=== PATIENT | female | born 1940 | race Caucasian/White ===

== ENCOUNTER 2018-01-14 08:01 | Day surgery (SDC) | payer OTHER ==
[~2018-01-14] VITALS: Ht 172.7 cm; Wt 75.6 kg
[2018-01-14] MEDS ORDERED: IOHEXOL 350 MG/ML 50 ML BTL (for Cath Lab) OTHER ONE (08:02)
[2018-01-14 09:14] VITALS: BP 122/83; PULSE 95; RESP 18; TEMP 97.8; O2SAT 96
[2018-01-14] MEDS ORDERED: METF500T4 PO ×2 (09:33→11:03)
[2018-01-14] MEDS ORDERED: MONT10TA4 PO (09:33)
[2018-01-14] MEDS ORDERED: PRAV20TA2 PO (09:33)
[2018-01-14] MEDS ORDERED: FLUT1SPR5 EACH NARE (09:33)
[2018-01-14] MEDS ORDERED: FURO1TAB62 PO (09:33)
[2018-01-14] MEDS ORDERED: FLUT1INH INH (09:33)
[2018-01-14 09:43] LABS: AUTOMATED NEUTROPHIL # 3.2 TH/MM3 (1.8-7.7); BASOPHIL # 0.1 TH/MM3 (0-0.2); BASOPHIL % 0.9 % (0.0-2.0); EOSINOPHIL # 0.6 TH/MM3 (0-0.4); HEMATOCRIT 40.5 % (35.0-46.0); HEMOGLOBIN 13.8 GM/DL (11.6-15.3); LYMPH % 36.6 % (9.0-44.0); LYMPHOCYTE # 2.5 TH/MM3 (1.0-4.8); MEAN CELL VOLUME 84.9 FL (80.0-100.0); MEAN CORPUSCULAR HEMOGLOBIN 28.9 PG (27.0-34.0); MEAN PLATELET VOLUME 8.6 FL (7.0-11.0); MONO % 7.4 % (0.0-8.0); MONOCYTE # 0.5 TH/MM3 (0-0.9); NEUT % 46.1 % (16.0-70.0); PLATELET COUNT 253 TH/MM3 (150-450); RED BLOOD COUNT 4.77 MIL/MM3 (4.00-5.30); WHITE BLOOD COUNT 6.9 TH/MM3 (4.0-11.0)
[2018-01-14] MEDS ORDERED: HEPARIN-NS/PF FLUSH BAG 2,000 ML IV FLUSH ONE (09:46)
[2018-01-14] MEDS ORDERED: HEPARIN SODIUM - IV 10,000 UNITS/10 ML VIAL ONE (09:46)
[2018-01-14] MEDS ORDERED: NITROGLYCERIN INJ 5 ML ONE (09:46)
[2018-01-14] MEDS ORDERED: MIDAZOLAM HCL 2 MG/2 ML VIAL ONE (09:46)
[2018-01-14] MEDS ORDERED: VERAPAMIL HCL 5 MG/2 ML VIAL ONE (09:47)
[2018-01-14 09:49] LABS: PROTHROMBIN TIME - PATIENT 10.5 SEC (9.8-11.6)
[2018-01-14 09:59] LABS: BICARBONATE 24.8 MEQ/L (21.0-32.0); CALCIUM 8.9 MG/DL (8.5-10.1); CREATININE 0.78 MG/DL (0.50-1.00)
--- NOTE | 2018-01-14 11:07 | CATHPROC ---
Aditive HIS Report Study Information Study Number Admission Scheduled Start Study Start [id number] Jan 14 2018 8:01AM 01/14/2018 Jan 14 2018 9:29AM [place] [facility] Cardiac Catheterization Admit Source Facility Department Other [facility] Physician and Clinical Staff Initial King Arzola Reference Library Assistant Thomas RN, Sha Recorder Elle Mac ,RT(R) Scrub Jake Abernathy,RT(R) Procedures Performed Procedure Location (Site) Vessel Name Coronary Angiograms LCA Left Coronary Coronary Angiograms RCA Right Coronary L Heart Cath Wire insertion Radial (right) Radial Art. Equipment Time Life Enrichment Specialist Description Size Mfg Part Number Used/Scraped [id number] 09:37 FARFAN CAMARGO SWAN LEVAR CATHETER FR 7 Used *[id number] TRANSDUCER, TRUWAVE [id number] 09:37 FARFAN CAMARGO * Used W/STOCKCOCK *[id number] [id number] *[id number] [id number] *[id number] 09:37 UYA100 PACK, CCL CUSTOM * Used *[id number] 09:37 UYA100 SUPPORT, ARTERIAL ADULT 10331 *[id number] Used BAND, RADIAL COMPRESSION TR [id number] 10:56 AOMi [employer]ICAL 24CM Used SHORT 24 *[id number] 09:37 Audaster WIRE, EXCHANGE 260CM 3MMJ 260CM Used *[id number] PROBE COVER, STERILE [id number] 09:37 LRN MEDICAL * Used ULTRASOUND W/ GEL *[id number] 09:37 NAMIC MANIFOLD, 4 PORT * Used *[id number] 09:37 NYCOMED OMNIPAQUE, 350 MG, 150ML 150ML [id number] Used [id number] 09:37 [place] [employer] BL[employer]ET,WARM AIR CCL * Used *[id number] SHEATH, FR6 TRANSRADIAL RM*[id number] 09:37 TERUMO MEDICAL FR 6 Used SLENDER 10CM *[id number] SHEATH, FR6 TRANSRADIAL RM*[id number] 09:37 TERUMO MEDICAL FR 6 Used SLENDER 10CM *[id number] 10:47 [place] PRIME WIRE, VERRATA 185CM 185CM Used *[id number] History: Current Medications Medication Dosage/Unit Route Frequency Last Date/Time Taken LASIX Glucophage Statins (any) History: Risk Factors Family History of Hypertension Dyslipidemia Previous [place] Previous Heart Failure Premature CAD Yes Yes No No No Prior Valve Prior PCI Prior CABG Surgery No No No Cerebrovascular Peripheral Artery Chronic Lung On Dialysis Diabetes Diabetes Therapy Disease Disease Disease No No No Yes Yes Oral History: Symptoms/Diagnosis Selection Items SOB History: Other Disease Selection Items HTN History: Other Current Smoker Quit No 50 Years Ago Labs Hgb (g/dl) Hct (%) WBC (l/cumm) Platelets (thousands) 11.60-17.00 35.00-51.00 4.00-11.00 150.00-450.00 13.8 40.5 6.9 253 Glucose (mg/dl) BUN (mg/dl) Creatinine (mg/dl) BUN:Creatinine (1:x) 74.00-106.00 7.00-18.00 0.50-1.30 10.00-20.00 105 15 0.8 18.8 Na (meq/l) K (meq/l) 136.00-145.00 3.50-5.10 142 4.2 INR (PTT:PT) 0.90-1.10 1 CPK-MB (ng/ML) 0.50-3.60 Not Drawn Medication Medication Total Dose (Bolus/Oral) Medication Total Dosage/Unit 1% XYLOCAINE 10 mL FENTANYL 50 mcg HEPARIN 4500 units RADIAL COCKTAIL 5 mL (Bolus) Medications (Bolus/Oral) Medication Time Given Dosage/Unit Administered By Reason 1% XYLOCAINE 01/14/2018 10:12:09 AM 10 mL King Wright 10 mL 1% XYLOCAINE given in lab by King Wright in Left Wrist via Subcutaneous. Ordered by King Hu FENTANYL 01/14/2018 10:12:25 AM 50 mcg Sha Guzman RN 50 mcg FENTANYL given in lab by Sha Guzman RN in Left Wrist via Peripheral IV. Ordered by King Wright Ntg 200mcg Verapamil 2.5mg Heparin RADIAL COCKTAIL 01/14/2018 10:14:05 AM 5 mL (Bolus) King Wright 3000U 5 mL (Bolus) RADIAL COCKTAIL given in lab by King Wright in Right Radial via Radial. Using [S olution Name]. Ordered by King Wright Reason: Ntg 200mcg Verapamil 2.5mg Heparin 3000U. HEPARIN 01/14/2018 10:38:26 AM 4500 units Sha Guzman RN 4500 units HEPARIN given in lab by Sha Guzman RN in Left Wrist via Peripheral IV. Ordered by King Goldman Medication (Drip) Medication Time Given Dosage/Unit Concentration/Unit Diluent (ml) Solution IV Solutions 01/14/2018 9:50:51 AM 50 mL (IV) NaCl .9 Patient arrived on IV Solutions in Left Wrist via Peripheral IV. Pump/Drip Flow using NaCl .9. Initial Case Assessment Cardiovascular HR Rhythm NIBP Chest Pain 82 sr 111/76 0 Edema Present Skin color Skin None Normal Warm Dry Circulatory - Right Pulses Dorsalis Pedis Femoral Radial 2 2 2 Scale (0,1,2,3,4,d) Circulatory - Left Pulses Dorsalis Pedis Femoral Radial 2 2 Scale (0,1,2,3,4,d) Circulatory - Lower Extremities Color Lower Right Color Lower Left Normal Normal Neurological State Oriented to time-place- Alert Moves all extremities person Respiration - General Respiration Rate SpO2 (%) (B/min) 19 94 Final Case Assessment Cardiovascular HR Rhythm NIBP Chest Pain 71 sr 93/61 0 Edema Present Skin color Skin None Normal Warm Dry Circulatory - Right Pulses Dorsalis Pedis Femoral Radial 2 2 2 Scale (0,1,2,3,4,d) Circulatory - Left Pulses Dorsalis Pedis Femoral Radial 2 2 Scale (0,1,2,3,4,d) Circulatory - Lower Extremities Color Lower Right Color Lower Left Normal Normal Neurological State Oriented to time-place- Alert Moves all extremities person Respiration - General Respiration Rate SpO2 (%) (B/min) 16 93 Chronological Log Time Study Chronological Log 9:38:00 Patient arrived via Bed. 9:38:02 Patient Name, D.O.B, / Armband Verified By R.N. Vitals capture started with the following parameters, Patient=Adult, Interval=5 min, Initial Pr wrtpld=564 mmHg, 9:44:53 Deflation Rate=5 mmHg, Cuff placed on Unknown 9:45:28 QZ=364 bpm, BBCU=067/84 mmhg, SpO2=96.0 %, Resp=12 B/min, Pain=0, Fausto=10, Feldman=2 9:50:27 HR=92 bpm, JSVE=779/76 mmhg, SpO2=96.0 %, Resp=18 B/min 9:50:31 Consent signed by the physician and the patient and verified by the [facility] staff. 9:50:37 Pre-op and post- op instructions given; patient acknowledges understanding of instructions. 9:50:38 Verbal Stimulation=2 Physical Stimulation=2 Airway=2 Respiration=2 TOTAL=8. (0=absent, 1=li mited, 2=present) 9:50:41 Patient has been NPO for More than 6Hrs. 9:50:42 Skin Breakdown- none per patient 9:50:48 Patient Warmer Placed on the Table. 9:50:49 [place] Prominences Protected 9:50:50 A # 20 IV was noted in the Wrist (left). Grade = 0 9:50:51 Patient arrived on IV Solutions in Left Wrist via Peripheral IV. Pump/Drip Flow using NaCl . 9. 9:50:52 History and physical on the chart or being dictated. Assessment: Initial Case, HR=82 BPM, Rhythm=sr, BNII=872/76 mmhg, Chest Pain=0, Edema=None, Col or=Normal, Skin = Warm, Dry Right Pulses: Alexei Ped=2, Femoral=2, Radial=2 Left Pulses: Alexei Ped=2, Femoral=2 9:50:53 Lower Right Extremities: Color=Normal Lower Left Extremities: Color=Normal Neurological: State=Alert, Ox3, ACEVES Respiration: Resp=19 B/min, SpO2=94 % 9:50:56 Reference ECG taken 9:55:13 Right radial, right brachial, and right groin prepped with 2% chlorhexidine, and draped afte r a 3 min. waiting time. 9:55:24 HR=87 bpm, VEBK=158/81 mmhg, SpO2=96.0 %, Resp=11 B/min, Pain=0, Fausto=10, Feldman=2 10:00:00 MD paged 10:00:25 HR=84 bpm, HUDN=205/78 mmhg, SpO2=93.0 %, Resp=28 B/min, Pain=0, Fausto=10, Feldman=2 10:01:00 MD responded 10:03:59 MD arrived. 10:05:26 HR=81 bpm, UELC=706/76 mmhg, Resp=15 B/min, Pain=0, Fausto=10, Feldman=2 10:07:26 Pressure channel 2 zeroed. 10:10:25 HR=93 bpm, VLXU=348/78 mmhg, SpO2=93.0 %, Resp=13 B/min, Pain=0, Fausto=10, Feldman=2 Time Out. Correct patient, correct procedure, correct physician, power injector not loaded with contrast with surgical 10:10:47 team present. Time Out Concurred by MD and individual staff in procedure. 10:11:08 Case Start 10 mL 1% XYLOCAINE given in lab by King Wright in Left Wrist via Subcutaneous. Ordered by King Wright 10:12:09 G. 10:12:25 50 mcg FENTANYL given in lab by Sha Guzman RN in Left Wrist via Peripheral IV. Ordered by King Wright. 10:13:03 Access site was Right Radial Artery. A SHEATH, FR6 TRANSRADIAL SLENDER 10CM FR 6 was advanced into the Radial (right) using the Perc utaneous 10:13:40 technique. 5 mL (Bolus) RADIAL COCKTAIL given in lab by King Wright in Right Radial via Radial. Us ing [Solution Name]. 10:14:05 Ordered by King Wright. Reason: Ntg 200mcg Verapamil 2.5mg Heparin 3000U. 10:15:27 HR=92 bpm, ZFPX=511/71 mmhg, SpO2=90.0 %, Resp=13 B/min, Pain=0, Fausto=10, Feldman=2 10:18:26 Access site was right Brachial Artery. A SHEATH, FR6 TRANSRADIAL SLENDER 10CM FR 6 was advanced into the Brach. Vein (right) using the Percutaneous :18:41 technique. 10:20:27 HR=76 bpm, WJII=084/67 mmhg, SpO2=89.0 %, Resp=14 B/min, Pain=0, Fausto=10, Feldman=2 10:20:53 A SWAN LEVAR CATHETER FR 7 was inserted via Brach. Vein (right) 10:23:09 Saturation: Site=Ao (Aorta) , O2=98.1 %, Hgb=13.8 gm/dl, Condition=Condition 1. Used in [facility]. Recorded Pressure: PCW, HR=81, Condition=Condition 1 10:23:30 (Pulmonary Capillary Wedge) PCW 10:24:37 Saturation: Site=PA (Pulmonary Artery) , O2=74.7 %, Hgb=13.8 gm/dl, Condition=Condition 1. Used in calculation. 10:25:24 HR=77 bpm, NIBP=97/68 mmhg, SpO2=89.0 %, Resp=12 B/min, Pain=0, Fausto=10, Feldman=2 Recorded Pressure: MPA, HR=78, Condition=Condition 1 10:25:37 (Main Pulmonary Artery) MPA 45//35 Recorded Pressure: RV, HR=78, Condition=Condition 1 10:26:11 (Right Ventricle) RV 43/7/11 Recorded Pressure: RA, HR=70, Condition=Condition 1 10:26:58 (Right Atrium) RA 10:27:26 [place] Levar Catheter Removed A JR 4.0 INFINITI CATHETER FR 5 was advanced over a wire. OMNIPAQUE, 350 MG, 150ML 150ML was us ed for 10:28:22 injections. Recorded Pressure: LV, HR=81, Condition=Condition 1 10:29:26 (Left Ventricle) LV 103/8/19 Recorded Pressure: LV, Ao, HR=81, Condition=Condition 1 10:29:39 (Left Ventricle) LV 107/9/16, (Aorta) Ao 102/63/80 10:30:24 The RCA was injected and visualized at various angles. OMNIPAQUE, 350 MG, 150ML 150ML used . 10:30:28 HR=80 bpm, WKRA=972/60 mmhg, SpO2=90.0 %, Resp=12 B/min, Pain=0, Fausto=10, Feldman=2 10:30:56 Catheter was removed A JL 3.5 INFINITI CATHETER FR 5 was advanced over a wire. OMNIPAQUE, 350 MG, 150ML 150ML was us ed for 10:31:49 injections. 10:33:16 The LCA was injected and visualized at various angles. OMNIPAQUE, 350 MG, 150ML 150ML used . 10:35:29 HR=75 bpm, EZPO=636/62 mmhg, SpO2=89.0 %, Resp=13 B/min, Pain=0, Fausto=10, Feldman=2 10:38:26 4500 units HEPARIN given in lab by Sha Guzman RN in Left Wrist via Peripheral IV. Ordered by King Wright 10:40:30 HR=76 bpm, NIBP=95/64 mmhg, UlX7=598 %, Resp=18 B/min, Pain=0, Fausto=10, Feldman=2 10:43:11 Pressure channel 1 zeroed. 10:45:29 HR=81 bpm, NIBP=93/64 mmhg, SpO2=91 %, Resp=18 B/min, Pain=0, Fausto=10, Feldman=2 10:46:54 Flow Wire was was placed in the LAD Prox. The FFR measures ~FFR~ percent. The IFR measures 0.95 Percent. 10:49:55 The PRIME WIRE, VERRATA 185CM 185CM was removed. 10:50:11 A WIRE, EXCHANGE 260CM 3MMJ 260CM was inserted via Radial (right). 10:50:27 Catheter was removed 10:50:32 HR=73 bpm, NIBP=90/53 mmhg, SpO2=92 %, Resp=13 B/min, Pain=0, Fausto=10, Feldman=2 10:51:18 Case End 10:52:55 Activated Clotting Time Drawn 10:55:31 HR=71 bpm, NIBP=93/61 mmhg, SpO2=93 %, Resp=18 B/min, Pain=0, Fausto=10, Feldman=2 10:56:49 Catheter(s) removed without difficulty Radial Compression Device Used. 13 mLs of air placed in BAND, RADIAL COMPRESSION TR SHORT 24 24 CM. Affected 10:56:54 hand 93 % O2 saturation. 10:58:42 ACT (Normal Range 90-180) = 319 10:59:09 VEENOUS Sheath left in place, RIGHT BRACIAL, will be removed in Holding Area 11:00:32 HR=71 bpm, NIBP=93/61 mmhg, SpO2=93 %, Resp=16 B/min, Pain=0, Fausto=10, Feldman=2 11:01:23 Vitals capture stopped. 11:01:29 Sterile dressing applied to site 11:01:30 No case complications noted. 11:01:31 Cine recording checked. 11:01:35 Bedside Report will be given. Assessment: Final Case, HR=71 BPM, Rhythm=sr, NIBP=93/61 mmhg, Chest Pain=0, Edema=None, Color= Normal, Skin = Warm, Dry Right Pulses: Alexei Ped=2, Femoral=2, Radial=2 Left Pulses: Alexei Ped=2, Femoral=2 11:01:44 Lower Right Extremities: Color=Normal Lower Left Extremities: Color=Normal Neurological: State=Alert, Ox3, ACEVES Respiration: Resp=16 B/min, SpO2=93 % 11:05:40 A Left Heart Cath was performed. 11:05:46 Patient moved to stretcher 11:07:15 Clinical correlaton risk stratification. End Study - Contrast Media Used In Study Contrast Total Opened (mL) Total Used (mL) Total Wasted (mL) Omnipaque 40 40 0 End Study - Maximum Contrast Load Max Contrast Load (mL) 472.4 End Study - Radiation Exposure Fluoro Time (minutes) 3.9 End Study - Patient Disposition Complications Transferred To No Telemetry Bed
[2018-01-14] MEDS ORDERED: ONDANSETRON HCL 4 MG/2 ML VIAL ONE (11:12)
--- NOTE | 2018-01-14 13:24 | MA ---
cc: King Wright DO DATE: 01/14/2018 DATE OF PROCEDURE: 01/14/2018. PROCEDURE: Left heart catheterization, right heart catheterization, coronary angiogram, IFR of LAD, ultrasound-guided access. PREPROCEDURE DIAGNOSES: Severe mitral regurgitation/tricuspid regurgitation, for possible surgery, shortness of breath. POSTPROCEDURE DIAGNOSES: Severe mitral regurgitation/tricuspid regurgitation, moderate coronary artery disease, mild pulmonary hypertension. MEDICATIONS: 1. Fentanyl 50 mcg. 2. Nitro 200 mcg. 3. Verapamil 2.5 mg. 4. Heparin 7500 units. CONTRAST USED: 40 mL. FLUOROSCOPY: 3.9 minutes. MODERATE SEDATION: 0 minutes. FRAILTY SCORE: 3. ESTIMATED BLOOD LOSS: 10 mL. PROCEDURAL SUMMARY: Juana Alberto is a pleasant 77-year-old female who sees my partner, Dr. Saldana, in the office and underwent an echocardiogram and was found to have severe mitral and tricuspid regurgitation. She was recommended cardiac catheterization in anticipation of possible surgery. Risks, benefits and alternatives were explained to her and she consented as such. She was brought to the lab and prepped in the usual sterile fashion. The right radial artery was accessed using a modified Seldinger technique and placement of a 5/6 [place] slender sheath. Right brachial vein was accessed using a modified Seldinger technique and ultrasound guidance with placement of a 5/6 [place] Slender sheath. Both were easily aspirated and flushed. A Reading was advanced through the brachial sheath to a wedge position. Oxygen saturations as well as pressures were recorded in a standard pullback fashion throughout the heart. Reading-Caprice catheter was removed. A JR4 was advanced over a J-wire to the ascending aorta and across the aortic valve for measurement of left ventricular pressure. This was pulled back across the aortic valve showing no significant gradient of aortic stenosis. JR4 was used for selective angiography of the right coronary artery system. This is exchanged out for a JL3.5, which was used for selective angiography of the left coronary artery system. JL3.5 was removed over a J-wire. As there was concern for mid-LAD disease and this would change her overall surgery, I felt this needed to be further investigated. As there was no plan to fix this as it would need to fix during surgery, I decided to do IFR through my 5-Guatemalan sheath. The patient was given additional heparin as an anticoagulant. A Verrata wire was taken into the distal LAD. IFR was measured at 0.95 showing nonsignificant stenosis. The wire was removed. Catheter was removed. A radial band was placed over the arteriotomy site for hemostasis. FINDINGS: LEFT MAIN: Normal-sized vessel with no disease. It bifurcates into an LAD and circumflex. LAD: Mild luminal irregularities throughout the proximal portion. Mid-portion after the first diagonal has a focal 50% to 60% lesion (iFR 0.95 showing nonsignificant stenosis). The distal LAD has no significant disease. It gives off 1 major diagonal with mild luminal irregularities. LEFT CIRCUMFLEX: Normal-sized vessel with 30% lesion in the proximal to mid-portion. It gives off 1 major obtuse marginal with no significant disease. RCA: Mild luminal irregularities throughout the proximal and mid-portion. Distally, it supplies the PDA as well as 2 small PLVs. HEMODYNAMICS: RA: 8. RV: 43/7. RVEDP: 11. PA: 45/25. Mean PA: 35. Wedge: 13. Cardiac output: 5.4. Cardiac index: 2.8. LVEDP: 16. IMPRESSIONS: 1. Severe mitral and tricuspid regurgitation. 2. Moderate coronary artery disease. 3. Mild pulmonary hypertension. 4. Shortness of breath. RECOMMENDATIONS: 1. Ms. Alberto appears to have no significant coronary artery disease that would need to be bypassed if she did have open heart surgery. 2. We will plan on doing a JACLYN on Wednesday to evaluate her valves in anticipation of possible open heart surgery. 3. She will be discharged home today. Thank you for allowing me to see Juana Alberto. If there are any questions, please do not hesitate to call. DO ROLA Doyle/ADITHYA , 12:55 PM , 01:24 PM
--- NOTE | 2018-01-14 16:38 | EKG ---
Date Performed: 01/14/2018 Time Performed: 09:19:12 PTAGE: 77 years EKG: Sinus rhythm . Left bundle branch block Abnormal ECG NO PREVIOUS TRACING DOCTOR: Clifford Vela Interpretating Date/Time 01/14/2018 16:21:48
== END 2018-01-14 16:50 | disposition home or self-care (01) ==
LOC: HDIC 08:01 → HDOC 08:01
PROVIDERS: ATTEND Nuclear Medicine Nuclear Cardiology
DX: I34.0 Nonrheumatic mitral (valve) insufficiency (principal); I07.1 Rheumatic tricuspid insufficiency; I25.10 Atherosclerotic heart disease of native coronary artery without angina pectoris; I27.20 Pulmonary hypertension, unspecified; R06.02 Shortness of breath
CPT/HCPCS: 80048; 82810; 85002; 85025; 85610; 85730; 93005; 93460; 93571; C1769; C1893; J1644; J2250; J2405; J3010; Q9967

== ENCOUNTER 2018-01-17 09:14 | Day surgery (SDC) | payer OTHER ==
[~2018-01-17 09:14] MED LIST: FLUT1INH INH; FLUT1SPR5 EACH NARE; FURO1TAB62 PO; METF500T4 PO; MONT10TA4 PO; PRAV20TA2 PO
[2018-01-17] MEDS ORDERED: METOPROLOL TARTRATE 25 MG TAB PO PRN (10:00)
[2018-01-17] MEDS ORDERED: CHLORHEXIDINE GLUCONATE 2 % 1 PACK (2 CLOTHS) TOPICAL PRN (10:00)
[2018-01-17] MEDS ORDERED: POVIDONE IODINE 5% (ANTISEPSIS KIT) 4 APPLICATIONS EACH NARE PRN (10:00)
[2018-01-17] MEDS ORDERED: SODIUM CHLORID 0.9% 500 ML IV PRN (10:00)
[2018-01-17] MEDS ORDERED: INSULIN HUMAN REGULAR 1,000 UNITS/10 ML VIAL SQ PRN (10:00)
[2018-01-17] MEDS ORDERED: LACTATED RINGER'S 1000 ML IV PRN (10:00)
[2018-01-17] MEDS ORDERED: NURSING INFORMATION XX PRN (11:30)
[2018-01-17] MEDS ORDERED: LIDOCAINE HCL 1% PF 5 ML SYRINGE OTHER ONE (12:00)
[2018-01-17] MEDS ORDERED: PROPOFOL 200 MG/20 ML AMP IV ONE (12:00)
--- NOTE | 2018-01-17 12:03 | ECHRPT ---
Indication: CONCLUSIONS Mildly dilated left ventricle. The left ventricular systolic function is severely reduced with an estimated ejection fraction in th e range of 25-30%. There is global left ventricular dysfunction. No atrial level shunt is demonstrated by color flow Doppler or agitated saline imaging. Severe mitral valve regurgitation. The mitral valve regurgitation jet is directed centrally due to poor leaflet coaptation, as well as the posterior leaflet appears somewhat tethered. There is severe tricuspid regurgitation. BP: / HR: Rhythm: Sinus Technical Quality:Good Medications Complications Proc. Components Anesthesia at bedside for moderate sedation. FINDINGS LEFT VENTRICLE Mildly dilated left ventricle. The left ventricular systolic function is severely reduced with an estimated ejection fraction in th e range of 25-30%. There is global left ventricular dysfunction. RIGHT VENTRICLE Grossly normal LEFT ATRIUM The left atrial size is moderately dilated. RIGHT ATRIUM The right atrial size is moderately dilated. ATRIAL APPENDAGES Normal left atrial appendage size with no evidence of thrombus formation. ATRIAL SEPTUM Normal atrial septal thickness. No atrial level shunt is demonstrated by color flow Doppler or agitated saline imaging. AORTA Descending aorta with no significant disease or dissection noted MITRAL VALVE Structurally normal mitral valve. Severe mitral valve regurgitation. The mitral valve regurgitation jet is directed centrally due to poor leaflet coaptation, as well as the posterior leaflet appears somewhat tethered. AORTIC VALVE Trileaflet aortic valve. No aortic valve stenosis or regurgitation. TRICUSPID VALVE Structurally normal tricuspid valve. There is severe tricuspid regurgitation. VESSELS Grossly normal Trivial pulmonary valve regurgitation. King Wright DO (Electronically Signed) Final Date:17 Jan 2018 12:02
[2018-01-17] MEDS ORDERED: RESP: ALBUTEROL 2.5 MG/IPRATROPIUM 0.5 MG NEB (SCH) NEB ONE (13:30)
--- NOTE | 2018-01-17 14:42 | RADRPT ---
EXAM DATE/TIME: 01/17/2018 13:45 [place] COMPARISON: No previous studies available for comparison. INDICATIONS : Preop cardiac surgery. MEDICAL HISTORY : Chronic obstructive pulmonary disease. Diabetic. SURGICAL HISTORY : None. ENCOUNTER: Initial ACUITY: 1 day PAIN SCORE: 0/10 LOCATION: Bilateral neck PEAK SYSTOLIC VELOCITIES (cm/sec): ICA/CCA RATIO: Right: 1.0 Left: 1.1 ICA: Right: 69.1 Left: 77.4 CCA: Right: 67.2 Left: 72.3 ECA: Right: 31.3 Left: 32.2 VERTEBRAL: Right: 44.9 antegrade Left: 44.4 antegrade Elevated flow velocities and ICA/CCA ratios have been found to correlate with increased degrees of vessel stenosis, calculated as percentage of diameter relative to a normal segment of distal ICA/CCA FINDINGS: RIGHT CAROTID: No significant stenosis is visualized. The waveforms are within normal limits. LEFT CAROTID: No significant stenosis is visualized. The waveforms are within normal limits. VERTEBRAL ARTERIES: Antegrade flow is seen in both vertebral arteries. MISCELLANEOUS: None. CONCLUSION: Negative carotid ultrasound examination. Jayesh Antonio MD on January 17, 2018 at 14:39 Board Certified Radiologist. This report was verified electronically.
[2018-01-17] MEDS ORDERED: IOHEXOL 350 MG/ML 10 ML VIAL (for RAD DIAG) IVCONTRAST ONE (15:00)
--- NOTE | 2018-01-17 16:21 | MB ---
cc: Milla Cline DATE: 01/17/2018 HISTORY OF PRESENT ILLNESS: A 77-year-old female patient of Dr. Narda Torres and Dr. Saldana who has had symptoms of shortness of breath and some lower extremity edema for the past month, easily fatigued, history of mitral regurgitation and tricuspid regurgitation, recently underwent a cardiology followup, which showed ejection fraction of 40%; however on catheterization the EF was more like 30%. The echo showed some global hypokinesis. The right ventricle was moderately dilated, left atrium moderately dilated. The aortic valve had a valve area of 2.7. The mitral valve was severe regurgitation with an eccentric jet. The tricuspid valve had severe regurgitation with RV pressure of 71 mmHg consistent with moderate pulmonary hypertension. She underwent cardiac catheterization on the 4th, right and left heart catheterization, which showed some approximately 50% stenosis in the mid portion of the LAD. The circuit had some mild disease of 30%. RA pressures were 8, RV pressures 43/7, PA pressures are 45/25, a wedge pressure of 13, cardiac output of 5.4. She underwent transesophageal echocardiogram today by Dr. Wright and we were consulted today by Dr. Wright for mitral valve and tricuspid valve repair/replacement. PAST MEDICAL HISTORY: Includes tricuspid regurgitation, pulmonary hypertension and mitral regurgitation. Diabetes mellitus, diet controlled. She has documented metformin, but does not take it. She checks her blood sugars. Hyperlipidemia, hypertension, left bundle branch block, history of PSVT, postural vertigo. PAST SURGICAL HISTORY: No surgical history. ALLERGIES: NO KNOWN ALLERGIES: HOME MEDICATIONS: 1. Flonase. 2. Lasix. 3. Losartan. 4. Pravachol. FAMILY HISTORY: Mother at 72 from diabetes. SOCIAL HISTORY: The patient is with 3 children. Remote history of tobacco in her early 20s. No alcohol. Retired. She does wear reading glasses. REVIEW OF SYSTEMS: CONSTITUTIONAL: No night sweats, fever, heat and cold intolerance. SKIN: No psoriasis, itching or hives. HEENT: No blurred vision or hearing loss. RESPIRATORY: Positive for shortness of breath. No paroxysmal nocturnal dyspnea. CARDIOVASCULAR: As above in the HPI. GASTROINTESTINAL: No diarrhea or vomiting. GENITOURINARY: No burning, frequency or urgency. CENTRAL NERVOUS SYSTEM: History of TIA, CVA or seizure disorder. ENDOCRINOLOGY: Positive for diabetes. PHYSICAL EXAMINATION: VITAL SIGNS: Blood pressure is 120/80, heart rate of 94, temperature T-max 97.8, room air 93%. GENERAL: Awake, alert, in no acute distress. HEENT: Head is normocephalic, atraumatic. Pupils equal and reactive. Oral mucosa pink, moist. NECK: Supple. No JVD. HEART: Heart sounds S1, S2. Regular rate and rhythm. There is a holosystolic mitral regurgitation murmur. LUNGS: Clear to auscultation. No wheezes, rales or rhonchi. ABDOMEN: Soft, nontender, no masses or organomegaly. EXTREMITIES: Reveal trace edema with no cyanosis, no venous insufficiency. LABORATORY DATA: Shows hemoglobin 13, hematocrit of 40, white cell count of 6.9, platelet count of 253. Sodium 142, potassium 4.2, BUN of 18, creatinine 0.78. INR 1.0. IMAGING STUDIES: Carotid ultrasound is unremarkable. TAVR CTA is pending. ASSESSMENT AND PLAN: This is a 77-year-old female with severe mitral and tricuspid regurgitation. The films have been evaluated by Dr. Mahsa Hurley. The plan will be for mitral valve repair/replacement, tricuspid valve repair/replacement on 01/24/2018. The procedures, alternatives and risks have been discussed with the patient. She has elected for a tissue valve. This was also discussed with the . Full workup is still pending including the CTA of the chest. Further planning per Dr. Mahsa Hurley. PRAFUL Alexis MD JRT/MARC , 03:50 PM , 04:20 PM
[2018-01-17 17:37] LABS: BILIRUBIN, URINE NEG (NEG); BLOOD, URINE NEG (NEG); GLUCOSE,URINE NEG (NEG); KETONE, URINE NEG (NEG); NITRITE,URINE NEG (NEG); PH, URINE 5.5 (5.0-8.5); SQUAMOUS EPITHELIAL CELL URINE 1 /hpf (0-5); URINE COLOR LIGHT-YELLOW (YELLW/STRAW); URINE LEUKOCYTE ESTERASE NEG (NEG)
[2018-01-17 17:38] LABS: AUTOMATED NEUTROPHIL # 3.5 TH/MM3 (1.8-7.7); BASOPHIL # 0.1 TH/MM3 (0-0.2); EOSINOPHIL # 0.4 TH/MM3 (0-0.4); EOSINOPHIL % 5.7 % (0.0-4.0); HEMATOCRIT 38.9 % (35.0-46.0); LYMPH % 33.7 % (9.0-44.0); LYMPHOCYTE # 2.2 TH/MM3 (1.0-4.8); MEAN CELL VOLUME 86.2 FL (80.0-100.0); MEAN CORPUSCULAR HEMOGLOBIN 28.9 PG (27.0-34.0); MEAN CORPUSCULAR HGB CONC 33.5 % (32.0-36.0); MEAN PLATELET VOLUME 8.9 FL (7.0-11.0); MONO % 6.6 % (0.0-8.0); MONOCYTE # 0.4 TH/MM3 (0-0.9); PLATELET COUNT 225 TH/MM3 (150-450); RED BLOOD COUNT 4.51 MIL/MM3 (4.00-5.30); RED CELL DISTRIBUTION WIDTH 14.1 % (11.6-17.2); WHITE BLOOD COUNT 6.6 TH/MM3 (4.0-11.0)
[2018-01-17 17:42] LABS: PROTHROMBIN TIME - PATIENT 10.5 SEC (9.8-11.6)
[2018-01-17 17:58] LABS: ALBUMIN 3.6 GM/DL (3.4-5.0); AST (GOT) 24 U/L (15-37); BICARBONATE 24.9 MEQ/L (21.0-32.0); BLOOD UREA NITROGEN 12 MG/DL (7-18); CALCIUM 8.5 MG/DL (8.5-10.1); CHLORIDE 107 MEQ/L (98-107); CREATININE 0.77 MG/DL (0.50-1.00); GLOMERULAR FILTRATION RATE 73 ML/MIN (>89); GLUCOSE,RANDOM 118 MG/DL (74-106); SODIUM (NA) 140 MEQ/L (136-145)
[2018-01-17 17:59] LABS: ALT (GPT) 49 U/L (10-53)
[2018-01-17 18:02] LABS: ALKALINE PHOSPHATASE 78 U/L (45-117); TOTAL BILIRUBIN ADULT 0.7 MG/DL (0.2-1.0); TOTAL PROTEIN 6.5 GM/DL (6.4-8.2)
[2018-01-17 21:34] LABS: HEMOGLOBIN A1C 5.8 % (4.3-6.0)
--- NOTE | 2018-01-18 08:23 | RADRPT ---
EXAM DATE/TIME: 01/17/2018 15:22 [facility] COMPARISON: No previous studies available for comparison. INDICATIONS : Preoperative Trans Aortic Valve Replacement. IV CONTRAST: 100 cc Omnipaque 350 (iohexol) IV RADIATION DOSE: 28.16 CTDIvol (mGy) MEDICAL HISTORY : Chronic obstructive pulmonary disease. SURGICAL HISTORY : None. ENCOUNTER: Initial ACUITY: 1 day PAIN SCALE: 0/10 LOCATION: Bilateral chest TECHNIQUE: Volumetric scanning was performed using a multi-row detector CT scanner. The data was post processed with a variety of visualization algorithms including full volume maximum intensity projection, multi -planar sliding thin slab reformation, curved planar reformation, and surface rendering techniques. Using automated exposure control and adjustment of the mA and/or kV according to patient size, radiat ion dose was kept as low as reasonably achievable to obtain optimal diagnostic quality images. DIC OM format image data is available electronically for review and comparison. FINDINGS: CARDIAC: The coronaries are very difficult to delineate any detail on the current exam probably due to the hea rt rate. There does appear to be some calcification in the mid LAD. I believe the patient is right co ronary dominant. No pericardial effusions AORTIC ROOT/VALVE: 3 cusps are evident with no calcifications. The aortic root measures 3.8. Mid thoracic aorta measures 3.2 with no calcifications. THORACIC AORTA: Bovine configuration of the aortic arch. Minimal ectasia of the distal arch, just past the left subcl aung suggesting a mild coarctation. No significant stenosis, however. There is some calcification in the distal arch and origin of the left subclavian with no stenosis. ABDOMINAL AORTA: No evidence of aneurysm, mural thrombus, dissection, mural calcification, or stenosis. CELIAC ARTERY: Celiac artery is widely patent. SMA: Superior mesenteric artery is widely patent. RIGHT RENAL ARTERY: Right renal artery is widely patent. LEFT RENAL ARTERY: Left renal artery is widely patent. Small accessory left renal artery is also patent. RIGHT COMMON ILIAC: No evidence of aneurysm, mural thrombus, dissection, mural calcification, or stenosis. The common fe moral measures 7.1 mm. LEFT COMMON ILIAC: No evidence of aneurysm, mural thrombus, dissection, mural calcification, or stenosis. The common fe moral measures 7.4 mm. THORAX: There are bilateral pleural effusions, right greater than left. Reactive type lymph nodes are seen in the pretracheal distribution. There also is suggestion of bihilar adenopathy with chronic interstiti al changes in the bases and some regional bronchiectasis or characteristic of a chronic inflammatory process. ABDOMEN: Cholelithiasis with small stones in the dependent portion of the gallbladder lumen. Diverticular dise ase through out the colon without diverticulitis. The appendix is identified and is radiographically normal. Large amount of stool in the rectal vault. Small hiatal hernia PELVIS: Pelvic viscera is intact. Again, large amount of stool in the rectal wall CONCLUSION: 1. Bovine configuration of the arch. Aortic root is normal in caliber with no significant calcificat ion of the aortic valve. 2. Mild ectasia of the distal arch with suggestion of a mild coarctation. No significant stenosis, ho wever. 3. Abdominal and pelvic vasculature is normal in caliber throughout with the common femorals both jay sure proximally 7-7.5 mm in diameter. 4. Single right with a main and accessory left renal artery. 5. Small moderate bilateral pleural effusions, right greater than left with probable chronic inflamma tory changes in both lung bases as evident by regional bronchiectasis, bihilar and pretracheal adenop athy. 6. Cholelithiasis. 7. Diverticular disease throughout the colon without diverticulitis. 8. Small hiatal hernia. Waqas Berman MD on January 18, 2018 at 8:05 Board Certified Radiologist. This report was verified electronically.
--- NOTE | 2018-01-18 09:25 | RSPPFT ---
DATE OF PROCEDURE: 01/17/18 COMMENTS: Spirometry with FVC of 1.8 predicted 3.0, FEV1 of 0.9 predicted 2.1, FEV1/FVC ratio at 53% predicted 80%. Post-bronchodilator values have not been measured. Lung volumes have not been measured. IMPRESSION: On the basis of the above, patient has an obstructive lung defect.
== END 2018-01-17 17:15 | disposition home or self-care (01) ==
LOC: HSDC 09:14 → HDIC 09:15 → HSDC 17:15
PROVIDERS: ATTEND Nuclear Medicine Nuclear Cardiology
DX: I34.0 Nonrheumatic mitral (valve) insufficiency (principal); I07.1 Rheumatic tricuspid insufficiency; J90 Pleural effusion, not elsewhere classified; J44.9 Chronic obstructive pulmonary disease, unspecified; E78.5 Hyperlipidemia, unspecified; K44.9 Diaphragmatic hernia without obstruction or gangrene; K80.20 Calculus of gallbladder without cholecystitis without obstruction; E11.9 Type 2 diabetes mellitus without complications; Z79.84 Long term (current) use of oral hypoglycemic drugs; Z01.818 Encounter for other preprocedural examination
CPT/HCPCS: 01922; 74174; 80053; 81001; 83036; 85025; 85610; 86850; 86900; 86901; 87641; 93312; 93320; 93325; 93880; 94010; 94664; Q9967

== ENCOUNTER 2018-01-24 05:28 | Inpatient (IN) | payer OTHER, MEDICARE ==
[~2018-01-24] VITALS: Ht 172.7 cm; Wt 78.9 kg
[2018-01-24] VITALS (12 sets, daily range): BP systolic 108–122; BP diastolic 59–68; PULSE 98–108; RESP 14–18; TEMP 97.6–97.8; O2SAT 92–99
[2018-01-24] MEDS ORDERED: METOPROLOL TARTRATE 25 MG TAB PO PRN (05:45)
[2018-01-24] MEDS ORDERED: POVIDONE IODINE 5% (ANTISEPSIS KIT) 4 APPLICATIONS EACH NARE PRN (05:45)
[2018-01-24] MEDS ORDERED: SODIUM CHLORID 0.9% 500 ML IV PRN (05:45)
[2018-01-24] MEDS ORDERED: CHLORHEXIDINE GLUCONATE 2 % 1 PACK (2 CLOTHS) TOPICAL PRN (05:45)
[2018-01-24] MEDS ORDERED: ceFAZolin 2 GM PREMIX 50 ML IV SCH ×2 (06:00→13:30)
[2018-01-24] MEDS ORDERED: DEXTROSE 50% IN WATER 50 ML VIAL(D50) IV PUSH PRN ×2 (06:00→13:30)
[2018-01-24] MEDS ORDERED: METOPROLOL TARTRATE 25 MG TAB PO SCH (06:00)
[2018-01-24] MEDS ORDERED: INSULIN REGULAR 100 UNITS in NS 100 ML IV PRN (06:00)
[2018-01-24] MEDS: CHLORHEXIDINE GLUCONATE 4% SOLN 120 ML BTL TOPICAL SCH ×2 (06:00→07:30)
[2018-01-24] MEDS ORDERED: SODIUM CHLORIDE 0.9% FLUSH 10 ML FLUSH IV FLUSH PRN ×3 (06:00→13:30)
--- NOTE | 2018-01-24 06:12 | RADRPT ---
EXAM DATE/TIME: 01/24/2018 06:53 [facility] COMPARISON: No previous studies available for comparison. INDICATIONS : Evaluate for pneumonia, pneumothorax, and/or communicable disease. MEDICAL HISTORY : None. SURGICAL HISTORY : None. ENCOUNTER: Initial ACUITY: 1 day PAIN SCORE: 0/10 LOCATION: Bilateral chest FINDINGS: Small bilateral pleural effusions present. Minimal basilar atelectasis. Mild cardiomegaly. Mildly tor tuous aorta. No pneumothorax. CONCLUSION: 1. Small bilateral pleural effusions with basilar atelectasis. Cardiomegaly. Ishan Miller MD on January 24, 2018 at 6:10 Board Certified Radiologist. This report was verified electronically.
[2018-01-24] MEDS: LACTATED RINGER'S 1000 ML IV PRN ×2 (06:15→14:35)
[2018-01-24] MEDS ORDERED: ASPI81CH5 CHEW (06:15)
[2018-01-24] MEDS ORDERED: HEPARIN SODIUM - SQ 10,000 UNITS/ML VIAL ONE (06:18)
[2018-01-24] MEDS ORDERED: VANCOMYCIN HCL 1000 MG VIAL ONE (06:19)
[2018-01-24] MEDS ORDERED: ceFAZolin 2 GM PREMIX 50 ML ONE (06:19)
[2018-01-24] MEDS ORDERED: ceFAZolin INJ 1,000 MG VIAL ONE (06:19)
[2018-01-24] MEDS: HEPARIN SODIUM - SQ 10,000 UNITS/ML VIAL ONE (06:19)
[2018-01-24] MEDS ORDERED: MIDAZOLAM HCL 5 MG/ML VIAL (1 ML) ONE (07:02)
[2018-01-24] MEDS ORDERED: fentaNYL CITRATE 250 MCG/5 ML AMP ONE ×2 (07:02)
[2018-01-24] MEDS ORDERED: CUSTODIOL HTK IRR SOLN 2,000 ML ONE (07:25)
[2018-01-24] MEDS: POTASSIUM CHLOR 20 MEQ ONE ×2 (07:26→14:30)
[2018-01-24] MEDS ORDERED: POTASSIUM CHLOR 20 MEQ PREMIX 100 ML ONE (07:28)
[2018-01-24] MEDS ORDERED: MANNITOL INJ 100 ML ONE (07:28)
[2018-01-24] MEDS ORDERED: ALBUMIN 25% INJ 100 ML IV ONE (07:29)
[2018-01-24] MEDS: HEPARIN SODIUM - IV 10,000 UNITS/10 ML VIAL ONE (07:29)
--- NOTE | 2018-01-24 09:35 | PD.CAR.PN ---
CVT Progress Note Subjective/Hospital Course: A 77-year-old female patient of Dr. Narda oTrres and Dr. Saldana , initially seen 01/17/18, who has had symptoms of shortness of breath and some lower extremity edema for the past month, easily fatigued, history of mitral regurgitation and tricuspid regurgitation, recently underwent a cardiology followup, which showed ejection fraction of 40%; however on catheterization the EF was more like 30%. The echo showed some global hypokinesis. The right ventricle was moderately dilated, left atrium moderately dilated. The aortic valve had a valve area of 2.7. The mitral valve was severe regurgitation with an eccentric jet. The tricuspid valve had severe regurgitation with RV pressure of 71 mmHg consistent with moderate pulmonary hypertension. She underwent cardiac catheterization on the , right and left heart catheterization, which showed some approximately 50% stenosis in the mid portion of the LAD. The circuit had some mild disease of 30%. RA pressures were 8, RV pressures 43/7, PA pressures are 45/25, a wedge pressure of 13, cardiac output of 5.4. We were consulted on 01/17 after JACLYN completed by Dr Wright for mitral valve and tricuspid valve repair/replacement. PAST MEDICAL HISTORY: Includes tricuspid regurgitation, pulmonary hypertension and mitral regurgitation. Diabetes mellitus, diet controlled. She has documented metformin, but does not take it. She checks her blood sugars. Hyperlipidemia, hypertension, left bundle branch block, history of PSVT , postural vertigo. 01/24 Pt electively admitted for surgery today Objective: Vital Signs Date Time Temp Pulse Resp B/P (MAP) Pulse Ox O2 Delivery O2 Flow Rate FiO2 01/24/18 06:00 97.6 83 20 110/71 (84) 93 (1) Diabetes mellitus (2) Tricuspid regurgitation (3) Mitral regurgitation Milla Cline January 24, 2018 09:35
[2018-01-24] MEDS: CEFAZOLIN 500 MG in NS IRR BTL 500 ML IRRIGATION SCH ×2 (10:14→13:38)
[2018-01-24] MEDS ORDERED: ePHEDrine/NS 25 MG/5 ML SYRINGE IV ONE (12:00)
[2018-01-24] MEDS ORDERED: SODIUM BICARBONATE 8.4% INJ 50 MEQ/50 ML SYR IV ONE (12:00)
[2018-01-24] MEDS ORDERED: CALCIUM CHLORIDE 10% SOLN 1 GRAM/10 ML SYR IV ONE (12:00)
[2018-01-24] MEDS ORDERED: DOPamine 800 MG/500 ML INJ 500 ML IV ONE (12:00)
[2018-01-24] MEDS ORDERED: PHENYLEPH/NS 1000 MCG/10 ML SYR IV ONE (12:00)
[2018-01-24] MEDS ORDERED: PROPOFOL 500 MG/50 ML BTL IV ONE (12:00)
[2018-01-24] MEDS ORDERED: PHENYLEPHRINE HCL 10 MG/ML VIAL IV ONE (12:00)
[2018-01-24] MEDS ORDERED: EPINEPHrine HCL (1:1000) 1 MG/ML VIAL IV ONE (12:00)
[2018-01-24] MEDS ORDERED: MAGNESIUM SULFATE 1 GM/2 ML VIAL IV ONE (12:00)
[2018-01-24] MEDS ORDERED: AMINOCAPROIC ACID INJ 250 MG/ML 20 ML VIAL IV ONE (12:00)
[2018-01-24] MEDS ORDERED: HEPARIN SODIUM - SQ 10,000 UNITS/ML VIAL OTHER ONE (12:00)
[2018-01-24] MEDS ORDERED: VECURONIUM BROMIDE 10 MG VIAL IV ONE (12:00)
[2018-01-24] MEDS ORDERED: PROTAMINE SULFATE 250 MG/25 ML VIAL IV ONE (12:00)
[2018-01-24] MEDS ORDERED: SUCCINYLCHOLINE CHLORIDE 100 MG/5 ML SYRINGE IV PUSH ONE (12:00)
[2018-01-24] MEDS: BUPIVACAINE LIPOSO PF 1.3% INJ 20 ML, DEXAMETHASONE INJ 4 MG, MORPHINE INJ 8 MG in SODI... IRRIGATION SCH ×3 (13:04→13:38)
[2018-01-24] MEDS ORDERED: LACTATED RINGER'S 1000 ML INJ 500 ML IV PRN (13:24)
[2018-01-24] MEDS ORDERED: DOBUTamine PREMIX DRIP 250 ML IV PRN (13:24)
[2018-01-24] MEDS ORDERED: METOPROLOL TARTRATE 5 MG/5 ML VIAL IV PUSH PRN (13:30)
[2018-01-24] MEDS ORDERED: DEXMEDETOMIDINE INJ 200 MCG in SODIUM CHLORIDE 0.9% INJ 50 ML IV PRN (13:30)
[2018-01-24] MEDS ORDERED: DOPamine 800 MG/500 ML INJ 500 ML IV PRN (13:30)
[2018-01-24] MEDS ORDERED: NITROGLYCERIN-D5W 50 MG/250 ML 250 ML IV PRN (13:30)
[2018-01-24] MEDS ORDERED: SODIUM BICARBONATE 8.4% SOLN 50 MEQ/50 ML VIAL IV PUSH PRN ×2 (13:30)
[2018-01-24] MEDS ORDERED: CALCIUM CHLORIDE 10% 1 GRAM/10 ML VIAL IV PUSH PRN (13:30)
[2018-01-24] MEDS ORDERED: INSULIN REGULAR (IV INFUSION) 100 UNITS in SODIUM CHLORIDE 0.9% INJ 99 ML IV PRN (13:30)
[2018-01-24] MEDS ORDERED: RESP: RACEPINEPHRINE 2.25% 0.5 ML NEB NEB PRN (13:30)
[2018-01-24] MEDS ORDERED: MAGNESIUM SULFATE INJ 2 GM in SODIUM CHLORIDE 0.9% INJ 100 ML IV PRN ×4 (13:30)
[2018-01-24] MEDS ORDERED: MORPHINE SULFATE 4 MG/ML INJ IV PUSH PRN (13:30)
[2018-01-24] MEDS ORDERED: POTASSIUM CHLOR 20 MEQ PREMIX 100 ML IV PRN ×2 (13:30)
[2018-01-24] MEDS ORDERED: ACETAMINOPHEN 650 MG SUPP RECTAL PRN (13:30)
[2018-01-24] MEDS ORDERED: hydrALAZINE HCL 20 MG/ML VIAL IV PUSH PRN (13:30)
[2018-01-24] MEDS ORDERED: CLEVIDIPINE INJ 50 ML IV PRN (13:30)
[2018-01-24] MEDS ORDERED: POTASSIUM CHLORIDE 20 MEQ CONTROLLED RELEASE TAB PO PRN ×2 (13:30)
[2018-01-24] MEDS ORDERED: Post-op Orders (for Pharmacy) OTHER ONE (13:30)
[2018-01-24] MEDS ORDERED: PHENYLEPHRINE INJ 40 MG in DEXTROSE 5% IN WATE 500 ML INJ 496 ML IV PRN ×2 (13:30)
[2018-01-24] MEDS ORDERED: MEPERIDINE HCL 25 MG/ML VIAL IV PUSH PRN (13:30)
[2018-01-24] MEDS ORDERED: RESP: ALBUTEROL 2.5 MG/IPRATROPIUM 0.5 MG NEB (PRN) NEB (13:30)
[2018-01-24] MEDS ORDERED: TERBUTALINE INJ 1 MG/ML AMP SQ PRN (14:15)
[2018-01-24] MEDS ORDERED: DOPamine 400 MG/250 ML PREMIX IV PRN (14:15)
--- NOTE | 2018-01-24 14:22 | RADRPT ---
EXAM DATE/TIME: 01/24/2018 14:06 [place] Corrected on: January 26, 2018; Corrected Report date [facility] COMPARISON: CHEST SINGLE AP, January 24, 2018, 6:53. INDICATIONS : Post CABG MEDICAL HISTORY : Cardiovascular disease. SURGICAL HISTORY : CABG. ENCOUNTER: Subsequent ACUITY: 1 day PAIN SCORE: Non-responsive. LOCATION: Bilateral chest FINDINGS: Interval median sternotomy and CABG/cardiac valve replacement. ETT at the level the clavicles. Right IJ introducer in the proximal SVC. Mediastinal drains in place. No significant pneumothorax. Mild air space disease at the left lung base. Cardiomediastinal contours are stable. Remainder of exam is unch anged. CONCLUSION: 1. Expected postoperative features of recent CABG with tubes and lines as above. 2. No pneumothorax. 3. Mild airspace disease in the left lung base, likely atelectasis. Ty Daniels MD on January 24, 2018 at 14:18 Board Certified Radiologist. This report was verified electronically.
[2018-01-24] MEDS: EPINEPHrine 2 MG/D5W 250 ML IV PRN ×2 (15:27)
[2018-01-24] MEDS: KETOROLAC TROMETHAMINE 30 MG/ML (IVP) VIAL IV PUSH PRN (15:53)
[2018-01-24] MEDS: ACETAMINOPHEN 1000 MG/100 ML 100 ML IV SCH ×2 (15:53→22:00)
--- NOTE | 2018-01-24 15:54 | MB ---
cc: Julisa Martinez MD DATE: 01/24/2018 DATE OF : 1940 HISTORY OF PRESENT ILLNESS: The patient is a 77-year-old female with a past medical history of hypertension, hyperlipidemia, vertigo, who underwent a cardiac catheterization by Dr. Wright on 01/14/2018 which showed severe mitral valve regurgitation, severe tricuspid regurgitation, moderate coronary artery disease and mild pulmonary hypertension. She underwent a transesophageal echocardiogram on 01/17/2018 which showed cardiomyopathy with ejection fraction of 25-30%, severe mitral and, tricuspid valve regurgitation. The patient was electively admitted earlier today and she underwent mitral and tricuspid valve repair by Dr. Hurley. She remained on mechanical ventilation postop. The patient received 2 liters of crystalloids in the OR and 850 mL of Cell Saver. Her urine output was 700 mL. When seen, the patient is on low-dose Diprivan infusion along with epinephrine, 3 mcg per minute, and insulin drip at 6 units an hour. A chest x-ray postop showed no evidence of any pneumothorax, mild airspace disease in the left lung base likely related to atelectasis. Critical Care Medicine was consulted for critical care management. Her current blood pressure is 118/62 on the arterial line with a pulse of 107, and saturation of 95%. PAST MEDICAL HISTORY: Significant for diabetes mellitus, diet controlled, hyperlipidemia, hypertension, vertigo, mild pulmonary hypertension, severe mitral and tricuspid valve regurgitation. PAST SURGICAL HISTORY: Status post mitral and tricuspid valve repair today. ALLERGIES: NO KNOWN DRUG ALLERGIES. REPORTED MEDICATIONS: 1. Flonase. 2. Lasix. 3. Losartan. 4. Pravachol. FAMILY HISTORY: Diabetes mellitus runs in the family. SOCIAL HISTORY: with 3 children. Remote history of tobacco use. No evidence of any alcohol use. The patient is retired. REVIEW OF SYSTEMS: As per HPI. Rest of review of systems unobtainable as the patient is intubated. PHYSICAL EXAMINATION: GENERAL: A 77-year-old male remains on mechanical ventilation postop. VITAL SIGNS: Temperature 97.6, pulse of 107, blood pressure 118/62 on the arterial line, saturation 95%. HEENT: Atraumatic, normocephalic. Pupils equal, round, reactive to light and accommodation. Extraocular muscles intact. Conjunctivae pink. Nonicteric sclerae. Oral mucosa within normal limits. NECK: Supple. No JVD, adenopathy or thyromegaly. Trachea in the midline. HEART: Regular rate and rhythm. Normal S1, S2. Systolic murmur noted. LUNGS: Bilateral equal air entry. No rales or wheezing. ABDOMEN: Soft, nontender, nondistended, positive bowel sounds. EXTREMITIES: No cyanosis, clubbing, edema. NEUROLOGIC: Intubated and sedated. LABORATORY DATA: From 01/17/2018, sodium 140, potassium 4, chloride 107, CO2 24, BUN 12, creatinine 0.77, glucose 118. WBC 6.6, hemoglobin 13, hematocrit 38, platelet count 225. RADIOGRAPHIC STUDIES: Chest x-ray postop showed postop changes, no evidence of pneumothorax. Mild airspace disease in left lung base, likely representing atelectasis. IMPRESSION: 1. Status post mitral and tricuspid valve repair. 2. Mechanical ventilation, dependent postoperatively. 3. Cardiomyopathy with ejection fraction of 25-30%. 4. Status post a cardiac catheterization on 01/14/2018, which showed moderate coronary artery disease with severe mitral regurgitation and tricuspid regurgitation. 5. Atelectasis. 6. History of hypertension. 7. Hyperlipidemia. 8. Diet-controlled diabetes mellitus. RECOMMENDATIONS: 1. The patient is on a low-dose Diprivan infusion for sedation. Daily sedation vacation. Monitor neuro status closely. 2. Continue with vent support and maintain sats above 92%. 3. Bronchodilators in the form of DuoNeb q. 6 hours and ICU vent bundle. 4. Spontaneous breathing trials and extubation as tolerated per protocol. 5. Wean off epinephrine drip. She is currently on 3 mcg per minute. Monitor heart rate and blood pressure closely and maintain MAP greater than 65 mmHg. Transesophageal echocardiogram showed an EF of 25-30%. 6. Monitor chest tube drainage. Chest tube management per CT Surgery. 7. The patient was placed on aspirin 81 mg, Plavix 75 mg, amiodarone 200 mg q.12h to start on 01/25/2018. 8. Monitor renal function, I's and O's and electrolyte replacement per protocol. 9. Keep n.p.o. for now and place on Protonix 40 mg daily for GI prophylaxis. 10. Perioperative antibiotics per CT Surgery. She is currently on cefazolin. Monitor for signs of infection which include fever and WBC. The arriola culture if spikes a fever. 11. Glycemic control. She is currently on insulin drip at 6 units an hour. We will transition to a sliding scale insulin. 12. Monitor CBC. 13. Gastrointestinal prophylaxis with Protonix and DVT prophylaxis with SCDs. Start chemical anticoagulation prophylaxis once cleared by CT surgery. 14. Right IJ and right radial arterial line in place. 15. Will check STAT labs now which include CBC and CMP. 16. Further recommendations will be based on hospital course. MD SYMONE Sage/ADITHYA , 03:21 PM , 03:53 PM
[2018-01-24] MEDS ORDERED: RESP: ALBUTEROL 2.5 MG/IPRATROPIUM 0.5 MG NEB (SCH) NEB (16:00)
[2018-01-24] MEDS: CALCIUM CHLORIDE INJ 1 GM in SODIUM CHLORIDE 0.9% INJ 100 ML IV PRN ×2 (16:05→22:55)
[2018-01-24 16:12] LABS: AUTOMATED NEUTROPHIL # 17.1 TH/MM3 (1.8-7.7); BASOPHIL % 0.2 % (0.0-2.0); EOSINOPHIL % 0.2 % (0.0-4.0); HEMATOCRIT 38.8 % (35.0-46.0); HEMOGLOBIN 12.8 GM/DL (11.6-15.3); LYMPH % 8.8 % (9.0-44.0); LYMPHOCYTE # 1.8 TH/MM3 (1.0-4.8); MEAN CELL VOLUME 86.9 FL (80.0-100.0); MEAN CORPUSCULAR HEMOGLOBIN 28.6 PG (27.0-34.0); MEAN CORPUSCULAR HGB CONC 32.9 % (32.0-36.0); MEAN PLATELET VOLUME 8.5 FL (7.0-11.0); MONOCYTE # 1.4 TH/MM3 (0-0.9); NEUT % 83.8 % (16.0-70.0); PLATELET COUNT 168 TH/MM3 (150-450); RED BLOOD COUNT 4.47 MIL/MM3 (4.00-5.30); RED CELL DISTRIBUTION WIDTH 14.3 % (11.6-17.2); WHITE BLOOD COUNT 20.4 TH/MM3 (4.0-11.0)
[2018-01-24] MEDS: RESP: ALBUTEROL 2.5 MG/IPRATROPIUM 0.5 MG NEB (SCH) NEB ×2 (16:27→20:25)
--- NOTE | 2018-01-24 16:33 | PD.OP ---
cc: Mahsa Hurley MD; King Wright DO Operative Report Date of Surgery: January 24, 2018 Preoperative Diagnosis: Postoperative Diagnosis: Procedure: 1. Median Sternotomy 2. Mitral Valve Repair 3. Tricuspid Valve Repair 4. Right Femoral Artery and Vein Cannulation for Cardiopulmonary bypass Surgeon: Mahsa Hurley Property Caretaker(s): Breanne Parr Operation and Findings: PREOPERATIVE DIAGNOSES 1. Severe Mitral Insufficiency 2. Severe Tricuspid Insufficiency 3. Severe Left Ventricular Dysfunction (EF 25-30%) 4. Severe COPD 5. Pulmonary Hypertension POSTOPERATIVE DIAGNOSES Same SURGICAL PROCEDURE 1. Median Sternotomy 2. Mitral Valve Repair 3. Tricuspid Valve Repair 4. Right Femoral Artery and Vein Cannulation for Cardiopulmonary bypass COMPUTER SYSTEMS SUPPORT SPECIALIST MYLES Delacruz ANESTHESIA General endotracheal. BUSINESS PROCESS SPECIALIST Avelino Lopez CRNA, Cristian Schumacher MD PREPARATION ChloraPrep. NEEDLE, SPONGE AND INSTRUMENT COUNT Correct. DRAINS Two 32-Bengali mediastinal tubes. COMPLICATIONS None. INDICATIONS The patient is an 77 -year-old with severe mitral regurgitation, tricuspid regurgitation and cardiomyopathy, presenting for surgical correction of the above pathology. DESCRIPTION OF PROCEDURE The patient was brought to the operating room and placed supine on the OR table. Following the induction of adequate general endotracheal anesthesia and placement of appropriate monitoring devices, the patient was then prepped and draped in the standard sterile fashion. Initial plans to proceed with a minimally invasive approach was abandoned due to the patient's severe COPD and inability to tolerate single lung ventilation. An incision was made over the right femoral vessels and the Common Femoral artery and vein dissected free. The patient was systemically heparinized and anticoagulation monitored by serial ACT measurements. A pursestring sutures of 5-0 Prolene was placed on the femoral artery and another one on the femoral vein. At this point, arterial and venous cannulae were introduced using the Seldinger technique with JACLYN guidance with confirmation of the venous cannula in the SVC, and attached to the arterial and venous components of the bypass circuit respectively. Median sternotomy was performed and the pericardium divided. The heart was exposed. Antegrade cardioplegia cannula was placed. The patient was placed on cardiopulmonary bypass and core cooling initiated to a temperature of 34 degrees centigrade. The crossclamp was applied and 1.6 L of antegrade cardioplegia solution ( Intermediate HTK) was given in addition to topical cooling with slushed saline. Upon achieving adequate diastolic arrest of the heart a right atriotomy was performed. Transeptal approach to the mitral valve was taken. The mitral valve was inspected and appeared to have a tethered posterior leaflet in the P3 segment and a cleft in the anterior leaflet in the A3 segment. Quadrangular resection of the tethered portion was performed and the leaflet reconstructed with interrupted 5-0 Prolene stitches. The anterior cleft was repaired with interrupted sutures of 5-0 Prolene. Horizontal mattress sutures of interrupted 2 -0 Ethibond were placed on the mitral annulus. After adequate sizing, a 28 mm Profile 3D Mitral annuloplasty ring was brought in the surgical field and the sutures passed through the skirt and the ring was situated and anchored with the Cor-Knot device. Analysis of the valve revealed a competent valve with no regurgitation. The interatrial septum closed closed in 2 layers. This was with 4 -0 Prolene; the 1st layer being horizontal mattress, the 2nd layer being running baseball stitch. The tricuspid valve was analyzed next. Horizontal mattress sutures of interrupted 2-0 Ethibond were placed on the tricuspid annulus care being taken to avoid placing sutures in the area of conduction on the septal leaflet annulus. After adequate sizing, a 28 mm Contour 3D Tricuspid annuloplasty ring was brought in the surgical field and the sutures passed through the skirt and the ring was situated and anchored with the Cor-Knot device. Analysis of the valve revealed a competent valve with no regurgitation. Gradual rewarming was initiated. The right atrium was similarly closed in two layers of 4-0 Prolene. The cross clamp was removed and upon achieving normothermic cardiac activity, patient was weaned from CPB with some difficulty using Epinephrine support. Transesophageal echocardiography revealed a trace to mild mitral regurgitation and a competent tricuspid valve with no evidence of mitral stenosis. Given her poorly functioning and dilated left ventricle, it was decided to leave the trace to mild MR alone. Protamine was given. Decannulation was performed and all sites were inspected for hemostasis. At this point the closure was undertaken. The pericardium was reapproximated in the midline. Two 32-Fr chest tubes were placed, and the sternum was reapproximated using stainless steel sternal wires. The musculo-fascial layer was then closed in 3 layers. The patient tolerated the procedure well and was transferred to open heart recovery in stable condition. Mahsa Hurley MD January 24, 2018 16:33
[2018-01-24 16:44] LABS: CREATININE 0.8 MG/DL (0.50-1.00)
[2018-01-24 16:45] LABS: TOTAL PROTEIN 5.2 GM/DL (6.4-8.2)
[2018-01-24 16:46] LABS: ALBUMIN 2.8 GM/DL (3.4-5.0); CALCIUM 7.4 MG/DL (8.5-10.1); CALCIUM-PROTEIN CORRECTED 8.5 MG/DL (8.5-10.1); MAGNESIUM 2.9 MG/DL (1.5-2.5)
[2018-01-24 16:47] LABS: BICARBONATE 24.8 MEQ/L (21.0-32.0); TOTAL BILIRUBIN ADULT 0.8 MG/DL (0.2-1.0)
[2018-01-24] MEDS: POTASSIUM CHLOR 20 MEQ PREMIX 100 ML IV PRN ×2 (17:52→20:01)
[2018-01-24 18:54] LABS: BILIRUBIN, URINE NEG (NEG); BLOOD, URINE MOD (NEG); GLUCOSE,URINE NEG (NEG); KETONE, URINE TRACE mg/dL (NEG); NITRITE,URINE NEG (NEG); PH, URINE 5.5 (5.0-8.5); SQUAMOUS EPITHELIAL CELL URINE <1 /hpf (0-5); URINE COLOR YELLOW (YELLW/STRAW); URINE LEUKOCYTE ESTERASE NEG (NEG)
[2018-01-24] MEDS: AMIODARONE 200 MG TAB PO SCH (22:00)
[2018-01-24] MEDS: SODIUM CHLORIDE 0.9% FLUSH 10 ML FLUSH IV FLUSH SCH (22:01)
[2018-01-24] MEDS: ALBUMIN 5% INJ 250 ML IV PRN (22:08)
[2018-01-24] MEDS: ceFAZolin 2 GM in NS 100 ML IV SCH (22:08)
[2018-01-25] VITALS (11 sets, daily range): BP systolic 92–110; BP diastolic 42–75; PULSE 86–118; RESP 18–22; TEMP 97.4–98.8; O2SAT 92–98
[2018-01-25] MEDS: KETOROLAC TROMETHAMINE 30 MG/ML (IVP) VIAL IV PUSH PRN ×2 (00:12→10:37)
[2018-01-25] MEDS: RESP: ALBUTEROL 2.5 MG/IPRATROPIUM 0.5 MG NEB (SCH) NEB ×4 (02:48→20:49)
[2018-01-25] MEDS: ALBUMIN 5% INJ 250 ML IV PRN (02:50)
[2018-01-25] MEDS: ACETAMINOPHEN 1000 MG/100 ML 100 ML IV SCH ×2 (04:13→10:10)
[2018-01-25] MEDS: ceFAZolin 2 GM in NS 100 ML IV SCH ×3 (04:13→20:55)
--- NOTE | 2018-01-25 04:29 | RADRPT ---
EXAM DATE/TIME: 01/25/2018 03:50 [facility] COMPARISON: CHEST SINGLE AP, January 24, 2018, 14:06. INDICATIONS : Post CABG, short of breath. MEDICAL HISTORY : Cardiovascular disease. SURGICAL HISTORY : CABG. ENCOUNTER: Subsequent ACUITY: 2 days PAIN SCORE: 0/10 LOCATION: Bilateral chest FINDINGS: Postoperative CABG. 2 central anterior chest tubes are present. Also previous mitral valve surgery. R ight central line in superior vena cava. Slight increase in basilar airspace disease and effusions si nce January 25 exam from earlier today. Endotracheal tube and nasogastric tube have been removed. CONCLUSION: 1. Removal of previous endotracheal tube and nasogastric tube. 2. Basilar airspace disease and effusions have increased slightly since earlier exam. Ishan Miller MD on January 25, 2018 at 4:24 Board Certified Radiologist. This report was verified electronically.
[2018-01-25] MEDS: EPINEPHrine 2 MG/D5W 250 ML IV PRN ×2 (04:40)
[2018-01-25 04:57] LABS: HEMATOCRIT 34.6 % (35.0-46.0); HEMOGLOBIN 11.4 GM/DL (11.6-15.3); LYMPH % 7.8 % (9.0-44.0); LYMPHOCYTE # 1.4 TH/MM3 (1.0-4.8); MEAN CELL VOLUME 85.7 FL (80.0-100.0); MEAN CORPUSCULAR HEMOGLOBIN 28.4 PG (27.0-34.0); MEAN CORPUSCULAR HGB CONC 33.1 % (32.0-36.0); MEAN PLATELET VOLUME 8.7 FL (7.0-11.0); MONO % 9.1 % (0.0-8.0); MONOCYTE # 1.6 TH/MM3 (0-0.9); NEUT % 83.1 % (16.0-70.0); PLATELET COUNT 159 TH/MM3 (150-450); RED BLOOD COUNT 4.03 MIL/MM3 (4.00-5.30); RED CELL DISTRIBUTION WIDTH 14.1 % (11.6-17.2); WHITE BLOOD COUNT 18.1 TH/MM3 (4.0-11.0)
[2018-01-25 05:25] LABS: ALBUMIN 3.3 GM/DL (3.4-5.0); ALT (GPT) 19 U/L (10-53); AST (GOT) 49 U/L (15-37); BICARBONATE 21.3 MEQ/L (21.0-32.0); BLOOD UREA NITROGEN 16 MG/DL (7-18); CALCIUM 8.3 MG/DL (8.5-10.1); CHLORIDE 110 MEQ/L (98-107); CREATININE 0.85 MG/DL (0.50-1.00); GLOMERULAR FILTRATION RATE 65 ML/MIN (>89); GLUCOSE,RANDOM 117 MG/DL (74-106); SODIUM (NA) 142 MEQ/L (136-145)
[2018-01-25 05:27] LABS: ALKALINE PHOSPHATASE 41 U/L (45-117); TOTAL PROTEIN 5.4 GM/DL (6.4-8.2)
[2018-01-25 05:37] LABS: TOTAL BILIRUBIN ADULT 0.7 MG/DL (0.2-1.0)
[2018-01-25] MEDS: PANTOPRAZOLE SOD 40 MG DELAYED RELEASE TAB PO SCH (06:00)
[2018-01-25] MEDS: ASPIRIN 81 MG CHEW TAB PO SCH (08:51)
[2018-01-25] MEDS: AMIODARONE 200 MG TAB PO SCH ×2 (08:51→20:55)
[2018-01-25] MEDS: SODIUM CHLORIDE 0.9% FLUSH 10 ML FLUSH IV FLUSH SCH ×2 (08:52→20:55)
[2018-01-25] MEDS: FLUTICASONE 100 MCG/VILANTEROL 25 MCG INHALER INH SCH (08:52)
[2018-01-25] MEDS: CLOPIDOGREL 75 MG TAB PO SCH (08:52)
[2018-01-25] MEDS ORDERED: BISACODYL 10 MG SUPP RECTAL PRN (09:00)
[2018-01-25] MEDS ORDERED: GLUCAGON 1 MG/ML VIAL OTHER PRN (09:00)
[2018-01-25] MEDS ORDERED: SOD PHOSPHATE/SOD BIPHOSPHATE (ADULT) ENEMA 133ML RECTAL PRN (09:00)
[2018-01-25] MEDS ORDERED: DEXTROSE 50% IN WATER 50 ML VIAL(D50) IV PUSH PRN (09:00)
--- NOTE | 2018-01-25 09:21 | PD.CAR.PN ---
CVT Progress Note Subjective/Hospital Course: A 77-year-old female patient of Dr. Narda Torres and Dr. Saldana , initially seen 01/17/18, who has had symptoms of shortness of breath and some lower extremity edema for the past month, easily fatigued, history of mitral regurgitation and tricuspid regurgitation, recently underwent a cardiology followup, which showed ejection fraction of 40%; however on catheterization the EF was more like 30%. The echo showed some global hypokinesis. The right ventricle was moderately dilated, left atrium moderately dilated. The aortic valve had a valve area of 2.7. The mitral valve was severe regurgitation with an eccentric jet. The tricuspid valve had severe regurgitation with RV pressure of 71 mmHg consistent with moderate pulmonary hypertension. She underwent cardiac catheterization on the , right and left heart catheterization, which showed some approximately 50% stenosis in the mid portion of the LAD. The circuit had some mild disease of 30%. RA pressures were 8, RV pressures 43/7, PA pressures are 45/25, a wedge pressure of 13, cardiac output of 5.4. We were consulted on 01/17 after JACLYN completed by Dr Wright for mitral valve and tricuspid valve repair/replacement. PAST MEDICAL HISTORY: Includes tricuspid regurgitation, pulmonary hypertension and mitral regurgitation. Diabetes mellitus, diet controlled. She has documented metformin, but does not take it. She checks her blood sugars. Hyperlipidemia, hypertension, left bundle branch block, history of PSVT , postural vertigo. 01/24 Pt electively admitted for surgery today surgery: 1. Median Sternotomy 2. Mitral Valve Repair 3. Tricuspid Valve Repair 4. Right Femoral Artery and Vein Cannulation for Cardiopulmonary bypass extubated after surgery crystalloid 2000cc, 850cc cell saver , 1700cc EBL 01/25 weaned off pressors, slightly tachycardic BP labile, will keep in CVICU today wean 02 as tolerated start coumadin when chest tubes out, goal 2-2.5 x 6 weeks pulm toileting Objective: GENERAL: A&O x 3 SKIN: Warm and dry. prevena dressing to chest HEAD: Normocephalic. EYES: No scleral icterus. No injection or drainage. NECK: Supple, trachea midline. No JVD or lymphadenopathy. CARDIOVASCULAR: Regular rate and rhythm without murmurs, gallops, or rubs. RESPIRATORY: Breath sounds equal bilaterally. No accessory muscle use. diminished in bases GASTROINTESTINAL: Abdomen soft, non-tender, nondistended. MUSCULOSKELETAL: No cyanosis, or edema. BACK: Nontender without obvious deformity. No CVA tenderness. Vital Signs Date Time Temp Pulse Resp B/P (MAP) Pulse Ox O2 Delivery O2 Flow Rate FiO2 01/25/18 08:46 96 Nasal Cannula 5.00 01/25/18 08:06 116 01/25/18 08:06 99 Nasal Cannula 5.00 01/25/18 07:33 97.8 118 22 93/75 (81) 98 108/75 (86) 01/25/18 07:29 118 108/75 01/25/18 07:28 22 01/25/18 04:40 106 98/44 01/25/18 04:00 95 Simple Mask 8.00 01/25/18 04:00 97.4 102 18 105/55 (72) 95 94/42 (59) 01/25/18 04:00 102 01/25/18 01:30 94 Simple Mask 10.00 01/25/18 00:00 86 01/25/18 00:00 98.8 86 18 110/62 (78) 92 110/43 (65) 01/25/18 00:00 92 Nasal Cannula 6.00 01/24/18 20:28 92 Nasal Cannula 6.00 01/24/18 20:00 94 Nasal Cannula 6.00 01/24/18 20:00 98 01/24/18 20:00 97.8 98 18 108/68 (81) 94 122/67 (85) 01/24/18 18:11 93 Nasal Cannula 6.00 01/24/18 18:05 92 Nasal Cannula 6 01/24/18 17:59 97.6 01/24/18 17:58 40 01/24/18 16:40 92 Mechanical Ventilator 60 01/24/18 16:39 60 01/24/18 16:38 101 01/24/18 16:37 14 01/24/18 16:27 94 60 01/24/18 16:15 14 01/24/18 15:08 97.6 108 14 108/59 (75) 92 01/24/18 14:51 97.6 01/24/18 14:48 97.6 105 14 113/61 (78) 92 01/24/18 14:26 90 01/24/18 14:23 100 01/24/18 14:22 95 Mechanical Ventilator 100 01/24/18 14:12 105 01/24/18 13:54 99 100 Labs: Laboratory Tests Test 01/25/18 04:15 White Blood Count 18.1 TH/MM3 (4.0-11.0) Red Blood Count 4.03 MIL/MM3 (4.00-5.30) Hemoglobin 11.4 GM/DL (11.6-15.3) Hematocrit 34.6 % (35.0-46.0) Mean Corpuscular Volume 85.7 FL (80.0-100.0) Mean Corpuscular Hemoglobin 28.4 PG (27.0-34.0) Mean Corpuscular Hemoglobin Concent 33.1 % (32.0-36.0) Red Cell Distribution Width 14.1 % (11.6-17.2) Platelet Count 159 TH/MM3 (150-450) Mean Platelet Volume 8.7 FL (7.0-11.0) Neutrophils (%) (Auto) 83.1 % (16.0-70.0) Lymphocytes (%) (Auto) 7.8 % (9.0-44.0) Monocytes (%) (Auto) 9.1 % (0.0-8.0) Eosinophils (%) (Auto) 0.0 % (0.0-4.0) Basophils (%) (Auto) 0.0 % (0.0-2.0) Neutrophils # (Auto) 15.0 TH/MM3 (1.8-7.7) Lymphocytes # (Auto) 1.4 TH/MM3 (1.0-4.8) Monocytes # (Auto) 1.6 TH/MM3 (0-0.9) Eosinophils # (Auto) 0.0 TH/MM3 (0-0.4) Basophils # (Auto) 0.0 TH/MM3 (0-0.2) CBC Comment DIFF FINAL Differential Comment Blood Urea Nitrogen 16 MG/DL (7-18) Creatinine 0.85 MG/DL (0.50-1.00) Random Glucose 117 MG/DL (74-106) Total Protein 5.4 GM/DL (6.4-8.2) Albumin 3.3 GM/DL (3.4-5.0) Calcium Level 8.3 MG/DL (8.5-10.1) Magnesium Level 2.0 MG/DL (1.5-2.5) Alkaline Phosphatase 41 U/L (45-117) Aspartate Amino Transf (AST/SGOT) 49 U/L (15-37) Alanine Aminotransferase (ALT/SGPT) 19 U/L (10-53) Total Bilirubin 0.7 MG/DL (0.2-1.0) Sodium Level 142 MEQ/L (136-145) Potassium Level 3.8 MEQ/L (3.5-5.1) Chloride Level 110 MEQ/L (98-107) Carbon Dioxide Level 21.3 MEQ/L (21.0-32.0) Anion Gap 11 MEQ/L (5-15) Estimat Glomerular Filtration Rate 65 ML/MIN (>89) Result Diagram: 01/25/1841401/25/18414 EKG: NSR LBBB unchanged (1) Diabetes mellitus Plan: weaned off insulin gtt restart metformin in am (2) Tricuspid regurgitation Plan: s/p repair medtronic ring (3) Mitral regurgitation Plan: s/p repair medtronic ring start coumadin when chest tubes out goal 2-2.5 x 6 weeks OOB ambulate leave in CVICU (4) COPD (chronic obstructive pulmonary disease) Plan: resume home inhalers pulm toileting Milla Cline January 25, 2018 09:21
[2018-01-25] MEDS: MAGNESIUM HYDROXIDE SUSP 30 ML CUP PO SCH (09:22)
[2018-01-25] MEDS: MULTIVITAMINS/MINERALS THERAPEUTIC TAB PO SCH (09:22)
[2018-01-25] MEDS: DOCUSATE SODIUM 100 MG CAP PO SCH ×2 (09:22→20:55)
[2018-01-25] MEDS: INSULIN ASPART SUPPLEMENTAL SCALE SQ SCH ×4 (10:00→22:00)
[2018-01-25] MEDS ORDERED: ONDANSETRON HCL 4 MG/2 ML VIAL ONE (10:07)
--- NOTE | 2018-01-25 10:32 | HHI.CCPN ---
Subjective Remarks/Hospital Course Patient is a 77-year-old female with a past medical history of hypertension, hyperlipidemia, vertigo, who underwent a cardiac catheterization by Dr. Wright on 01/14/2018 which showed severe mitral valve regurgitation, severe tricuspid regurgitation, moderate coronary artery disease and mild pulmonary hypertension. She underwent a transesophageal echocardiogram on 01/17/2018 which showed cardiomyopathy with ejection fraction of 25-30%, severe mitral and , tricuspid valve regurgitation. The patient was electively admitted earlier today and she underwent mitral and tricuspid valve repair by Dr. Hurley. She remained on mechanical ventilation postop. The patient received 2 liters of crystalloids in the OR and 850 mL of Cell Saver. Her urine output was 700 mL. When seen, the patient is on low-dose Diprivan infusion along with epinephrine , 3 mcg per minute, and insulin drip at 6 units an hour. A chest x-ray postop showed no evidence of any pneumothorax, mild airspace disease in the left lung base likely related to atelectasis. Critical Care Medicine was consulted for critical care management. Her current blood pressure is 118/62 on the arterial line with a pulse of 107, and saturation of 95%. 01/25 Patient s/p extubation last night on 5L oxygen. Afebrile. Objective Vital Signs Date Time Temp Pulse Resp B/P (MAP) Pulse Ox O2 Delivery O2 Flow Rate FiO2 01/25/18 08:46 96 Nasal Cannula 5.00 01/25/18 08:06 116 01/25/18 07:33 97.8 22 93/75 (81) 108/75 (86) 01/24/18 17:58 40 Intake and Output 01/25/18 01/25/18 01/26/18 08:00 16:00 00:00 Intake Total 1874 ml 104 ml Output Total 1040 ml Balance 834 ml 104 ml Result Diagram: 01/25/18 0415 01/25/18 0415 Other Results Laboratory Tests Test 01/24/18 15:32 01/24/18 18:06 01/25/18 04:15 White Blood Count 20.4 TH/MM3 18.1 TH/MM3 Red Blood Count 4.47 MIL/MM3 4.03 MIL/MM3 Hemoglobin 12.8 GM/DL 11.4 GM/DL Hematocrit 38.8 % 34.6 % Mean Corpuscular Volume 86.9 FL 85.7 FL Mean Corpuscular Hemoglobin 28.6 PG 28.4 PG Mean Corpuscular Hemoglobin Concent 32.9 % 33.1 % Red Cell Distribution Width 14.3 % 14.1 % Platelet Count 168 TH/MM3 159 TH/MM3 Mean Platelet Volume 8.5 FL 8.7 FL Neutrophils (%) (Auto) 83.8 % 83.1 % Lymphocytes (%) (Auto) 8.8 % 7.8 % Monocytes (%) (Auto) 7.0 % 9.1 % Eosinophils (%) (Auto) 0.2 % 0.0 % Basophils (%) (Auto) 0.2 % 0.0 % Neutrophils # (Auto) 17.1 TH/MM3 15.0 TH/MM3 Lymphocytes # (Auto) 1.8 TH/MM3 1.4 TH/MM3 Monocytes # (Auto) 1.4 TH/MM3 1.6 TH/MM3 Eosinophils # (Auto) 0.0 TH/MM3 0.0 TH/MM3 Basophils # (Auto) 0.0 TH/MM3 0.0 TH/MM3 CBC Comment DIFF FINAL DIFF FINAL Differential Comment Blood Urea Nitrogen 14 MG/DL 16 MG/DL Creatinine 0.80 MG/DL 0.85 MG/DL Random Glucose 120 MG/DL 117 MG/DL Total Protein 5.2 GM/DL 5.4 GM/DL Albumin 2.8 GM/DL 3.3 GM/DL Calcium Level 7.4 MG/DL 8.3 MG/DL Phosphorus Level 2.0 MG/DL Magnesium Level 2.9 MG/DL 2.0 MG/DL Alkaline Phosphatase 53 U/L 41 U/L Aspartate Amino Transf (AST/SGOT) 39 U/L 49 U/L Alanine Aminotransferase (ALT/SGPT) 22 U/L 19 U/L Total Bilirubin 0.8 MG/DL 0.7 MG/DL Sodium Level 144 MEQ/L 142 MEQ/L Potassium Level 4.0 MEQ/L 3.8 MEQ/L Chloride Level 111 MEQ/L 110 MEQ/L Carbon Dioxide Level 24.8 MEQ/L 21.3 MEQ/L Anion Gap 8 MEQ/L 11 MEQ/L Estimat Glomerular Filtration Rate 70 ML/MIN 65 ML/MIN Protein Corrected Calcium 8.5 MG/DL Urine Color YELLOW Urine Turbidity CLEAR Urine pH 5.5 Urine Specific [place] 1.034 Urine Protein NEG mg/dL Urine Glucose (UA) NEG mg/dL Urine Ketones TRACE mg/dL Urine Occult Blood MOD Urine Nitrite NEG Urine Bilirubin NEG Urine Urobilinogen LESS THAN 2.0 MG/DL Urine Leukocyte Esterase NEG Urine RBC 21 /hpf Urine WBC 1 /hpf Urine Squamous Epithelial Cells <1 /hpf Microscopic Urinalysis Comment CATH-CULT NOT IND Imaging Last Impressions Chest X-Ray 01/25/18 0500 Signed Impressions: Service Date/Time: Thursday, January 25, 2018 03:50 - CONCLUSION: 1. Removal of previous endotracheal tube and nasogastric tube. 2. Basilar airspace disease and effusions have increased slightly since earlier exam. Ishan Miller MD Objective Remarks GENERAL: Patient is 77 yo sitting up in chair in NAD SKIN: Warm and dry. HEAD: Normocephalic. EYES: No scleral icterus. No injection or drainage. NECK: Supple, trachea midline. No JVD or lymphadenopathy. CARDIOVASCULAR: Regular rate and rhythm without murmurs, gallops, or rubs. RESPIRATORY: Breath sounds equal bilaterally. No accessory muscle use. GASTROINTESTINAL: Abdomen soft, non-tender, nondistended. MUSCULOSKELETAL: No cyanosis, or edema. Neuro: Awake and alert. A/P Assessment and Plan 1. Status post mitral and tricuspid valve repair. 2. Resp Insuff- Extubated 01/24 3. Cardiomyopathy with EF 25-30%. 4. Status post a cardiac catheterization on 01/14/2018 showed moderate coronary artery disease with severe mitral regurgitation and tricuspid regurgitation. 5. Atelectasis. 6. History of hypertension. 7. Hyperlipidemia. 8. Diet-controlled diabetes mellitus. Plan Neuro: Awake and alert. Monitor neuro status Pulm: Continue with oxygen and maintain sats > 92%. Bronchodilators, incentive spirometry CV: Monitor HR and BP and maintain MAP> 65 mmHg. JACLYN showed an EF of 25-30%. Monitor chest tube drainage. Chest tube management per CTS On Aspirin 81 mg, Plavix 75 mg, Amiodarone 200 mg q.12h : Monitor renal function, I's and O's and electrolyte replacement per protocol. Diurese with Lasix 40mg x1 GI: on Protonix 40 mg daily for GI prophylaxis. On PO diet ID: Perioperative antibiotics per CT Surgery. On cefazolin. Monitor for signs of infections( fever and WBC) Check sputum cx Endo: SSI for glycemic control Heme: Monitor CBC. GI prophylaxis with Protonix and DVT prophylaxis with SCDs. Lines Right IJ CVP Will sign off Level 2 Julisa Martinez MD January 25, 2018 10:32
[2018-01-25] MEDS: ACETAMINOPHEN/HYDROcodone 325 MG/5 MG TAB PO PRN ×3 (10:42→20:56)
[2018-01-25] MEDS ORDERED: FUROSEMIDE 40 MG/4 ML VIAL IV PUSH ONE (11:00)
--- NOTE | 2018-01-25 15:17 | HHI.FF ---
Face to Face Verification Diagnosis: (1) Diabetes mellitus (2) Mitral regurgitation (3) Tricuspid regurgitation (4) COPD (chronic obstructive pulmonary disease) (5) S/P tricuspid valve repair (6) S/P mitral valve repair Home Health Nursing Order: Signs/symptoms of disease process Medication education-adverse effect Wound care and dressing changes Nursing assessment with vital signs Instructions: PREVENA Single Use Negative Wound Therapy System Caregiver Instruction Sheet 1. A Prevena dressing system was applied to the chest incision during surgery , to promote wound healing. It works via a suction device (negative pressure wound therapy) to remove low to moderate levels of exudate (drainage) and infectious materials. We recommend that the device stay in place for up to seven days, from day of surgery. 2. Day of Surgery___// Day of Removal ____/ 3. The dressing should only be removed by a health wound care coordinator. Please arrange removal of device to coincide with Home Health visit and or with Nursing staff at Rehab 4. If skin reddening or irritation of skin occurs, or excessive drainage, please notify the Cardiovascular Surgeons office at [phone]. 5. Light showering is permissible; however the pump should be disconnected and placed in safe location, where it will not get wet. The dressing should not be exposed to direct spray or submerged in water. No bath tub / shower only. Ensure the end of the tubing attached to the dressing is facing down so that water does not enter the top of the tube. 6. To remove Prevena dressing: press purple button to turn off device / remove the suction. Then disconnect the tubing from the pump. The fixation strips should be stretched away from the skin and the dressing lifted at one corner and peeled back until it has been fully removed. 7. After removal, it is ok to shower daily using liquid dial soap and clean wash cloth, rinse and pat dry, and leave incision open to air dry. For any concerns regarding Prevena dressing, and or wounds, please contact Stephanie Yen, patient navigator at [phone] or notify the Cardiovascular Surgeons office at [phone]. Heart and Vascular Surgery patients *Special attention to sternal dressing Mandatory frequency Assess and evaluation, 4 days in a row The next week 3X week 2 times a week for 4 weeks 1 time a week for 5 weeks Schedule Heart and Vascular patients for full 60 day certification period Initial visit Review Open Heart Surgery Discharge Instructions (Sternal precautions, Activity, Elastic hose, Incision care, Driving, Incentive spirometry, Smoking, Madeline, Work and other) Need Betadine to paint incision Medication reconciliation Importance of follow up care/ check on appointments Make calendar record temperature daily When to call [facility] at Home nurse, review instructions, phone list Incentive Spirometry, demonstration Visit 1- Begin discharge instruction for patient family and/ or caregiver using teach back method- Signs and symptoms of infection Disease characteristics Medicines and side effects Foods and nutrition/ appetite Infection control/ hand washing/ hygiene Visit 2- Continue teaching Discharge instructions- include additional information on smoking cessation , sternal dressing (sternal vac) Visit 3- Continue teaching- Cough and deep breathing, incision monitoring. Choose my plate Visit 4- Continue teaching- Discuss limitations Discuss how they are feeling Discuss progress toward goals Remaining visits- continue teaching and monitoring For any questions please call : Wednesday 8am-5pm Heart & Vascular Surgery Office ( Dr. Hurley & Dr. Downing), After Hours / Nights (5pm -8am) Weekends and Holidays Please call [facility] ([facility]) Charge Nurse Incentive spirometry Q1 hr x 10, while awake, also use acapella device hourly whole awake Sternal Breast Bone Precautions: NO pushing or pulling, ( pt must use sternal pillow to support chest with all activities and with coughing ( takes up to 3 months breast bone to heal ) All females to wear sternal bra , launder as needed Daily incision care: ok to shower daily, no tub bath. Wash all incisions with liquid dial soap, clean wash cloth to each site, rinse and pat dry. Observe for any signs of infection, such as drainage which is dark yellow, collazo, green or foul smelling. Immediately report to the surgeon any drainage from the chest incision, or legs, and for any abnormal drainage from the chest tube sites. Notify surgeon if any temp >101.5 degrees F. When specialty dressing removed/ or if you do not have one, continue to shower daily as above, then rinse and pat incision dry and paint with betadine daily x 5 days. Allow steri strips to fall off if you have any. Avoid lotions, creams, salves, oils, etc. for the first month Please see attached forms for additional instructions regarding post Open Heart specialty wound vacuum dressings. DON or Prevena , Dressing to be removed by Nursing staff on _01/31/18 please obtain PT/INR 2-3 days , results to Dr Hurley / Goal for Coumadin 2- 2.5 x 6 weeks , then Aspirin only ( prescription will be given) (Fax: ) (Tele: [phone]) , F/U appointment: as per DC instructions: PCP in 2 weeks, CV surgeon 2 weeks, Body Stylist 3-4 weeks For any questions regarding incisions/ dressing / meds / post op care or above Symptoms, Wednesday 8am-5pm Heart & Vascular Surgery Office ( Dr. Hurley & Dr. Downing), After Hours / Nights (5pm -8am) Weekends and Holidays Please call [facility] ([facility]) Charge Nurse I have seen patient Juana Alberto on 01/25/18. My clinical findings support the need for the requested home health care services because: Deconditioned w/ increased weakness I certify that my clinical findings support that this patient is homebound because: Post-op weakness Milla Cline January 25, 2018 15:17
--- NOTE | 2018-01-25 19:31 | EKG ---
Date Performed: 01/25/2018 Time Performed: 06:09:52 PTAGE: 77 years EKG: irregular superventricular tachycardia , most concistent with sinus tachycardia and PAC's p eriod Incomplete LBBB Cannot rule out septal infarct - age undetermined Possible left ventricular hyp ertrophy Inferior/lateral ST-T changes may be due to hypertrophy and/or ischemia Low QRS voltages in limb leads when compared to prior tracing, patient is now tachycardic .Clinical correlation requested in consideration for a repeat ekg as atrial fibrillation cannot be completely excluded. Abnormal ECG NO PREVIOUS TRACING DOCTOR: Caren Du Interpretating Date/Time 01/25/2018 19:29:41
[2018-01-25] MEDS: SENNOSIDES 8.6 MG TAB PO SCH (20:55)
[2018-01-26] VITALS (21 sets, daily range): BP systolic 100–123; BP diastolic 55–73; PULSE 67–117; RESP 16–20; TEMP 97.2–99.1; O2SAT 95–99
[2018-01-26] MEDS: KETOROLAC TROMETHAMINE 30 MG/ML (IVP) VIAL IV PUSH PRN ×2 (00:45→12:06)
[2018-01-26] MEDS: INSULIN ASPART SUPPLEMENTAL SCALE SQ SCH ×5 (02:00→20:54)
[2018-01-26] MEDS: ceFAZolin 2 GM in NS 100 ML IV SCH (04:00)
[2018-01-26 05:17] LABS: AUTOMATED NEUTROPHIL # 14.7 TH/MM3 (1.8-7.7); BASOPHIL % 0.2 % (0.0-2.0); EOSINOPHIL # 0.1 TH/MM3 (0-0.4); EOSINOPHIL % 0.5 % (0.0-4.0); HEMATOCRIT 33.6 % (35.0-46.0); HEMOGLOBIN 11.3 GM/DL (11.6-15.3); LYMPH % 12.4 % (9.0-44.0); LYMPHOCYTE # 2.3 TH/MM3 (1.0-4.8); MEAN CELL VOLUME 86.1 FL (80.0-100.0); MEAN CORPUSCULAR HEMOGLOBIN 28.9 PG (27.0-34.0); MEAN CORPUSCULAR HGB CONC 33.5 % (32.0-36.0); MEAN PLATELET VOLUME 8.6 FL (7.0-11.0); MONO % 5.9 % (0.0-8.0); MONOCYTE # 1.1 TH/MM3 (0-0.9); PLATELET COUNT 143 TH/MM3 (150-450); RED BLOOD COUNT 3.91 MIL/MM3 (4.00-5.30); RED CELL DISTRIBUTION WIDTH 14.7 % (11.6-17.2); WHITE BLOOD COUNT 18.1 TH/MM3 (4.0-11.0)
[2018-01-26 05:25] LABS: INTERNATIONAL NORMALIZED RATIO 1.1 RATIO
[2018-01-26] MEDS: ACETAMINOPHEN/HYDROcodone 325 MG/5 MG TAB PO PRN ×4 (05:29→23:40)
[2018-01-26] MEDS: PANTOPRAZOLE SOD 40 MG DELAYED RELEASE TAB PO SCH (05:30)
[2018-01-26 05:38] LABS: ALBUMIN 3.2 GM/DL (3.4-5.0); ALT (GPT) 18 U/L (10-53); AST (GOT) 44 U/L (15-37); BICARBONATE 26.5 MEQ/L (21.0-32.0); BLOOD UREA NITROGEN 24 MG/DL (7-18); CALCIUM 8.5 MG/DL (8.5-10.1); CHLORIDE 110 MEQ/L (98-107); GLOMERULAR FILTRATION RATE 61 ML/MIN (>89); GLUCOSE,RANDOM 111 MG/DL (74-106); MAGNESIUM 2.6 MG/DL (1.5-2.5); SODIUM (NA) 142 MEQ/L (136-145)
[2018-01-26 05:41] LABS: ALKALINE PHOSPHATASE 39 U/L (45-117); TOTAL BILIRUBIN ADULT 0.8 MG/DL (0.2-1.0); TOTAL PROTEIN 5.5 GM/DL (6.4-8.2)
[2018-01-26] MEDS: RESP: ALBUTEROL 2.5 MG/IPRATROPIUM 0.5 MG NEB (SCH) NEB ×3 (08:18→20:03)
[2018-01-26] MEDS ORDERED: AMIODARONE 200 MG TAB PO ONE (09:00)
[2018-01-26] MEDS ORDERED: METOPROLOL TARTRATE 25 MG TAB PO SCH (09:00)
[2018-01-26] MEDS: MULTIVITAMINS/MINERALS THERAPEUTIC TAB PO SCH (09:10)
[2018-01-26] MEDS: SODIUM CHLORIDE 0.9% FLUSH 10 ML FLUSH IV FLUSH SCH ×2 (09:10→20:48)
[2018-01-26] MEDS: ASPIRIN 81 MG CHEW TAB PO SCH (09:10)
[2018-01-26] MEDS: CLOPIDOGREL 75 MG TAB PO SCH (09:10)
[2018-01-26] MEDS: MAGNESIUM HYDROXIDE SUSP 30 ML CUP PO SCH (09:10)
[2018-01-26] MEDS: FLUTICASONE 100 MCG/VILANTEROL 25 MCG INHALER INH SCH (09:10)
[2018-01-26] MEDS: POLYETHYLENE GLYCOL 17 GM PKG PO SCH (09:10)
[2018-01-26] MEDS: DOCUSATE SODIUM 100 MG CAP PO SCH ×2 (09:10→20:48)
[2018-01-26] MEDS ORDERED: PILL SPLITTER OTHER PRN (09:30)
--- NOTE | 2018-01-26 10:05 | PD.CAR.PN ---
CVT Progress Note Subjective/Hospital Course: A 77-year-old female patient of Dr. Narda Torres and Dr. Saldana , initially seen 01/17/18, who has had symptoms of shortness of breath and some lower extremity edema for the past month, easily fatigued, history of mitral regurgitation and tricuspid regurgitation, recently underwent a cardiology followup, which showed ejection fraction of 40%; however on catheterization the EF was more like 30%. The echo showed some global hypokinesis. The right ventricle was moderately dilated, left atrium moderately dilated. The aortic valve had a valve area of 2.7. The mitral valve was severe regurgitation with an eccentric jet. The tricuspid valve had severe regurgitation with RV pressure of 71 mmHg consistent with moderate pulmonary hypertension. She underwent cardiac catheterization on the , right and left heart catheterization, which showed some approximately 50% stenosis in the mid portion of the LAD. The circuit had some mild disease of 30%. RA pressures were 8, RV pressures 43/7, PA pressures are 45/25, a wedge pressure of 13, cardiac output of 5.4. We were consulted on 01/17 after JACLYN completed by Dr Wright for mitral valve and tricuspid valve repair/replacement. PAST MEDICAL HISTORY: Includes tricuspid regurgitation, pulmonary hypertension and mitral regurgitation. Diabetes mellitus, diet controlled. She has documented metformin, but does not take it. She checks her blood sugars. Hyperlipidemia, hypertension, left bundle branch block, history of PSVT , postural vertigo. 01/24 Pt electively admitted for surgery today surgery: 1. Median Sternotomy 2. Mitral Valve Repair 3. Tricuspid Valve Repair 4. Right Femoral Artery and Vein Cannulation for Cardiopulmonary bypass extubated after surgery crystalloid 2000cc, 850cc cell saver , 1700cc EBL 01/25 weaned off pressors, slightly tachycardic BP labile, will keep in CVICU today wean 02 as tolerated start coumadin when chest tubes out, goal 2-2.5 x 6 weeks pulm toileting 01/26 chest tube drained 160cc/ 12 hrs / will leave in for now sinus tach this am rate 130, BP improved, add BB also increase po amiodarone low grade temp, poor cough effort / needs aggressive pulm toileting transfer to stepdown today Objective: GENERAL: A&O x 3 SKIN: Warm and dry. prevena dressing to chest HEAD: Normocephalic. EYES: No scleral icterus. No injection or drainage. NECK: Supple, trachea midline. No JVD or lymphadenopathy. CARDIOVASCULAR: Regular rate and rhythm, tachycardic without murmurs, gallops, or rubs. RESPIRATORY: Breath sounds equal bilaterally. No accessory muscle use. diminished in bases chest tubes in place, no air leak GASTROINTESTINAL: Abdomen soft, non-tender, nondistended. MUSCULOSKELETAL: No cyanosis, or edema. BACK: Nontender without obvious deformity. No CVA tenderness. Vital Signs Date Time Temp Pulse Resp B/P (MAP) Pulse Ox O2 Delivery O2 Flow Rate FiO2 01/26/18 08:34 97 Nasal Cannula 2.00 01/26/18 08:18 95 Nasal Cannula 3.00 01/26/18 06:29 14 01/26/18 04:00 92 01/26/18 04:00 98 Nasal Cannula 3.00 01/26/18 04:00 99.0 93 16 104/66 (79) 98 01/26/18 00:00 98.4 114 18 109/69 (82) 97 01/26/18 00:00 68 01/26/18 00:00 97 Nasal Cannula 3.00 01/25/18 20:50 97 Nasal Cannula 3.00 01/25/18 20:00 98 01/25/18 20:00 97 Nasal Cannula 3.00 01/25/18 20:00 98.2 99 18 103/67 (79) 97 01/25/18 16:11 96 Nasal Cannula 4.00 01/25/18 16:10 116 01/25/18 15:09 98.4 109 20 92/55 (67) 96 01/25/18 12:09 108 01/25/18 12:08 96 Nasal Cannula 4.00 01/25/18 11:39 20 01/25/18 11:02 98.2 102 20 99/55 (70) 94 Arterial Line 01/25/18 10:33 20 Labs: Laboratory Tests Test 01/26/18 04:45 White Blood Count 18.1 TH/MM3 (4.0-11.0) Red Blood Count 3.91 MIL/MM3 (4.00-5.30) Hemoglobin 11.3 GM/DL (11.6-15.3) Hematocrit 33.6 % (35.0-46.0) Mean Corpuscular Volume 86.1 FL (80.0-100.0) Mean Corpuscular Hemoglobin 28.9 PG (27.0-34.0) Mean Corpuscular Hemoglobin Concent 33.5 % (32.0-36.0) Red Cell Distribution Width 14.7 % (11.6-17.2) Platelet Count 143 TH/MM3 (150-450) Mean Platelet Volume 8.6 FL (7.0-11.0) Neutrophils (%) (Auto) 81.0 % (16.0-70.0) Lymphocytes (%) (Auto) 12.4 % (9.0-44.0) Monocytes (%) (Auto) 5.9 % (0.0-8.0) Eosinophils (%) (Auto) 0.5 % (0.0-4.0) Basophils (%) (Auto) 0.2 % (0.0-2.0) Neutrophils # (Auto) 14.7 TH/MM3 (1.8-7.7) Lymphocytes # (Auto) 2.3 TH/MM3 (1.0-4.8) Monocytes # (Auto) 1.1 TH/MM3 (0-0.9) Eosinophils # (Auto) 0.1 TH/MM3 (0-0.4) Basophils # (Auto) 0.0 TH/MM3 (0-0.2) CBC Comment DIFF FINAL Differential Comment Prothrombin Time 11.0 SEC (9.8-11.6) Prothromb Time International Ratio 1.1 RATIO Blood Urea Nitrogen 24 MG/DL (7-18) Creatinine 0.90 MG/DL (0.50-1.00) Random Glucose 111 MG/DL (74-106) Total Protein 5.5 GM/DL (6.4-8.2) Albumin 3.2 GM/DL (3.4-5.0) Calcium Level 8.5 MG/DL (8.5-10.1) Magnesium Level 2.6 MG/DL (1.5-2.5) Alkaline Phosphatase 39 U/L (45-117) Aspartate Amino Transf (AST/SGOT) 44 U/L (15-37) Alanine Aminotransferase (ALT/SGPT) 18 U/L (10-53) Total Bilirubin 0.8 MG/DL (0.2-1.0) Sodium Level 142 MEQ/L (136-145) Potassium Level 5.1 MEQ/L (3.5-5.1) Chloride Level 110 MEQ/L (98-107) Carbon Dioxide Level 26.5 MEQ/L (21.0-32.0) Anion Gap 6 MEQ/L (5-15) Estimat Glomerular Filtration Rate 61 ML/MIN (>89) Result Diagram: 01/26/1844401/26/18444 (1) Diabetes mellitus Plan: not eating well on insulin sliding scale restart metformin in am (2) Tricuspid regurgitation Plan: s/p repair medtronic ring (3) Mitral regurgitation Plan: s/p repair medtronic ring start coumadin when chest tubes out goal 2-2.5 x 6 weeks OOB ambulate transfer to stepdown tachycardic, increase amiodarone and add BB (4) COPD (chronic obstructive pulmonary disease) Plan: resume home inhalers pulm toileting Milla Cline January 26, 2018 10:05
[2018-01-26] MEDS ORDERED: AMIODARONE 200 MG TAB PO SCH (14:00)
[2018-01-26] MEDS: SENNOSIDES 8.6 MG TAB PO SCH (20:48)
[2018-01-26] MEDS: AMIODARONE 200 MG TAB PO SCH (20:48)
[2018-01-26] MEDS: METOPROLOL TARTRATE 25 MG TAB PO SCH (23:40)
[2018-01-27] VITALS (26 sets, daily range): BP systolic 91–108; BP diastolic 55–69; PULSE 75–108; RESP 16–18; TEMP 97.4–98.6; O2SAT 92–100
[2018-01-27] MEDS: ACETAMINOPHEN/HYDROcodone 325 MG/5 MG TAB PO PRN ×2 (04:17→20:38)
[2018-01-27 04:31] LABS: INTERNATIONAL NORMALIZED RATIO 1.1 RATIO; PROTHROMBIN TIME - PATIENT 10.8 SEC (9.8-11.6)
[2018-01-27] MEDS: PANTOPRAZOLE SOD 40 MG DELAYED RELEASE TAB PO SCH (05:49)
[2018-01-27] MEDS: RESP: ALBUTEROL 2.5 MG/IPRATROPIUM 0.5 MG NEB (SCH) NEB (07:41)
[2018-01-27] MEDS: INSULIN ASPART SUPPLEMENTAL SCALE SQ SCH ×4 (08:00→20:33)
[2018-01-27] MEDS: MAGNESIUM HYDROXIDE SUSP 30 ML CUP PO SCH (08:36)
[2018-01-27] MEDS: POLYETHYLENE GLYCOL 17 GM PKG PO SCH (08:36)
[2018-01-27] MEDS: DOCUSATE SODIUM 100 MG CAP PO SCH ×2 (08:37→20:37)
[2018-01-27] MEDS: METOPROLOL TARTRATE 25 MG TAB PO SCH ×2 (08:37→20:38)
[2018-01-27] MEDS: AMIODARONE 200 MG TAB PO SCH ×2 (08:37→20:38)
[2018-01-27] MEDS: CLOPIDOGREL 75 MG TAB PO SCH (08:37)
[2018-01-27] MEDS: ASPIRIN 81 MG CHEW TAB PO SCH (08:37)
[2018-01-27] MEDS: MULTIVITAMINS/MINERALS THERAPEUTIC TAB PO SCH (08:37)
[2018-01-27] MEDS: SODIUM CHLORIDE 0.9% FLUSH 10 ML FLUSH IV FLUSH SCH ×2 (08:38→20:41)
[2018-01-27] MEDS: FLUTICASONE 100 MCG/VILANTEROL 25 MCG INHALER INH SCH (08:38)
--- NOTE | 2018-01-27 10:42 | PD.CAR.PN ---
CVT Progress Note Subjective/Hospital Course: A 77-year-old female patient of Dr. Narda Torres and Dr. Saldana , initially seen 01/17/18, who has had symptoms of shortness of breath and some lower extremity edema for the past month, easily fatigued, history of mitral regurgitation and tricuspid regurgitation, recently underwent a cardiology followup, which showed ejection fraction of 40%; however on catheterization the EF was more like 30%. The echo showed some global hypokinesis. The right ventricle was moderately dilated, left atrium moderately dilated. The aortic valve had a valve area of 2.7. The mitral valve was severe regurgitation with an eccentric jet. The tricuspid valve had severe regurgitation with RV pressure of 71 mmHg consistent with moderate pulmonary hypertension. She underwent cardiac catheterization on the , right and left heart catheterization, which showed some approximately 50% stenosis in the mid portion of the LAD. The circuit had some mild disease of 30%. RA pressures were 8, RV pressures 43/7, PA pressures are 45/25, a wedge pressure of 13, cardiac output of 5.4. We were consulted on 01/17 after JACLYN completed by Dr Wright for mitral valve and tricuspid valve repair/replacement. PAST MEDICAL HISTORY: Includes tricuspid regurgitation, pulmonary hypertension and mitral regurgitation. Diabetes mellitus, diet controlled. She has documented metformin, but does not take it. She checks her blood sugars. Hyperlipidemia, hypertension, left bundle branch block, history of PSVT , postural vertigo. 01/24 Pt electively admitted for surgery today surgery: 1. Median Sternotomy 2. Mitral Valve Repair 3. Tricuspid Valve Repair 4. Right Femoral Artery and Vein Cannulation for Cardiopulmonary bypass extubated after surgery crystalloid 2000cc, 850cc cell saver , 1700cc EBL 01/25 weaned off pressors, slightly tachycardic BP labile, will keep in CVICU today wean 02 as tolerated start coumadin when chest tubes out, goal 2-2.5 x 6 weeks pulm toileting 01/26 chest tube drained 160cc/ 12 hrs / will leave in for now sinus tach this am rate 130, BP improved, add BB also increase po amiodarone low grade temp, poor cough effort / needs aggressive pulm toileting transfer to stepdown today 01/27 pt very weak, feels tired + fluid balance gentle diuresis on amiodarone and BB now on room air drained 100cc/ 12 hrs, then additional 250cc serous drainage this am will leave chest tube in for now Objective: Vital Signs Date Time Temp Pulse Resp B/P (MAP) Pulse Ox O2 Delivery O2 Flow Rate FiO2 01/27/18 08:15 97.5 84 18 108/69 (82) 92 01/27/18 08:15 92 Room Air 01/27/18 07:42 95 01/27/18 06:10 96 01/27/18 05:09 98 01/27/18 04:42 98 Room Air 01/27/18 04:41 77 01/27/18 04:40 98.6 77 104/69 (81) 98 01/27/18 03:00 98 01/27/18 02:00 98 01/27/18 01:00 106 01/27/18 00:00 108 01/27/18 00:00 98 Nasal Cannula 1.00 01/26/18 23:00 98.6 86 105/66 (79) 98 01/26/18 23:00 108 01/26/18 22:00 84 01/26/18 21:00 112 01/26/18 20:47 18 01/26/18 20:03 99 Nasal Cannula 2.00 01/26/18 20:00 97 Nasal Cannula 2.00 01/26/18 20:00 104 01/26/18 19:00 112 01/26/18 19:00 98.1 111 100/55 (70) 97 01/26/18 18:00 114 01/26/18 17:00 112 01/26/18 16:00 105 01/26/18 16:00 98 Nasal Cannula 3.00 01/26/18 15:00 98.5 117 19 115/71 (86) 98 01/26/18 15:00 114 01/26/18 14:00 116 01/26/18 13:07 18 01/26/18 13:00 67 01/26/18 12:35 97.7 110 19 114/60 (78) 99 01/26/18 12:35 99 Nasal Cannula 2.00 01/26/18 12:00 95 Nasal Cannula 3.00 01/26/18 12:00 111 01/26/18 11:00 97.2 111 16 123/73 (90) 95 Labs: Laboratory Tests Test 01/27/18 03:50 Prothrombin Time 10.8 SEC (9.8-11.6) Prothromb Time International Ratio 1.1 RATIO Result Diagram: 01/26/1844401/26/18444 Telemetry: NSR LBBB (1) Diabetes mellitus Plan: not eating well on insulin sliding scale restart metformin when sugars stabilized / may need to continue to hold (2) Tricuspid regurgitation Plan: s/p repair medtronic ring (3) Mitral regurgitation Plan: s/p repair medtronic ring start coumadin when chest tubes out goal 2-2.5 x 6 weeks OOB ambulate transfer to stepdown amiodarone and add BB gentle diuresis CM to eval for rehab (4) COPD (chronic obstructive pulmonary disease) Plan: resume home inhalers pulm Milla Pearson January 27, 2018 10:42
[2018-01-27] MEDS ORDERED: FUROSEMIDE 20 MG/2 ML VIAL IV PUSH ONE (10:45)
[2018-01-27] MEDS: SENNOSIDES 8.6 MG TAB PO SCH (20:37)
[2018-01-28] VITALS (22 sets, daily range): BP systolic 93–107; BP diastolic 51–64; PULSE 65–108; RESP 16–18; TEMP 97.5–98.5; O2SAT 93–98
[2018-01-28] MEDS: ONDANSETRON ODT 4 MG TAB PO PRN (00:33)
[2018-01-28] MEDS: ACETAMINOPHEN/HYDROcodone 325 MG/5 MG TAB PO PRN ×4 (05:03→20:23)
[2018-01-28] MEDS: PANTOPRAZOLE SOD 40 MG DELAYED RELEASE TAB PO SCH (05:03)
[2018-01-28 05:22] LABS: INTERNATIONAL NORMALIZED RATIO 1.1 RATIO; PROTHROMBIN TIME - PATIENT 10.7 SEC (9.8-11.6)
[2018-01-28] MEDS: INSULIN ASPART SUPPLEMENTAL SCALE SQ SCH ×4 (08:00→20:36)
[2018-01-28] MEDS: ASPIRIN 81 MG CHEW TAB PO SCH (08:25)
[2018-01-28] MEDS: DOCUSATE SODIUM 100 MG CAP PO SCH ×2 (08:25→20:31)
[2018-01-28] MEDS: MULTIVITAMINS/MINERALS THERAPEUTIC TAB PO SCH (08:25)
[2018-01-28] MEDS: METOPROLOL TARTRATE 25 MG TAB PO SCH ×2 (08:26→20:35)
[2018-01-28] MEDS: MAGNESIUM HYDROXIDE SUSP 30 ML CUP PO SCH (08:26)
[2018-01-28] MEDS: POLYETHYLENE GLYCOL 17 GM PKG PO SCH (08:26)
[2018-01-28] MEDS: CLOPIDOGREL 75 MG TAB PO SCH (08:26)
[2018-01-28] MEDS: FLUTICASONE 100 MCG/VILANTEROL 25 MCG INHALER INH SCH (08:26)
[2018-01-28] MEDS: SODIUM CHLORIDE 0.9% FLUSH 10 ML FLUSH IV FLUSH SCH ×2 (08:26→20:35)
[2018-01-28] MEDS: AMIODARONE 200 MG TAB PO SCH ×2 (08:26→20:31)
[2018-01-28] MEDS ORDERED: FUROSEMIDE 20 MG/2 ML VIAL IV PUSH ONE (09:30)
[2018-01-28] MEDS ORDERED: COUM5TAB PO (14:20)
[2018-01-28] MEDS ORDERED: METO25TA3 PO (14:20)
[2018-01-28] MEDS ORDERED: THERM PO (14:20)
[2018-01-28] MEDS ORDERED: HYDR-3516 PO (14:20)
[2018-01-28] MEDS ORDERED: HYDR12.57 PO (14:20)
[2018-01-28] MEDS ORDERED: AMIO200T PO (14:20)
[2018-01-28] MEDS ORDERED: DOCU1CAP39 PO (14:20)
[2018-01-28] MEDS: WARFARIN SOD 5 MG TAB PO SCH (15:36)
--- NOTE | 2018-01-28 15:43 | PD.CAR.PN ---
CVT Progress Note Subjective/Hospital Course: A 77-year-old female patient of Dr. Narda Torres and Dr. Saldana , initially seen 01/17/18, who has had symptoms of shortness of breath and some lower extremity edema for the past month, easily fatigued, history of mitral regurgitation and tricuspid regurgitation, recently underwent a cardiology followup, which showed ejection fraction of 40%; however on catheterization the EF was more like 30%. The echo showed some global hypokinesis. The right ventricle was moderately dilated, left atrium moderately dilated. The aortic valve had a valve area of 2.7. The mitral valve was severe regurgitation with an eccentric jet. The tricuspid valve had severe regurgitation with RV pressure of 71 mmHg consistent with moderate pulmonary hypertension. She underwent cardiac catheterization on the , right and left heart catheterization, which showed some approximately 50% stenosis in the mid portion of the LAD. The circuit had some mild disease of 30%. RA pressures were 8, RV pressures 43/7, PA pressures are 45/25, a wedge pressure of 13, cardiac output of 5.4. We were consulted on 01/17 after JACLYN completed by Dr Wright for mitral valve and tricuspid valve repair/replacement. PAST MEDICAL HISTORY: Includes tricuspid regurgitation, pulmonary hypertension and mitral regurgitation. Diabetes mellitus, diet controlled. She has documented metformin, but does not take it. She checks her blood sugars. Hyperlipidemia, hypertension, left bundle branch block, history of PSVT , postural vertigo. 01/24 Pt electively admitted for surgery today surgery: 1. Median Sternotomy 2. Mitral Valve Repair 3. Tricuspid Valve Repair 4. Right Femoral Artery and Vein Cannulation for Cardiopulmonary bypass extubated after surgery crystalloid 2000cc, 850cc cell saver , 1700cc EBL 01/25 weaned off pressors, slightly tachycardic BP labile, will keep in CVICU today wean 02 as tolerated start coumadin when chest tubes out, goal 2-2.5 x 6 weeks pulm toileting 01/26 chest tube drained 160cc/ 12 hrs / will leave in for now sinus tach this am rate 130, BP improved, add BB also increase po amiodarone low grade temp, poor cough effort / needs aggressive pulm toileting transfer to stepdown today 01/27 pt very weak, feels tired + fluid balance gentle diuresis on amiodarone and BB now on room air drained 100cc/ 12 hrs, then additional 250cc serous drainage this am will leave chest tube in for now 01/28 chest tube dc without difficultly on room air feels better, poor appetite eval for discharge to rehab tomorrow start low dose HCTZ, BP too labile to start JENNIE/ EF 25% Objective: GENERAL: A&O x 3 SKIN: Warm and dry. prevena dressing to chest HEAD: Normocephalic. EYES: No scleral icterus. No injection or drainage. NECK: Supple, trachea midline. No JVD or lymphadenopathy. CARDIOVASCULAR: Regular rate and rhythm without murmurs, gallops, or rubs. RESPIRATORY: Breath sounds equal bilaterally. No accessory muscle use. diminished in bases GASTROINTESTINAL: Abdomen soft, non-tender, nondistended. MUSCULOSKELETAL: No cyanosis, or edema. BACK: Nontender without obvious deformity. No CVA tenderness. Vital Signs Date Time Temp Pulse Resp B/P (MAP) Pulse Ox O2 Delivery O2 Flow Rate FiO2 01/28/18 15:15 97.5 77 18 98/57 (71) 95 01/28/18 15:15 95 Room Air 01/28/18 14:00 66 01/28/18 13:00 68 01/28/18 12:01 82 01/28/18 11:10 98.5 72 18 99/64 (76) 94 01/28/18 11:10 94 Room Air 01/28/18 11:00 77 01/28/18 10:00 70 01/28/18 09:00 108 01/28/18 08:15 94 Room Air 01/28/18 08:15 98.4 89 18 107/64 (78) 94 01/28/18 08:00 92 01/28/18 07:01 65 01/28/18 03:00 65 01/28/18 03:00 98 Nasal Cannula 2.00 01/28/18 03:00 98.4 93 16 99/62 (74) 98 01/27/18 23:00 98.6 88 16 93/61 (72) 100 01/27/18 23:00 75 01/27/18 23:00 100 Nasal Cannula 2.00 01/27/18 19:00 98.6 77 16 91/57 (68) 98 01/27/18 19:00 98 01/27/18 19:00 98 Nasal Cannula 2.00 01/27/18 18:01 80 01/27/18 17:01 82 01/27/18 16:01 80 Labs: Laboratory Tests Test 01/28/18 04:38 Prothrombin Time 10.7 SEC (9.8-11.6) Prothromb Time International Ratio 1.1 RATIO Result Diagram: 01/26/1844401/26/18444 (1) Diabetes mellitus Plan: not eating well on insulin sliding scale restart metformin when sugars stabilized / may need to continue to hold (2) Tricuspid regurgitation Plan: s/p repair medtronic ring (3) Mitral regurgitation Plan: s/p repair medtronic ring start coumadin when chest tubes out goal 2-2.5 x 6 weeks OOB ambulate transfer to stepdown amiodarone and add BB gentle diuresis CM to eval for rehab (4) COPD (chronic obstructive pulmonary disease) Plan: resume home inhalers pulm toileting (5) Cardiomyopathy Plan: on BB HCTZ, will not tolerate JENNIE at this time Milla Cline January 28, 2018 15:43
--- NOTE | 2018-01-28 15:53 | HHI.DS ---
Discharge Summary Admission Date January 24, 2018 at 05:28 Discharge Date: January 29, 2018 Admitting Diagnosis 1. Severe Mitral Insufficiency 2. Severe Tricuspid Insufficiency 3. Severe Left Ventricular Dysfunction (EF 25-30%) 4. Severe COPD 5. Pulmonary Hypertension (1) Diabetes mellitus Diagnosis: Principal ICD Codes: E11.9 - Type 2 diabetes mellitus without complications (2) Tricuspid regurgitation Diagnosis: Principal ICD Codes: I07.1 - Rheumatic tricuspid insufficiency (3) Mitral regurgitation Diagnosis: Principal ICD Codes: I34.0 - Nonrheumatic mitral (valve) insufficiency (4) COPD (chronic obstructive pulmonary disease) Diagnosis: Principal ICD Codes: J44.9 - Chronic obstructive pulmonary disease, unspecified (5) Cardiomyopathy Diagnosis: Principal ICD Codes: I42.9 - Cardiomyopathy, unspecified (6) S/P mitral valve repair Diagnosis: Secondary ICD Codes: Z98.890 - Other specified postprocedural states (7) S/P tricuspid valve repair Diagnosis: Secondary ICD Codes: Z98.890 - Other specified postprocedural states Procedures 1. Median Sternotomy 01/24 2. Mitral Valve Repair 3. Tricuspid Valve Repair 4. Right Femoral Artery and Vein Cannulation for Cardiopulmonary bypass CBC/BMP: 01/26/18 0445 01/26/18 0445 Significant Findings Laboratory Tests Test 01/26/18 04:45 01/27/18 03:50 01/28/18 04:38 White Blood Count 18.1 TH/MM3 (4.0-11.0) Red Blood Count 3.91 MIL/MM3 (4.00-5.30) Hemoglobin 11.3 GM/DL (11.6-15.3) Hematocrit 33.6 % (35.0-46.0) Platelet Count 143 TH/MM3 (150-450) Neutrophils (%) (Auto) 81.0 % (16.0-70.0) Neutrophils # (Auto) 14.7 TH/MM3 (1.8-7.7) Monocytes # (Auto) 1.1 TH/MM3 (0-0.9) Blood Urea Nitrogen 24 MG/DL (7-18) Random Glucose 111 MG/DL (74-106) Total Protein 5.5 GM/DL (6.4-8.2) Albumin 3.2 GM/DL (3.4-5.0) Magnesium Level 2.6 MG/DL (1.5-2.5) Alkaline Phosphatase 39 U/L (45-117) Aspartate Amino Transf (AST/SGOT) 44 U/L (15-37) Chloride Level 110 MEQ/L (98-107) Estimat Glomerular Filtration Rate 61 ML/MIN (>89) Imaging Last Impressions Chest X-Ray 01/25/18 0500 Signed Impressions: Service Date/Time: Thursday, January 25, 2018 03:50 - CONCLUSION: 1. Removal of previous endotracheal tube and nasogastric tube. 2. Basilar airspace disease and effusions have increased slightly since earlier exam. Ishan Miller MD PE at Discharge GENERAL: A&O x 3 SKIN: Warm and dry. prevena dressing to chest HEAD: Normocephalic. EYES: No scleral icterus. No injection or drainage. NECK: Supple, trachea midline. No JVD or lymphadenopathy. CARDIOVASCULAR: Regular rate and rhythm without murmurs, gallops, or rubs. RESPIRATORY: Breath sounds equal bilaterally. No accessory muscle use. GASTROINTESTINAL: Abdomen soft, non-tender, nondistended. MUSCULOSKELETAL: No cyanosis, or edema. BACK: Nontender without obvious deformity. No CVA tenderness. Hospital Course 01/24 Pt electively admitted for surgery today surgery: 1. Median Sternotomy 2. Mitral Valve Repair 3. Tricuspid Valve Repair 4. Right Femoral Artery and Vein Cannulation for Cardiopulmonary bypass extubated after surgery crystalloid 2000cc, 850cc cell saver , 1700cc EBL 01/25 weaned off pressors, slightly tachycardic BP labile, will keep in CVICU today wean 02 as tolerated start coumadin when chest tubes out, goal 2-2.5 x 6 weeks pulm toileting 01/26 chest tube drained 160cc/ 12 hrs / will leave in for now sinus tach this am rate 130, BP improved, add BB also increase po amiodarone low grade temp, poor cough effort / needs aggressive pulm toileting transfer to stepdown today 01/27 pt very weak, feels tired + fluid balance gentle diuresis on amiodarone and BB now on room air drained 100cc/ 12 hrs, then additional 250cc serous drainage this am will leave chest tube in for now 01/28 started on coumadin, goal 2-2.5 chest tube removed without difficulty on room air unable to start JENNIE at this time,. 2/2 labile BP Pt Condition on Discharge: Good Discharge Disposition: Discharge to SNF Discharge Instructions DIET: Follow Instructions for: Heart Healthy Diet, Coumadin (Warfarin) Diet Activities you can perform: Full Weight Bearing, Shower Only-No Bath Activities to avoid: Weight Bearing, Prolonged Standing, Strenuous Activity, Driving Additional Activity Instructio: no lifting > 8 lbs or gallon of milk Follow up Referrals: Cardiology - 4 Weeks with Troy Saldana MD PCP Follow-up - 2 Weeks [place] Narda [place] [address] Surgical - 2 Weeks with Mahsa Hurley MD New Orders: BASIC METABOLIC PROF - 1 Week PT/INR - 2-3 Days New Medications: Amiodarone (Amiodarone) 200 Mg Tab 200 MG PO Q12HR for heart rhythm, #28 TAB 0 Refills Docusate Sodium (Dok) 100 Mg Cap 100 MG PO BID for Constipation, #60 CAP 0 Refills Hydrochlorothiazide (Hydrochlorothiazide) 12.5 Mg Cap 12.5 MG PO DAILY for CHF, #30 CAP 2 Refills Hydrocodone/Acetaminophen (Hydrocodone-Acetamin 5-325 mg) 5 Mg-325 Mg Tablet 1 TAB PO Q4H PRN for PAIN SCALE 1 TO 5, #30 TAB 0 Refills Metoprolol Tartrate (Metoprolol Tartrate) 25 Mg Tab 25 MG PO Q12HR for Blood Pressure Management, #60 TAB 2 Refills Multiple Vitamins W/ Minerals (Thera M Plus) 1 Tab 1 TAB PO DAILY for multi vitamin, #30 TAB 2 Refills Warfarin (Coumadin) 5 Mg Tab 5 MG PO DAILY@1600 for Blood Clot Prevention, #30 TAB 1 Refill goal INR 2-2.5 x 6 weeks hold INR> 3.0 Continued Medications: Aspirin (Aspirin Childrens) 81 Mg Chew 81 MG CHEW DAILY, TAB Fluticasone Nasal [place] (Flonase Nasal [place]) 50 Mcg/Act [place] 50 MCG EACH NARE BID for Allergies, #1 BOTTLE 0 Refills Fluticasone-Vilanterol Inh (Breo Ellipta Inh) 100-25 Mcg/Act Inh 1 PUFF INH DAILY, #1 INHALER 0 Refills Use daily at the same time. Discontinued Medications: Furosemide (Lasix) 20 Mg Tab 20 MG PO DAILY, #30 TAB 0 Refills Milla Cline [facility] January 28, 2018 15:53
[2018-01-28] MEDS: SENNOSIDES 8.6 MG TAB PO SCH (20:31)
[2018-01-29] VITALS (23 sets, daily range): BP systolic 91–102; BP diastolic 54–69; PULSE 68–89; RESP 16–18; TEMP 97.7–98.5; O2SAT 92–95
[2018-01-29] MEDS: ACETAMINOPHEN/HYDROcodone 325 MG/5 MG TAB PO PRN ×4 (00:38→21:00)
[2018-01-29 04:47] LABS: INTERNATIONAL NORMALIZED RATIO 1.2 RATIO; PROTHROMBIN TIME - PATIENT 12.2 SEC (9.8-11.6)
[2018-01-29 04:51] LABS: BICARBONATE 26.8 MEQ/L (21.0-32.0); CALCIUM 7.9 MG/DL (8.5-10.1); CREATININE 0.66 MG/DL (0.50-1.00); MAGNESIUM 2.3 MG/DL (1.5-2.5)
--- NOTE | 2018-01-29 05:05 | RADRPT ---
EXAM DATE/TIME: 01/29/2018 04:00 [facility] COMPARISON: CHEST SINGLE AP, January 25, 2018, 3:50. INDICATIONS : Shortness of breath, possible pulmonary disease. MEDICAL HISTORY : Cardiovascular disease. SURGICAL HISTORY : CABG. ENCOUNTER: Subsequent ACUITY: 4 - 6 days PAIN SCORE: 0/10 LOCATION: Bilateral chest FINDINGS: A single view of the chest demonstrates the lungs to be symmetrically aerated without evidence of mas s, infiltrate or effusion. The cardiomediastinal contours are unremarkable. Postoperative median rozina rnotomy and mitral valve replacement. Removal of previous chest tubes and right central line. Osseou s structures are intact. CONCLUSION: 1. Cardiomegaly with basilar airspace disease and small effusions similar to January 25. Removal of previ ous central chest tubes and right central line. Ishan Miller MD on January 29, 2018 at 5:03 Board Certified Radiologist. This report was verified electronically.
[2018-01-29] MEDS: PANTOPRAZOLE SOD 40 MG DELAYED RELEASE TAB PO SCH (06:28)
[2018-01-29] MEDS: INSULIN ASPART SUPPLEMENTAL SCALE SQ SCH ×4 (08:00→21:00)
[2018-01-29] MEDS: ONDANSETRON ODT 4 MG TAB PO PRN (08:08)
[2018-01-29] MEDS: SODIUM CHLORIDE 0.9% FLUSH 10 ML FLUSH IV FLUSH SCH ×2 (09:00→21:00)
[2018-01-29] MEDS: POLYETHYLENE GLYCOL 17 GM PKG PO SCH (09:09)
[2018-01-29] MEDS: MULTIVITAMINS/MINERALS THERAPEUTIC TAB PO SCH (09:09)
[2018-01-29] MEDS: HYDROCHLOROTHIAZIDE 12.5 MG CAP PO SCH (09:09)
[2018-01-29] MEDS: MAGNESIUM HYDROXIDE SUSP 30 ML CUP PO SCH (09:09)
[2018-01-29] MEDS: ASPIRIN 81 MG CHEW TAB PO SCH (09:09)
[2018-01-29] MEDS: METOPROLOL TARTRATE 25 MG TAB PO SCH ×2 (09:09→21:00)
[2018-01-29] MEDS: DOCUSATE SODIUM 100 MG CAP PO SCH ×2 (09:09→21:00)
[2018-01-29] MEDS: AMIODARONE 200 MG TAB PO SCH ×2 (09:10→21:00)
[2018-01-29] MEDS: FLUTICASONE 100 MCG/VILANTEROL 25 MCG INHALER INH SCH (09:11)
[2018-01-29] MEDS: WARFARIN SOD 5 MG TAB PO SCH (15:03)
[2018-01-29] MEDS: SENNOSIDES 8.6 MG TAB PO SCH (21:00)
[2018-01-30] VITALS (25 sets, daily range): BP systolic 104–126; BP diastolic 61–73; PULSE 67–95; RESP 18; TEMP 97.7–98.2; O2SAT 92–97
[2018-01-30] MEDS: ACETAMINOPHEN/HYDROcodone 325 MG/5 MG TAB PO PRN ×3 (04:10→20:36)
[2018-01-30] MEDS: PANTOPRAZOLE SOD 40 MG DELAYED RELEASE TAB PO SCH (06:02)
[2018-01-30 06:38] LABS: INTERNATIONAL NORMALIZED RATIO 2.5 RATIO; PROTHROMBIN TIME - PATIENT 25.2 SEC (9.8-11.6)
[2018-01-30] MEDS: INSULIN ASPART SUPPLEMENTAL SCALE SQ SCH ×4 (07:49→20:43)
[2018-01-30] MEDS: MAGNESIUM HYDROXIDE SUSP 30 ML CUP PO SCH (08:34)
[2018-01-30] MEDS: HYDROCHLOROTHIAZIDE 12.5 MG CAP PO SCH (08:35)
[2018-01-30] MEDS: MULTIVITAMINS/MINERALS THERAPEUTIC TAB PO SCH (08:35)
[2018-01-30] MEDS: POLYETHYLENE GLYCOL 17 GM PKG PO SCH (08:35)
[2018-01-30] MEDS: DOCUSATE SODIUM 100 MG CAP PO SCH ×2 (08:35→20:42)
[2018-01-30] MEDS: AMIODARONE 200 MG TAB PO SCH ×2 (08:36→20:35)
[2018-01-30] MEDS: ASPIRIN 81 MG CHEW TAB PO SCH (08:37)
[2018-01-30] MEDS: METOPROLOL TARTRATE 25 MG TAB PO SCH ×2 (08:37→20:36)
[2018-01-30] MEDS: SODIUM CHLORIDE 0.9% FLUSH 10 ML FLUSH IV FLUSH SCH ×2 (09:00→20:36)
[2018-01-30] MEDS: FLUTICASONE 100 MCG/VILANTEROL 25 MCG INHALER INH SCH (09:00)
[2018-01-30] MEDS: WARFARIN SOD 5 MG TAB PO SCH (16:00)
[2018-01-30] MEDS: SENNOSIDES 8.6 MG TAB PO SCH (20:42)
[2018-01-31] VITALS (24 sets, daily range): BP systolic 100–117; BP diastolic 58–65; PULSE 66–99; RESP 17–20; TEMP 97.5–99.1; O2SAT 92–95
[2018-01-31] MEDS: PANTOPRAZOLE SOD 40 MG DELAYED RELEASE TAB PO SCH (06:22)
[2018-01-31] MEDS: INSULIN ASPART SUPPLEMENTAL SCALE SQ SCH ×4 (08:00→20:31)
[2018-01-31] MEDS: MULTIVITAMINS/MINERALS THERAPEUTIC TAB PO SCH (08:55)
[2018-01-31] MEDS: ASPIRIN 81 MG CHEW TAB PO SCH (08:55)
[2018-01-31] MEDS: HYDROCHLOROTHIAZIDE 12.5 MG CAP PO SCH (08:56)
[2018-01-31] MEDS: METOPROLOL TARTRATE 25 MG TAB PO SCH ×2 (08:56→20:26)
[2018-01-31] MEDS: AMIODARONE 200 MG TAB PO SCH ×2 (08:56→20:25)
[2018-01-31] MEDS: POLYETHYLENE GLYCOL 17 GM PKG PO SCH (08:57)
[2018-01-31] MEDS: FLUTICASONE 100 MCG/VILANTEROL 25 MCG INHALER INH SCH (08:57)
[2018-01-31] MEDS: MAGNESIUM HYDROXIDE SUSP 30 ML CUP PO SCH (08:57)
[2018-01-31] MEDS: DOCUSATE SODIUM 100 MG CAP PO SCH ×2 (08:57→20:25)
[2018-01-31] MEDS: SODIUM CHLORIDE 0.9% FLUSH 10 ML FLUSH IV FLUSH SCH ×2 (09:00→20:26)
[2018-01-31] MEDS ORDERED: TRAM50TA PO (09:28)
[2018-01-31 11:18] LABS: HEMATOCRIT 38.7 % (35.0-46.0); HEMOGLOBIN 12.8 GM/DL (11.6-15.3); MEAN CELL VOLUME 86.2 FL (80.0-100.0); MEAN CORPUSCULAR HEMOGLOBIN 28.6 PG (27.0-34.0); MEAN CORPUSCULAR HGB CONC 33.2 % (32.0-36.0); MEAN PLATELET VOLUME 7.9 FL (7.0-11.0); PLATELET COUNT 339 TH/MM3 (150-450); RED BLOOD COUNT 4.49 MIL/MM3 (4.00-5.30); RED CELL DISTRIBUTION WIDTH 14.4 % (11.6-17.2); WHITE BLOOD COUNT 12.1 TH/MM3 (4.0-11.0)
[2018-01-31 11:25] LABS: INTERNATIONAL NORMALIZED RATIO 3.3 RATIO
--- NOTE | 2018-01-31 11:39 | PD.CAR.PN ---
CVT Progress Note CVT: POD #: 7 Subjective/Hospital Course: A 77-year-old female patient of Dr. Narda Torres and Dr. Saldana , initially seen 01/17/18, who has had symptoms of shortness of breath and some lower extremity edema for the past month, easily fatigued, history of mitral regurgitation and tricuspid regurgitation, recently underwent a cardiology followup, which showed ejection fraction of 40%; however on catheterization the EF was more like 30%. The echo showed some global hypokinesis. The right ventricle was moderately dilated, left atrium moderately dilated. The aortic valve had a valve area of 2.7. The mitral valve was severe regurgitation with an eccentric jet. The tricuspid valve had severe regurgitation with RV pressure of 71 mmHg consistent with moderate pulmonary hypertension. She underwent cardiac catheterization on the , right and left heart catheterization, which showed some approximately 50% stenosis in the mid portion of the LAD. The circuit had some mild disease of 30%. RA pressures were 8, RV pressures 43/7, PA pressures are 45/25, a wedge pressure of 13, cardiac output of 5.4. We were consulted on 01/17 after JACLYN completed by Dr Wright for mitral valve and tricuspid valve repair/replacement. PAST MEDICAL HISTORY: Includes tricuspid regurgitation, pulmonary hypertension and mitral regurgitation. Diabetes mellitus, diet controlled. She has documented metformin, but does not take it. She checks her blood sugars. Hyperlipidemia, hypertension, left bundle branch block, history of PSVT , postural vertigo. 01/24 Pt electively admitted for surgery today surgery: 1. Median Sternotomy 2. Mitral Valve Repair 3. Tricuspid Valve Repair 4. Right Femoral Artery and Vein Cannulation for Cardiopulmonary bypass extubated after surgery crystalloid 2000cc, 850cc cell saver , 1700cc EBL 01/25 weaned off pressors, slightly tachycardic BP labile, will keep in CVICU today wean 02 as tolerated start coumadin when chest tubes out, goal 2-2.5 x 6 weeks pulm toileting 01/26 chest tube drained 160cc/ 12 hrs / will leave in for now sinus tach this am rate 130, BP improved, add BB also increase po amiodarone low grade temp, poor cough effort / needs aggressive pulm toileting transfer to stepdown today 01/27 pt very weak, feels tired + fluid balance gentle diuresis on amiodarone and BB now on room air drained 100cc/ 12 hrs, then additional 250cc serous drainage this am will leave chest tube in for now 01/28 chest tube dc without difficultly on room air feels better, poor appetite eval for discharge to rehab tomorrow start low dose HCTZ, BP too labile to start JENNIE/ EF 25% 01/29- Patient was supposed to be discharged to SNF Wednesday but apparently had some delay based on [employer] insurance? I was not notified of this issue and briefly saw her, but did not leave a note yesterday. She is doing well and is ready for D/C. Objective: Vital Signs Date Time Temp Pulse Resp B/P (MAP) Pulse Ox O2 Delivery O2 Flow Rate FiO2 01/31/18 11:00 74 01/31/18 11:00 97.5 77 20 104/65 (78) 95 01/31/18 10:00 75 01/31/18 09:00 78 01/31/18 08:00 72 01/31/18 07:15 97.8 76 19 117/62 (80) 95 01/31/18 07:00 69 01/31/18 06:14 73 01/31/18 05:03 71 01/31/18 04:49 97.6 69 100/61 (74) 92 01/31/18 04:46 66 01/31/18 03:00 69 01/31/18 02:51 67 01/31/18 01:38 80 01/31/18 00:23 98.0 69 100/58 (72) 93 01/31/18 00:20 72 01/30/18 23:00 69 01/30/18 22:04 67 01/30/18 21:47 69 01/30/18 21:43 16 01/30/18 19:00 95 01/30/18 19:00 98.2 95 124/67 (86) 95 01/30/18 18:08 79 01/30/18 17:12 77 01/30/18 16:09 78 01/30/18 15:05 90 01/30/18 15:05 97.8 86 18 126/73 (90) 97 01/30/18 14:22 73 01/30/18 13:13 73 01/30/18 12:04 77 Labs: Laboratory Tests Test 01/31/18 10:50 White Blood Count 12.1 TH/MM3 (4.0-11.0) Red Blood Count 4.49 MIL/MM3 (4.00-5.30) Hemoglobin 12.8 GM/DL (11.6-15.3) Hematocrit 38.7 % (35.0-46.0) Mean Corpuscular Volume 86.2 FL (80.0-100.0) Mean Corpuscular Hemoglobin 28.6 PG (27.0-34.0) Mean Corpuscular Hemoglobin Concent 33.2 % (32.0-36.0) Red Cell Distribution Width 14.4 % (11.6-17.2) Platelet Count 339 TH/MM3 (150-450) Mean Platelet Volume 7.9 FL (7.0-11.0) Prothrombin Time 33.0 SEC (9.8-11.6) Prothromb Time International Ratio 3.3 RATIO Result Diagram: 01/31/18 1050 01/29/18 0401 Imaging: Last Impressions Chest X-Ray 01/29/18 0600 Signed Impressions: Service Date/Time: Monday, January 29, 2018 04:00 - CONCLUSION: 1. Cardiomegaly with basilar airspace disease and small effusions similar to January 25. Removal of previous central chest tubes and right central line. Ishan Miller MD Cardiovascular: RRR Telemetry: NSR Pulmonary: CTA GI/: NABS, NT Incision: dry and intact Plan: Transfer to SNF INR is 3.3 - will decrease Coumadin dose. (1) Diabetes mellitus Plan: not eating well on insulin sliding scale restart metformin when sugars stabilized / may need to continue to hold (2) Tricuspid regurgitation Plan: s/p repair medtronic ring (3) Mitral regurgitation Plan: s/p repair medtronic ring start coumadin when chest tubes out goal 2-2.5 x 6 weeks OOB ambulate transfer to stepdown amiodarone and add BB gentle diuresis CM to eval for rehab (4) COPD (chronic obstructive pulmonary disease) Plan: resume home inhalers pulm toileting (5) Cardiomyopathy Plan: on BB HCTZ, will not tolerate JENNIE at this time China Downing MD January 31, 2018 11:39
[2018-01-31 11:40] LABS: BICARBONATE 29.2 MEQ/L (21.0-32.0); CALCIUM 8.1 MG/DL (8.5-10.1); CREATININE 0.76 MG/DL (0.50-1.00); MAGNESIUM 2.2 MG/DL (1.5-2.5)
[2018-01-31] MEDS ORDERED: COUM5TAB PO (11:48)
[2018-01-31] MEDS ORDERED: WARFARIN SOD 2.5 MG TAB PO SCH (16:00)
[2018-01-31] MEDS: SENNOSIDES 8.6 MG TAB PO SCH (20:26)
[2018-01-31] MEDS: ACETAMINOPHEN 325 MG TAB PO PRN (20:27)
[2018-02-01] VITALS (17 sets, daily range): BP systolic 98–118; BP diastolic 58–74; PULSE 69–92; RESP 18; TEMP 97.4–98.7; O2SAT 92–96
[2018-02-01] MEDS: PANTOPRAZOLE SOD 40 MG DELAYED RELEASE TAB PO SCH (06:07)
[2018-02-01] MEDS: ONDANSETRON ODT 4 MG TAB PO PRN (08:01)
[2018-02-01] MEDS: INSULIN ASPART SUPPLEMENTAL SCALE SQ SCH ×3 (08:26→12:09)
[2018-02-01] MEDS: POLYETHYLENE GLYCOL 17 GM PKG PO SCH (09:07)
[2018-02-01] MEDS: AMIODARONE 200 MG TAB PO SCH (09:08)
[2018-02-01] MEDS: METOPROLOL TARTRATE 25 MG TAB PO SCH (09:08)
[2018-02-01] MEDS: DOCUSATE SODIUM 100 MG CAP PO SCH (09:08)
[2018-02-01] MEDS: MULTIVITAMINS/MINERALS THERAPEUTIC TAB PO SCH (09:08)
[2018-02-01] MEDS: ASPIRIN 81 MG CHEW TAB PO SCH (09:09)
[2018-02-01] MEDS: HYDROCHLOROTHIAZIDE 12.5 MG CAP PO SCH (09:09)
[2018-02-01] MEDS: ACETAMINOPHEN 325 MG TAB PO PRN ×2 (09:09→13:17)
[2018-02-01] MEDS: MAGNESIUM HYDROXIDE SUSP 30 ML CUP PO SCH (09:09)
[2018-02-01] MEDS: FLUTICASONE 100 MCG/VILANTEROL 25 MCG INHALER INH SCH (09:10)
[2018-02-01] MEDS: SODIUM CHLORIDE 0.9% FLUSH 10 ML FLUSH IV FLUSH SCH (09:11)
[2018-02-01 10:21] LABS: PROTHROMBIN TIME - PATIENT 20.2 SEC (9.8-11.6)
[2018-02-01] MEDS ORDERED: FUROSEMIDE 20 MG/2 ML VIAL IV PUSH ONE (11:00)
[2018-02-01] MEDS ORDERED: POTASSIUM CHLORIDE 10 MEQ CONTROLLED RELEASE TAB PO ONE (11:00)
--- NOTE | 2018-02-01 11:02 | PD.CAR.PN ---
CVT Progress Note Subjective/Hospital Course: A 77-year-old female patient of Dr. Narda Torres and Dr. Saldana , initially seen 01/17/18, who has had symptoms of shortness of breath and some lower extremity edema for the past month, easily fatigued, history of mitral regurgitation and tricuspid regurgitation, recently underwent a cardiology followup, which showed ejection fraction of 40%; however on catheterization the EF was more like 30%. The echo showed some global hypokinesis. The right ventricle was moderately dilated, left atrium moderately dilated. The aortic valve had a valve area of 2.7. The mitral valve was severe regurgitation with an eccentric jet. The tricuspid valve had severe regurgitation with RV pressure of 71 mmHg consistent with moderate pulmonary hypertension. She underwent cardiac catheterization on the , right and left heart catheterization, which showed some approximately 50% stenosis in the mid portion of the LAD. The circuit had some mild disease of 30%. RA pressures were 8, RV pressures 43/7, PA pressures are 45/25, a wedge pressure of 13, cardiac output of 5.4. We were consulted on 01/17 after JACLYN completed by Dr Wright for mitral valve and tricuspid valve repair/replacement. PAST MEDICAL HISTORY: Includes tricuspid regurgitation, pulmonary hypertension and mitral regurgitation. Diabetes mellitus, diet controlled. She has documented metformin, but does not take it. She checks her blood sugars. Hyperlipidemia, hypertension, left bundle branch block, history of PSVT , postural vertigo. 01/24 Pt electively admitted for surgery today surgery: 1. Median Sternotomy 2. Mitral Valve Repair 3. Tricuspid Valve Repair 4. Right Femoral Artery and Vein Cannulation for Cardiopulmonary bypass extubated after surgery crystalloid 2000cc, 850cc cell saver , 1700cc EBL 01/25 weaned off pressors, slightly tachycardic BP labile, will keep in CVICU today wean 02 as tolerated start coumadin when chest tubes out, goal 2-2.5 x 6 weeks pulm toileting 01/26 chest tube drained 160cc/ 12 hrs / will leave in for now sinus tach this am rate 130, BP improved, add BB also increase po amiodarone low grade temp, poor cough effort / needs aggressive pulm toileting transfer to stepdown today 01/27 pt very weak, feels tired + fluid balance gentle diuresis on amiodarone and BB now on room air drained 100cc/ 12 hrs, then additional 250cc serous drainage this am will leave chest tube in for now 01/28 chest tube dc without difficultly on room air feels better, poor appetite eval for discharge to rehab tomorrow start low dose HCTZ, BP too labile to start JENNIE/ EF 25% 01/29- Patient was supposed to be discharged to SNF Wednesday but apparently had some delay based on [employer] insurance? I was not notified of this issue and briefly saw her, but did not leave a note yesterday. She is doing well and is ready for D/C. 02/01 waiting on SNF bed will give 2.5mg coumadin today still unable to start JENNIE / 2/2 labile BP Objective: Vital Signs Date Time Temp Pulse Resp B/P (MAP) Pulse Ox O2 Delivery O2 Flow Rate FiO2 02/01/18 10:00 82 02/01/18 09:29 95 21 02/01/18 09:00 82 02/01/18 08:02 97.5 76 18 98/58 (71) 95 02/01/18 08:00 82 02/01/18 07:00 75 02/01/18 06:00 77 02/01/18 05:07 84 02/01/18 04:00 69 02/01/18 04:00 98.4 69 18 101/58 (72) 96 02/01/18 03:00 69 02/01/18 02:00 78 02/01/18 01:00 79 02/01/18 00:00 78 02/01/18 00:00 98.7 78 18 105/62 (76) 96 01/31/18 22:35 93 21 01/31/18 20:00 99.1 99 18 112/62 (79) 95 01/31/18 18:00 90 01/31/18 17:00 90 01/31/18 16:00 82 01/31/18 15:00 97.9 84 17 104/64 (77) 92 01/31/18 15:00 84 01/31/18 14:00 82 01/31/18 13:00 80 01/31/18 12:00 73 01/31/18 11:00 74 01/31/18 11:00 97.5 77 20 104/65 (78) 95 Labs: Laboratory Tests Test 02/01/18 09:29 Prothrombin Time 20.2 SEC (9.8-11.6) Prothromb Time International Ratio 2.0 RATIO Result Diagram: 01/31/18 1050 01/31/18 1050 (1) Diabetes mellitus Plan: appeti on insulin sliding scale tie improving (2) Tricuspid regurgitation Plan: s/p repair medtronic ring (3) Mitral regurgitation Plan: s/p repair medtronic ring start coumadin when chest tubes out goal 2-2.5 x 6 weeks OOB ambulate transfer to stepdown amiodarone and add BB gentle diuresis CM to eval for rehab (4) COPD (chronic obstructive pulmonary disease) Plan: resume home inhalers pulm toileting (5) Cardiomyopathy Plan: on BB HCTZ, will not tolerate JENNIE at this time Milla Cline February 01, 2018 11:02
[2018-02-01] MEDS ORDERED: WARFARIN SOD 2.5 MG TAB PO SCH (16:00)
== END 2018-02-01 14:03 | DRG 219 ==
LOC: HSDI 05:28 → HCVI 14:08 → HCPC 01-26 12:15
PROVIDERS: ADMIT Thoracic Surgery (Cardiothoracic Vascular Surgery); ATTEND Thoracic Surgery (Cardiothoracic Vascular Surgery)
PROC: 02UJ0JZ Supplement Tricuspid Valve with Synthetic Substitute, Open Approach (ICD-10-PCS; 2018-01-24)
PROC: 02BG0ZZ Excision of Mitral Valve, Open Approach (ICD-10-PCS; 2018-01-24)
PROC: B246ZZ4 Ultrasonography of Right and Left Heart, Transesophageal (ICD-10-PCS; 2018-01-24)
PROC: 5A1221Z Performance of Cardiac Output, Continuous (ICD-10-PCS; 2018-01-24)
PROC: 02UG0JZ Supplement Mitral Valve with Synthetic Substitute, Open Approach (ICD-10-PCS; principal; 2018-01-24 07:24)
PROC: 5A1935Z Respiratory Ventilation, Less than 24 Consecutive Hours (ICD-10-PCS; 2018-01-24 07:24)
DX: I08.1 Rheumatic disorders of both mitral and tricuspid valves (principal); I50.21 Acute systolic (congestive) heart failure; J44.9 Chronic obstructive pulmonary disease, unspecified; I42.9 Cardiomyopathy, unspecified; I27.20 Pulmonary hypertension, unspecified; D62 Acute posthemorrhagic anemia; J98.11 Atelectasis; I25.10 Atherosclerotic heart disease of native coronary artery without angina pectoris; E78.5 Hyperlipidemia, unspecified; Z83.3 Family history of diabetes mellitus; Z87.891 Personal history of nicotine dependence; E11.9 Type 2 diabetes mellitus without complications; I44.7 Left bundle-branch block, unspecified; I11.0 Hypertensive heart disease with heart failure
CPT/HCPCS: 71045; 80048; 80053; 81001; 82948; 83735; 84100; 85025; 85027; 85610; 86850; 86900; 86901; 86920; 86921; 86922; 88305; 93005; 93318; 94002; 94150; 94640; 94664; 94667; 94668; C9290; J0131; J0171; J0330; J0690; J1100; J1265; J1644; J1815; J1817; J1885; J1940; J2150; J2250; J2270; J2370; J2405; J2720; J3010; J3370; J3475; J3480; J7060; J7120; P9045; P9047

== ENCOUNTER 2018-04-21 11:46 | Inpatient (IN) ==
--- NOTE | 2018-04-21 13:15 | ED ---
HPI General Chief Complaint: Shortness of Breath/Dyspnea Stated Complaint: Dr shai/cardiac complaint Time Seen by Provider: 04/21/18 12:30 Source: patient Mode of arrival: ambulatory Limitations: no limitations History of Present Illness 77-year-old female that presents to the ED for evaluation of shortness of breath with exertion as well as orthopnea. Per patient she has a history of CHF. Per patient she follows with Dr. Saldana and is currently follow with Dr. Ortega to get a pacemaker placed in the next few weeks. Per patient she had a CABG in the past year. Per patient she takes Lasix 20 mg. Per patient she was told to continue taking this medication by her doctor did not want to increase her Lasix secondary to her low blood pressure. She states that she has noted that since last week she has gained 10 pounds. She states that her legs are getting more swollen. She takes Lasix as prescribed. Per patient she called the radiologist's office and the recommended that she comes here to get evaluated. She denies any chest pain but states having shortness of breath with exertion. No urinary or bowel movement issues. Per patient she does had an echocardiogram yesterday and got the results of it that showed that she had an ejection fracture of 20%. She also states that she has some history of heart valve issues. Related Data Home Medications Medication Instructions Recorded Confirmed fluticasone-vilanterol [Breo 1 inh INHALATION DAILY 04/21/18 04/21/18 Ellipta] furosemide [Lasix] 20 mg PO DAILY 04/21/18 04/21/18 metoprolol tartrate 12.5 mg PO BID 04/21/18 04/21/18 potassium chloride 10 meq PO DAILY 04/21/18 04/21/18 Allergies Allergy/AdvReac Type Severity Reaction Status Date / Time No Known Allergies Allergy Verified 04/21/18 12:51 Review of Systems ROS: all other systems reviewed are negative [facility] Medical History Medical History HBP (high blood pressure) (Acute) Surgical History Surgical History H/O aortic valve replacement (Acute) Hx of heart surgery (Acute) Social History Social History Substance History: No History of Abuse Smoking Status: Never smoker How Often Do You Have a Drink Containing Alcohol: Never Recent Travel in [place] within the Last 8 Weeks: No Recent Out of Country Travel within the Last 8 Weeks: No Immunization History Tetanus Immunization: >5 Years Hx Influenza Vaccine This Season: Yes Exam Narrative Exam Narrative: GENERAL: Well-appearing SKIN: Focused skin assessment warm/dry. HEAD: Atraumatic. Normocephalic. EYES: Pupils equal and round. No scleral icterus. No injection or drainage. ENT: No nasal bleeding or discharge. Mucous membranes pink and moist. Tongue is midline. No uvula deviation. NECK: Trachea midline. No JVD. CARDIOVASCULAR: Regular rate and rhythm. No murmur appreciated. RESPIRATORY: No accessory muscle use. Clear to auscultation. Breath sounds equal bilaterally. GASTROINTESTINAL: Abdomen soft, non-tender, nondistended. Hepatic and splenic margins not palpable. MUSCULOSKELETAL: No obvious deformities. No clubbing. No cyanosis. Full ROM of the upper and lower extremities. 2+ pitting edema lower legs bilaterally. NEUROLOGICAL: Awake and alert. No obvious cranial nerve deficits. Motor grossly within normal limits. Normal speech. PSYCHIATRIC: Appropriate mood and affect; insight and judgment normal. Course Initial Documented Vital Signs Temperature 98.0 F 04/21/18 11:50 Pulse Rate 89 04/21/18 11:50 Respiratory Rate 16 04/21/18 11:50 Blood Pressure 105/60 04/21/18 11:50 Pulse Oximetry 99 04/21/18 11:50 Last Documented Vital Signs Temperature 97.8 F 04/21/18 15:24 Pulse Rate 83 04/21/18 15:24 Respiratory Rate 20 04/21/18 15:24 Blood Pressure 107/63 04/21/18 15:24 Pulse Oximetry 98 04/21/18 15:24 Medical Decision Making ANA PAULA Attestation ANA PAULA supervised visit: Yes Attestation: I, Dr. stanton, have reviewed the advance practice practitioner's documentation and am in agreement, met with the patient face to face, made the diagnosis, and the medical decision making was done by me. *My assessment and Findings: 77-year-old female presenting with shortness of breath. Findings of CHF exacerbation. Will admit for further care. Patient agrees to plan MDM Narrative Medical decision making narrative: 77-year-old female that presents to the ED for evaluation of shortness of breath with exertion and swelling. Patient was properly examined and was found to have signs and symptoms consistent appears to be CHF exacerbation. Labs and imaging were ordered. Labs and imaging showed pleural effusions with CHF exacerbation. Lasix given. Due to symptoms I recommend admission for further evaluation. My attending Dr Stanton agrees. Patient admitted to Dr Krishnamurthy who agrees with plan. Differential Diagnosis Differential Diagnosis: CHF exacerbation versus angina versus ACS versus fluid overload Medical Records Medical records reviewed: Yes I reviewed the patient's medical records. Lab Data Lab results reviewed: Yes I reviewed the patient's lab results. Lab results narrative: troponin negative BNP in the Result diagrams: 04/21/18 13:00 04/21/18 13:00 Lab Results 04/21/18 04/21/18 04/21/18 Range/Units 13:00 13:00 13:00 WBC 6.8 (4.0-11.0) th/mm3 RBC 4.31 (4.00-5.30) mil/mm3 Hgb 12.1 (11.6-15.3) gm/dL Hct 36.4 (35.0-46.0) % MCV 84.5 (80.0-100.0) fL MCH 28.1 (27.0-34.0) pg MCHC 33.2 (32.0-36.0) % RDW 16.3 (11.6-17.2) % Plt Count 254 (150-450) th/mm3 MPV 8.0 (7.0-11.0) fL Neut % (Auto) 61.2 (16.0-70.0) % Lymph % (Auto) 26.8 (9.0-44.0) % [place] % (Auto) 6.8 (0.0-8.0) % Eos % (Auto) 4.5 H (0.0-4.0) % Baso % (Auto) 0.7 (0.0-2.0) % Neut # (Auto) 4.2 (1.8-7.7) th/mm3 Lymph # (Auto) 1.8 (1.0-4.8) th/mm3 [place] # (Auto) 0.5 (0.0-0.9) th/mm3 Eos # (Auto) 0.3 (0.0-0.4) th/mm3 Baso # (Auto) 0.0 (0.0-0.2) th/mm3 WBC Differential . Differential Comment Auto diff final Sodium 139 (136-145) meq/L Potassium 4.1 (3.5-5.1) meq/L Chloride 106 (98-107) meq/L Carbon Dioxide 24.4 (21.0-32.0) meq/L Anion Gap 9 (5-15) meq/L BUN 17 (7-18) mg/dL Creatinine 0.82 (0.50-1.00) mg/dL Estimated GFR 68 L (>89) mL/min POC Glucose (68-110) mg/dl Random Glucose 75 (74-106) mg/dL Calcium 8.4 L (8.5-10.1) mg/dL Total Bilirubin 0.6 (0.2-1.0) mg/dL AST 34 (15-37) U/L ALT 59 H (10-53) U/L Alkaline Phosphatase 108 (45-117) U/L Troponin I Less than 0.02 L (0.02-0.05) ng/mL B-Natriuretic Peptide 2107 H (0-100) pg/mL Total Protein 6.6 (6.4-8.2) g/dL Albumin 3.6 (3.4-5.0) g/dL 04/21/18 Range/Units 14:42 WBC (4.0-11.0) th/mm3 RBC (4.00-5.30) mil/mm3 Hgb (11.6-15.3) gm/dL Hct (35.0-46.0) % MCV (80.0-100.0) fL MCH (27.0-34.0) pg MCHC (32.0-36.0) % RDW (11.6-17.2) % Plt Count (150-450) th/mm3 MPV (7.0-11.0) fL Neut % (Auto) (16.0-70.0) % Lymph % (Auto) (9.0-44.0) % [place] % (Auto) (0.0-8.0) % Eos % (Auto) (0.0-4.0) % Baso % (Auto) (0.0-2.0) % Neut # (Auto) (1.8-7.7) th/mm3 Lymph # (Auto) (1.0-4.8) th/mm3 [place] # (Auto) (0.0-0.9) th/mm3 Eos # (Auto) (0.0-0.4) th/mm3 Baso # (Auto) (0.0-0.2) th/mm3 WBC Differential Differential Comment Sodium (136-145) meq/L Potassium (3.5-5.1) meq/L Chloride (98-107) meq/L Carbon Dioxide (21.0-32.0) meq/L Anion Gap (5-15) meq/L BUN (7-18) mg/dL Creatinine (0.50-1.00) mg/dL Estimated GFR (>89) mL/min POC Glucose 87 (68-110) mg/dl Random Glucose (74-106) mg/dL Calcium (8.5-10.1) mg/dL Total Bilirubin (0.2-1.0) mg/dL AST (15-37) U/L ALT (10-53) U/L Alkaline Phosphatase (45-117) U/L Troponin I (0.02-0.05) ng/mL B-Natriuretic Peptide (0-100) pg/mL Total Protein (6.4-8.2) g/dL Albumin (3.4-5.0) g/dL Imaging Data Attestation: I personally reviewed and interpreted this imaging study as follows : Radiologist's impression: Chest X-Ray 04/21/18 12:01 CONCLUSION: Right greater than left consolidation and effusions at the lung bases. ECG Data Attestation: I personally reviewed and interpreted this ECG as follows: Interpretation: EKG shows sinus rhythm with no sign of acute ischemia or arrhythmia. No ST elevations. No changes from prior earlier this year. Read by me and attending. Discharge Plan Discharge Disposition Patient Disposition: 30 Still Patient Discharge Details Diagnosis: CHF (congestive heart failure) Physicians Team ED Provider: Amelia Stanton ED Midlevel Provider: Kevon Peterson Primary Care Provider: Narda Torres Attending Provider: Jonathan Krishnamurthy Status ED Status: Admitted Observation Patient
[2018-04-21 13:56] LABS: Baso % (Auto) 0.7 % (0.0-2.0); Eos # (Auto) 0.3 th/mm3 (0.0-0.4); Eos % (Auto) 4.5 % (0.0-4.0); Hematocrit 36.4 % (35.0-46.0); Hemoglobin 12.1 gm/dL (11.6-15.3); Lymph # (Auto) 1.8 th/mm3 (1.0-4.8); Lymph % (Auto) 26.8 % (9.0-44.0); Mean Corpuscular HGB Conc 33.2 % (32.0-36.0); Mean Corpuscular Hemoglobin 28.1 pg (27.0-34.0); Mean Corpuscular Volume 84.5 fL (80.0-100.0); Mono # (Auto) 0.5 th/mm3 (0.0-0.9); Mono % (Auto) 6.8 % (0.0-8.0); Neut # (Auto) 4.2 th/mm3 (1.8-7.7); Neut % (Auto) 61.2 % (16.0-70.0); Platelet Count 254 th/mm3 (150-450); Red Blood Count 4.31 mil/mm3 (4.00-5.30); Red Cell Distribution Width 16.3 % (11.6-17.2); White Blood Count 6.8 th/mm3 (4.0-11.0)
--- NOTE | 2018-04-21 14:06 | XR ---
EXAM DATE: 04/21/2018 1:43 PM EDT AGE/SEX: 77 years / Female INDICATIONS: Short of breath. CLINICAL DATA: This is the patient's initial encounter. Patient reports that signs and symptoms have been present for 1 week and indicates a pain score of 0/10. MEDICAL/SURGICAL HISTORY: None. CABG. COMPARISON: . FINDINGS: Small right and tiny left pleural effusions are present with basilar consolidation. No pneumothorax. Heart size stable, within normal limits. Patient has had previous median sternotomy and valve replace ment. CONCLUSION: Right greater than left consolidation and effusions at the lung bases. Electronically signed by: Jayesh Rios MD 04/21/2018 2:04 PM EDT
[2018-04-21 14:17] LABS: Alanine Aminotransferase 59 U/L (10-53); Albumin 3.6 g/dL (3.4-5.0); Anion Gap 9 meq/L (5-15); Aspartate Aminotransferase 34 U/L (15-37); Blood Urea Nitrogen 17 mg/dL (7-18); Calcium 8.4 mg/dL (8.5-10.1); Carbon Dioxide 24.4 meq/L (21.0-32.0); Chloride 106 meq/L (98-107); Glomerular Filtration Rate 68 mL/min (>89); Glucose,Random 75 mg/dL (74-106); Potassium 4.1 meq/L (3.5-5.1); Sodium 139 meq/L (136-145)
[2018-04-21 14:21] LABS: Alkaline Phosphatase 108 U/L (45-117); Total Protein 6.6 g/dL (6.4-8.2)
--- NOTE | 2018-04-21 15:50 | P.HPIM ---
History of Present Illness Primary Care Physician: Narda Torres MD History of Present Illness: Mrs. Alberto is a 77-year-old female. She has a past history of cardiac valve disease 2. She has had valve repair surgery in January 2018. Today she comes in with a worsening shortness of breath. She had an echocardiogram as an outpatient which showed an approximate 20% ejection fraction. She had planned to have a pacemaker placed at the end of this month, however, at this time she does not feel that she can last until then so she came in for medical treatment. BMP is found to be elevated. Bilateral pleural effusions are seen on imaging. Pulmonary edema is present. Peripheral edema is present. No fevers or cough. No known precipitating factor. No complaints of chest pain. - Diagnosis (1) CHF (congestive heart failure) Review of Systems Constitutional: Denies fever(s), Denies night sweats, Denies weakness Eyes: Denies blind spots, Denies blurry vision, Denies change in vision, Denies double vision Ears, Nose, Mouth, and Throat: Denies abnormal hearing, Denies bleeding gums, Denies change in voice, Denies dental pain Cardiovascular: Reports shortness of breath, Denies chest pain, Denies chest pain at rest, Denies chest pain with activity Respiratory: Reports shortness of breath, Denies cough, Denies wheezing Gastrointestinal: Denies abdominal pain, Denies bright, red blood in stools, Denies constipation Musculoskeletal: Denies abnormal walking, Denies back pain, Denies body aches Skin/Breast: Denies rash, Denies skin pain, Denies skin ulcer Neurologic: Denies abnormal hearing, Denies abnormal movements, Denies abnormal speech [facility] - History History Provided By: Patient - Medical History Medical History: Medical History (Last Updated 04/21/18 @ 15:47 by Jonathan Krishnamurthy MD) CHF (congestive heart failure), NYHA class IV HBP (high blood pressure) - Surgical History Surgical History: Surgical History (Last Reviewed 04/21/18 @ 13:14 by JULIEN Matthews) H/O aortic valve replacement Hx of heart surgery - Family History Family History: Family History (Last Updated 04/21/18 @ 16:48 by Jonathan Krishnamurthy MD) Other Diabetes mellitus type 2 in nonobese - Tobacco History Smoking Status: Never smoker - Alcohol History How Often Do You Have a Drink Containing Alcohol: Never - Substance Use History Substance History: No History of Abuse - Travel History Recent Travel in the [place] Within the Last 8 Weeks: No Recent Travel Out of the Country Within the Last 8 Weeks: No - Immunization History Tetanus Immunization: >5 Years Hx Influenza Vaccine This Season: Yes Medications and Allergies Active Medications: Active Medications Al Hydroxide/Mg Hydroxide (Milk Of Magnjosemanuel Liq) 30 ml PO Q12H PRN PRN Reason: Mild Constipation Fluticasone/Vilanterol (Breo Ellipta 200/25 Mcg Inh) puff INH DAILY SLOAN Furosemide (Lasix Inj) 40 mg IV.PUSH BID@0900,1800 SLOAN Metoprolol Tartrate (Lopressor) 12.5 mg PO BID SLOAN Ondansetron HCl (Zofran Inj) 4 mg IV.PUSH Q6H PRN PRN Reason: NAUSEA OR VOMITING Potassium Chloride (Klor-Con 10) 10 meq PO DAILY SLOAN Allergies Allergy/AdvReac Type Severity Reaction Status Date / Time No Known Allergies Allergy Verified 04/21/18 12:51 Home Medications Medication Instructions Recorded Confirmed Type fluticasone-vilanterol [Breo 1 inh INHALATION DAILY 04/21/18 04/21/18 History Ellipta] furosemide [Lasix] 20 mg PO DAILY 04/21/18 04/21/18 History metoprolol tartrate 12.5 mg PO BID 04/21/18 04/21/18 History potassium chloride 10 meq PO DAILY 04/21/18 04/21/18 History Exam Vital signs: Vital Signs 04/21/18 11:50 04/21/18 11:53 04/21/18 12:48 Temperature 98.0 F 97.7 F Pulse Rate 89 87 87 Respiratory Rate 16 18 Blood Pressure 105/60 112/67 Pulse Oximetry 99 98 98 04/21/18 12:53 04/21/18 15:24 Temperature 97.7 F 97.8 F Pulse Rate 84 83 Respiratory Rate 18 20 Blood Pressure 109/74 107/63 Pulse Oximetry 98 98 Intake & Output 04/20/18 04/21/18 04/21/18 18:59 06:59 18:59 Output Total 1100 / 1100 Balance -1100 / -1100 Weight 171 kg Output: Urine 1100 / 1100 Other: # Voids 1 Narrative: GENERAL: NAD, A&Ox3 HEAD: Normocephalic. NECK: Supple, trachea midline. No lymphadenopathy. EYES: No scleral icterus. No injection or drainage. CARDIOVASCULAR: Regular rate and rhythm without murmurs, gallops, or rubs. RESPIRATORY: Breath sounds equal bilaterally. No accessory muscle use. GASTROINTESTINAL: Abdomen soft, non-tender, nondistended. MUSCULOSKELETAL: No cyanosis, or edema. SKIN: Warm and dry. NEURO: No focal neurological deficits. Results - Labs CBC & Chem 7: 04/21/18 13:00 04/21/18 13:00 Labs: Short CBC 04/21/18 Range/Units 13:00 WBC 6.8 (4.0-11.0) th/mm3 Hgb 12.1 (11.6-15.3) gm/dL Hct 36.4 (35.0-46.0) % Plt Count 254 (150-450) th/mm3 BMP 04/21/18 13:00 Sodium 139 Potassium 4.1 Chloride 106 Carbon Dioxide 24.4 BUN 17 Creatinine 0.82 Calcium 8.4 L Cardiac Enzymes 04/21/18 Range/Units 13:00 Troponin I Less than 0.02 L (0.02-0.05) ng/mL Liver Function 04/21/18 Range/Units 13:00 Total Bilirubin 0.6 (0.2-1.0) mg/dL AST 34 (15-37) U/L ALT 59 H (10-53) U/L Alkaline Phosphatase 108 (45-117) U/L Albumin 3.6 (3.4-5.0) g/dL - Imaging Impressions Chest X-Ray 04/21/18 12:01 CONCLUSION: Right greater than left consolidation and effusions at the lung bases. Caprini VTE Risk Assessment Caprini VTE Risk Assessment: No/Low Risk (score <= 1) Caprini Risk Assessment Model: Point Value = 1 Point Value = 2 Point Value = 3 Point Value = 5 Age 41-60 Minor surgery BMI > 25 kg/m2 Swollen legs Varicose veins or History of unexplained or recurrent spontaneous Oral contraceptives or hormone replacement Sepsis (< 1 month) Serious lung disease, including pneumonia (< 1 month) Abnormal pulmonary function Acute myocardial infarction Congestive heart failure (< 1 month) History of inflammatory bowel disease Medical patient at bed rest Age 61-74 Arthroscopic surgery Major open surgery (> 45 min) Laparoscopic surgery (> 45 min) Malignancy Confined to bed (> 72 hours) Immobilizing plaster cast Central venous access Age >= 75 History of VTE Family history of VTE Factor V Leiden Prothrombin [id number] Lupus anticoagulant Anticardiolipin antibodies Elevated serum homocysteine Heparin-induced thrombocytopenia Other congenital or acquired thrombophilia Stroke (< 1 month) Elective arthroplasty Hip, pelvis, or leg fracture Acute spinal cord injury (< 1 month) Prophylaxis Regimen: Total Risk Factor Score Risk Level Prophylaxis Regimen 0-1 Low Early ambulation 2 Moderate Order ONE of the following: *Sequential Compression Device (SCD) *Heparin 5000 units SQ BID 3-4 Higher Order ONE of the following medications: *Heparin 5000 units SQ TID *Enoxaparin/Lovenox 40 mg SQ daily (WT < 150 kg, CrCl > 30 mL/min) *Enoxaparin/Lovenox 30 mg SQ daily (WT < 150 kg, CrCl > 10-29 mL/min) *Enoxaparin/Lovenox 30 mg SQ BID (WT < 150 kg, CrCl > 30 mL/min) AND/OR *Sequential Compression Device (SCD) 5 or more Highest Order ONE of the following medications: *Heparin 5000 units SQ TID (Preferred with Epidurals) *Enoxaparin/Lovenox 40 mg SQ daily (WT < 150 kg, CrCl > 30 mL/min) *Enoxaparin/Lovenox 30 mg SQ daily (WT < 150 kg, CrCl > 10-29 mL/min) *Enoxaparin/Lovenox 30 mg SQ BID (WT < 150 kg, CrCl > 30 mL/min) AND *Sequential Compression Device (SCD) Assessment and Plan - Assessment (1) CHF (congestive heart failure) Code(s): I50.9 - Heart failure, unspecified Status: Acute - Plan 77-year-old female admitted secondary to CHF exacerbation CHF exacerbation Cardiac valve disease Pulmonary edema Bilateral pleural effusions IV diuresis Monitor renal function Monitor blood pressures Oxygen as needed Follow clinically for improvement Follow on hardware engineer troponin levels Serial EKGs Cardiology consulted Bilateral pleural effusions are small and unlikely to need any thoracentesis at this time Edema and bilateral pleural effusions will be treated with diuretics at this time History of hyperglycemia Patient reports controlled with diet No signs of hyperglycemia on admitting labs Monitor labs for now, repeat glucose in a.m. Consider insulin protocol if patient becomes hyperglycemic DVT prophylaxis Heparin SCDs (1) CHF (congestive heart failure) Qualifiers: Heart failure type: unspecified Heart failure chronicity: acute Qualified Code(s): I50.9 - Heart failure, unspecified
--- NOTE | 2018-04-21 18:51 | MB ---
cc: Tristen Hudson MD DATE: 04/21/2018 REASON FOR CONSULTATION: Evaluation of decompensated CHF. HISTORY OF PRESENT ILLNESS: Juana Alberto is a 77-year-old woman with valvular heart disease. She had severe mitral and tricuspid regurgitation. She had a cardiac catheterization 01/14/2018. Her left main coronary was normal, her LAD had a 50-60% mid disease, circumflex artery had 30% proximal disease, right coronary artery had irregularities and pulmonary artery pressure was elevated at 45/25. On 01/24/2018, she underwent mitral and tricuspid valve repairs, #28 rings were placed on both. 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 Unfortunately, her followup echo 04/14/2018 is showing severe mitral regurgitation and severe tricuspid regurgitation. Estimated right ventricular systolic pressure was 60 mmHg and ejection fraction is only 20%. She just saw Dr. Baires 3 days ago and he was planning to put a Bi-V defibrillator in her, but she has become progressively short of breath with increasing edema and a 10-pound weight gain. She is noted in a decompensated state and is admitted. She denies any chest pain or syncope; mainly just shortness of breath and lower extremity edema. PAST MEDICAL HISTORY: Includes diabetes, COPD, left bundle branch block, hypertension, obesity, previous smoking history, hyperlipidemia, nonocclusive coronary artery disease, and diabetes mellitus. PAST SURGICAL HISTORY: Includes her open heart surgery. MEDICATIONS PRIOR TO ADMISSION: Include only Lasix 20 mg daily and metoprolol 25 b.i.d. ALLERGIES: NONE KNOWN. FAMILY HISTORY: Noncontributory. SOCIAL HISTORY: She smoked socially at age 26. REVIEW OF SYSTEMS: Noncontributory. PHYSICAL EXAMINATION: GENERAL: Shows a pleasant, well-developed, well-nourished white female. VITAL SIGNS: Charted. HEENT: Unremarkable. NECK: Shows JVD. LUNGS: Shows absent breath sounds in the right base. CARDIAC: Shows S1 and S2. Regular rhythm with a grade I-II holosystolic murmur at the apex. ABDOMEN: Soft, nontender. EXTREMITIES: Reveal 1-2+ edema. DIAGNOSTIC STUDIES: EKG shows sinus rhythm with left bundle branch block. Chest x-ray is showing at least a moderate right pleural effusion. Troponins are negative. Creatinine is 0.82, potassium is 4.1. BNP elevated at 2107. IMPRESSION: [id number] systolic congestive heart failure, right pleural effusion, left bundle branch block. PLAN: IV Lasix has been started. She is on metoprolol 12.5 b.i.d. here. Need to get out her out of heart failure and then have Dr. Baires proceed with a BI-V defibrillator to help improve her heart function. I suspect that she will need to stay in the hospital at least several days. MD KARLA Hirsch/MARC , 06:34 PM , 06:43 PM
[2018-04-21] MEDS: Heparin - SQ 10,000 UNITS/ML Vial SQ SCH (21:05)
[2018-04-21] MEDS: Metoprolol Tartrate 25 MG Tablet PO SCH (22:21)
[2018-04-22 07:39] LABS: Baso % (Auto) 0.7 % (0.0-2.0); Eos # (Auto) 0.4 th/mm3 (0.0-0.4); Eos % (Auto) 6.4 % (0.0-4.0); Hematocrit 36.8 % (35.0-46.0); Hemoglobin 12.1 gm/dL (11.6-15.3); Lymph # (Auto) 2.1 th/mm3 (1.0-4.8); Lymph % (Auto) 32.5 % (9.0-44.0); Mean Corpuscular HGB Conc 32.9 % (32.0-36.0); Mean Corpuscular Hemoglobin 27.9 pg (27.0-34.0); Mean Corpuscular Volume 84.8 fL (80.0-100.0); Mono # (Auto) 0.4 th/mm3 (0.0-0.9); Neut # (Auto) 3.4 th/mm3 (1.8-7.7); Neut % (Auto) 53.4 % (16.0-70.0); Platelet Count 245 th/mm3 (150-450); Red Blood Count 4.34 mil/mm3 (4.00-5.30); Red Cell Distribution Width 15.9 % (11.6-17.2); White Blood Count 6.4 th/mm3 (4.0-11.0)
[2018-04-22 08:02] LABS: Albumin 3.3 g/dL (3.4-5.0); Anion Gap 8 meq/L (5-15); Aspartate Aminotransferase 30 U/L (15-37); Blood Urea Nitrogen 17 mg/dL (7-18); Calcium 8.4 mg/dL (8.5-10.1); Carbon Dioxide 26.6 meq/L (21.0-32.0); Chloride 105 meq/L (98-107); Glomerular Filtration Rate 64 mL/min (>89); Glucose,Random 96 mg/dL (74-106); Magnesium 2.2 mg/dL (1.5-2.5); Potassium 4.2 meq/L (3.5-5.1); Sodium 140 meq/L (136-145)
[2018-04-22 08:05] LABS: Alanine Aminotransferase 47 U/L (10-53); Alkaline Phosphatase 100 U/L (45-117); Total Protein 6.3 g/dL (6.4-8.2)
[2018-04-22] MEDS: Metoprolol Tartrate 25 MG Tablet PO SCH ×2 (08:15→20:43)
[2018-04-22] MEDS: Heparin - SQ 10,000 UNITS/ML Vial SQ SCH ×2 (08:20→20:43)
--- NOTE | 2018-04-22 10:11 | P.PN ---
Subjective Interval history: Follow-up for CHF exacerbation. Patient reports feeling mildly improved today. She still reports shortness of breath, worse with exertion. Denies any cough or wheeze. She endorses orthopnea, and prefers to sit upright in bed. Still with lower extremity edema however slowly improving. Denies any fevers or chills. Denies any chest pain. She has no other medical complaints at this time. She states she does have an appointment with Dr. Baires at the end of this month to discuss AICD placement, however she would prefer to have this done in the hospital if possible. Physical Exam Vital signs: Vital Signs 04/21/18 11:50 04/21/18 11:53 04/21/18 12:48 Temperature 98.0 F 97.7 F Pulse Rate 89 87 87 Respiratory Rate 16 18 Blood Pressure 105/60 112/67 Pulse Oximetry 99 98 98 04/21/18 12:53 04/21/18 15:24 04/21/18 17:05 Temperature 97.7 F 97.8 F 97.7 F Pulse Rate 84 83 78 Respiratory Rate 18 20 16 Blood Pressure 109/74 107/63 108/77 Pulse Oximetry 98 98 98 04/21/18 17:26 04/21/18 19:39 04/21/18 20:00 Temperature 97.6 F 97.7 F Pulse Rate 79 88 Respiratory Rate 16 18 Blood Pressure 111/74 100/55 L Pulse Oximetry 97 98 98 04/22/18 00:00 04/22/18 03:35 04/22/18 08:00 Temperature 97.9 F 97.7 F 98.1 F Pulse Rate 83 79 81 Respiratory Rate 16 16 18 Blood Pressure 100/62 99/61 L 101/61 Pulse Oximetry 98 96 96 Intake & Output 04/21/18 04/22/18 04/22/18 18:59 06:59 18:59 Intake Total 40 / 40 Output Total 1100 / 1100 Balance -1060 / -1060 Weight 78.018 kg Intake: Oral 40 / 40 Output: Urine 1100 / 1100 Other: # Voids 3 Weight On Admission 78.018 kg Narrative: GENERAL: Well-nourished, well-developed pleasant elderly female patient in [facility]. SKIN: Warm and dry. No rash. HEENT: Normocephalic. Atraumatic. Pupils equal and round. Mucous membranes pink and moist. NECK: Supple. Trachea midline. CARDIOVASCULAR: Regular rate and rhythm. 1/6 systolic murmur noted. RESPIRATORY: No accessory muscle use. Crackles at bilateral bases. Breath sounds equal bilaterally. GASTROINTESTINAL: Abdomen soft, non-tender, nondistended. Normoactive bowel sounds x4. MUSCULOSKELETAL: No obvious deformities. 1+ bilateral lower extremity edema. NEUROLOGICAL: Awake and alert. No obvious cranial nerve deficits. Motor grossly within normal limits. Moving all extremities spontaneously. Normal speech. PSYCHIATRIC: Appropriate mood and affect; insight and judgment normal. Results - Labs CBC & Chem 7: 04/22/18 07:06 04/22/18 07:06 Laboratory Results - last 24 hr 04/21/18 04/21/18 04/21/18 13:00 13:00 13:00 WBC 6.8 RBC 4.31 Hgb 12.1 Hct 36.4 MCV 84.5 MCH 28.1 MCHC 33.2 RDW 16.3 Plt Count 254 MPV 8.0 Neut % (Auto) 61.2 Lymph % (Auto) 26.8 [place] % (Auto) 6.8 Eos % (Auto) 4.5 H Baso % (Auto) 0.7 Neut # (Auto) 4.2 Lymph # (Auto) 1.8 [place] # (Auto) 0.5 Eos # (Auto) 0.3 Baso # (Auto) 0.0 WBC Differential . Differential Comment Auto diff final Sodium 139 Potassium 4.1 Chloride 106 Carbon Dioxide 24.4 Anion Gap 9 BUN 17 Creatinine 0.82 Estimated GFR 68 L POC Glucose Random Glucose 75 Calcium 8.4 L Magnesium Total Bilirubin 0.6 AST 34 ALT 59 H Alkaline Phosphatase 108 Troponin I Less than 0.02 L B-Natriuretic Peptide 2107 H Total Protein 6.6 Albumin 3.6 04/21/18 04/21/18 04/21/18 14:42 15:55 23:21 WBC RBC Hgb Hct MCV MCH MCHC RDW Plt Count MPV Neut % (Auto) Lymph % (Auto) [place] % (Auto) Eos % (Auto) Baso % (Auto) Neut # (Auto) Lymph # (Auto) [place] # (Auto) Eos # (Auto) Baso # (Auto) WBC Differential Differential Comment Sodium Potassium Chloride Carbon Dioxide Anion Gap BUN Creatinine Estimated GFR POC Glucose 87 Random Glucose Calcium Magnesium Total Bilirubin AST ALT Alkaline Phosphatase Troponin I Less than 0.02 L 0.02 B-Natriuretic Peptide Total Protein Albumin 04/22/18 04/22/18 07:06 07:06 WBC 6.4 RBC 4.34 Hgb 12.1 Hct 36.8 MCV 84.8 MCH 27.9 MCHC 32.9 RDW 15.9 Plt Count 245 MPV 8.0 Neut % (Auto) 53.4 Lymph % (Auto) 32.5 [place] % (Auto) 7.0 Eos % (Auto) 6.4 H Baso % (Auto) 0.7 Neut # (Auto) 3.4 Lymph # (Auto) 2.1 [place] # (Auto) 0.4 Eos # (Auto) 0.4 Baso # (Auto) 0.0 WBC Differential . Differential Comment Auto diff final Sodium 140 Potassium 4.2 Chloride 105 Carbon Dioxide 26.6 Anion Gap 8 BUN 17 Creatinine 0.86 Estimated GFR 64 L POC Glucose Random Glucose 96 Calcium 8.4 L Magnesium 2.2 Total Bilirubin 0.7 AST 30 ALT 47 Alkaline Phosphatase 100 Troponin I B-Natriuretic Peptide Total Protein 6.3 L Albumin 3.3 L - Imaging Impressions Chest X-Ray 04/21/18 12:01 CONCLUSION: Right greater than left consolidation and effusions at the lung bases. Assessment and Plan - Assessment (1) CHF (congestive heart failure) Code(s): I50.9 - Heart failure, unspecified Status: Acute - Plan 77-year-old female with history of valvular cardiomyopathy, CHF, history of valve repair surgery January 2018, hypertension, presents with worsening shortness of breath. Outpatient echocardiogram showed EF of 20%. 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 -Pleural effusions small, unlikely needs thoracentesis -Continue diuresis with IV Lasix 40 mg bid with KCl replacement -Continue beta-urban -Monitor I's and O's, daily weights -Continue O2 as needed, patient does not wear oxygen at home, may need walk test upon discharge if unable to wean -Cardiology consulted, appreciate recommendations, will likely need several days of diuresis in the hospital -Consider consult to Dr. Baires on Wednesday or Wednesday for AICD placement next week Hypertension: chronic, BP well controlled -continue home medications -Monitor BP, adjust antihypertensives as needed Hx of Hyperglycemia: controlled with diet -Blood glucose has been less than 100 -Continue diet control, outpatient f/up DVT Prophylaxis: Heparin sq Discharge Planning: Likely needs additional 2-3 days of IV diuresis per cardiology. (1) CHF (congestive heart failure) Qualifiers: Heart failure type: unspecified Heart failure chronicity: acute Qualified Code(s): I50.9 - Heart failure, unspecified
--- NOTE | 2018-04-22 20:57 | MB ---
cc: Ranulfo Baires MD DATE: 04/22/2018 REASON FOR CONSULTATION: Heart failure. HISTORY OF PRESENT ILLNESS: Mrs. Alberto is a 77-year-old female with severe mitral and tricuspid regurgitation, congestive heart failure, cardiomyopathy, ejection fraction is under 20%. He is on optimal medical treatment. Right-sided pressure is high. High risk for sudden , on optimal medical treatment for . Medications cannot be up titrated because of blood pressure, admitted to the emergency room due to uncompensated heart failure. The patient was seen by Dr. Hudson. IV diuretic was initiated. I was consulted for evaluation and management. The chart was reviewed. The patient was evaluated. ALLERGIES: NONE. SOCIAL HISTORY: Negative for smoking, for any drinking. FAMILY HISTORY: Noncontributory to her current medical condition. MEDICATIONS AT HOME: She was on: 1. Metoprolol. 2. Lasix. Currently in the hospital, IV Lasix was added as well as potassium. REVIEW OF SYSTEMS: She referred shortness of breath on minimal activity. No chest pain, no chest discomfort. PHYSICAL EXAMINATION: GENERAL: Alert, fully oriented. VITAL SIGNS: Blood pressure 95/63, pulse 80, respiratory rate 18. LUNGS: Ventilated. CARDIOVASCULAR: S1, S2. No gallop. No murmur. ABDOMEN: Soft. No mass. EXTREMITIES: No edema. LABORATORY DATA: Electrocardiogram currently show sinus rhythm, a interventricular conduction delay, QRS around 130 milliseconds. LABORATORY DATA: Hemoglobin is 12.1, white blood cell 6.4. Potassium is 4.2, creatinine 0.86. BNP around 2100. ASSESSMENT AND RECOMMENDATIONS: Mrs. Alberto was admitted on uncompensated heart failure. She has shortness of breath at baseline. She can barely walk a block. She is heart failure class III basically on a good day. JENNIE inhibitor and tracer cannot be added because blood pressure at the office is in the 80s also. She is followed in the office by Dr. Saldana. At this point, my recommendation is to stabilize the patient. If necessary, milrinone should be used because of the right-sided pressure and heart failure. When the patient is stable, I will evaluate for possible biventricular pacer defibrillator. Case extensively discussed with the patient. We will be following her when necessary. Extensively discussed with the patient and Dr. Hudson. Dr. Hudson will follow her up to Wednesday and I will reevaluate her on Wednesday for possible device. MD TEZ Tamayo/edward/rubens , 06:08 PM , 06:17 PM
--- NOTE | 2018-04-23 09:27 | ECG ---
Date Performed: 04/22/2018 Time Performed: 00:55:29 PTAGE: 77 years EKG: Sinus rhythm WITH OCCASIONAL SUPRAVENTRICULAR PREMATURE COMPLEXES MODERATE INTRAVENTRICULAR CONDUCTION DELAY MINI MAL ST DEPRESSION ABNORMAL QRS-T ANGLE ABNORMAL ECG PREVIOUS TRACING : 04/21/2018 16.33 DOCTOR: Leland Houston Interpretating Date/Time 04/23/2018 09:27:16
--- NOTE | 2018-04-23 09:30 | ECG ---
Date Performed: 04/21/2018 Time Performed: 14:47:23 PTAGE: 77 years EKG: Sinus rhythm WITH OCCASIONAL VENTRICULAR PREMATURE COMPLEXES LEFT BUNDLE BRANCH BLOCK ABNORMAL ECG PREVIOUS TRACING : 01/25/2018 06.09 DOCTOR: Leland Houston Interpretating Date/Time 04/23/2018 09:28:42
--- NOTE | 2018-04-23 09:30 | ECG ---
Date Performed: 04/21/2018 Time Performed: 16:33:24 PTAGE: 77 years EKG: Sinus rhythm LEFT BUNDLE BRANCH BLOCK ABNORMAL ECG PREVIOUS TRACING : 04/21/2018 14.47 DOCTOR: Leland Houston Interpretating Date/Time 04/23/2018 09:28:28
[2018-04-23] MEDS: Metoprolol Tartrate 25 MG Tablet PO SCH ×2 (10:38→20:22)
--- NOTE | 2018-04-23 14:59 | P.PN ---
Subjective Interval history: Follow up for CHF exacerbation. The patient was seen around 9:30am. She reports mild improvement overnight however still short of breath, worse with exertion. Lower extremity edema improving. O2 sat 93% on room air. Denies any chest pain or palpitations. Denies any other medical complaints at this time. Physical Exam Vital signs: Vital Signs 04/22/18 16:00 04/22/18 19:59 04/22/18 22:22 Temperature 98.9 F 97.7 F Pulse Rate 80 84 Respiratory Rate 18 16 Blood Pressure 95/63 L 93/57 L Pulse Oximetry 98 94 L 95 04/22/18 23:26 04/23/18 04:00 04/23/18 08:00 Temperature 98 F 98.7 F 97.5 F L Pulse Rate 89 98 H 95 H Respiratory Rate 20 18 16 Blood Pressure 94/62 L 107/63 98/66 L Pulse Oximetry 99 98 93 L 04/23/18 08:32 Temperature Pulse Rate Respiratory Rate Blood Pressure Pulse Oximetry 98 Intake & Output 04/22/18 04/23/18 04/23/18 18:59 06:59 18:59 Other: # Voids 3 Narrative: GENERAL: Well-nourished, well-developed pleasant elderly female patient in [facility]. SKIN: Warm and dry. No rash. HEENT: Normocephalic. Atraumatic. Pupils equal and round. Mucous membranes pink and moist. NECK: Supple. Trachea midline. CARDIOVASCULAR: Regular rate and rhythm. 1/6 systolic murmur noted. RESPIRATORY: No accessory muscle use. Faint crackles at bilateral bases. Breath sounds equal bilaterally. GASTROINTESTINAL: Abdomen soft, non-tender, nondistended. Normoactive bowel sounds x4. MUSCULOSKELETAL: No obvious deformities. Trace bilateral lower extremity edema. NEUROLOGICAL: Awake and alert. No obvious cranial nerve deficits. Motor grossly within normal limits. Moving all extremities spontaneously. Normal speech. PSYCHIATRIC: Appropriate mood and affect; insight and judgment normal. Results - Labs CBC & Chem 7: 04/22/18 07:06 04/22/18 07:06 - Imaging Chest X-Ray 04/21/18 12:01 CONCLUSION: Right greater than left consolidation and effusions at the lung bases. Assessment and Plan - Assessment (1) CHF (congestive heart failure) Code(s): I50.9 - Heart failure, unspecified Status: Acute - Plan 77-year-old female with history of valvular cardiomyopathy, CHF, history of valve repair surgery January 2018, hypertension, presents with worsening shortness of breath. Outpatient echocardiogram showed EF of 20%. 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 -Pleural effusions small, unlikely needs thoracentesis -Continue diuresis with IV Lasix 40 mg bid with KCl replacement -Continue beta-urban -Monitor I's and O's, daily weights -Continue O2 as needed, patient does not wear oxygen at home, may need walk test upon discharge if unable to wean -Cardiology consulted, appreciate recommendations, will likely need several days of diuresis in the hospital -Consulted Dr. Baires for AICD placement, likely on Thursday 04/26 Hypertension: chronic, BP well controlled -continue home medications -Monitor BP, adjust antihypertensives as needed Hx of Hyperglycemia: controlled with diet -Blood glucose has been less than 100 -Continue diet control, outpatient f/up DVT Prophylaxis: Heparin sq Discharge Planning: Likely needs additional 2-3 days of IV diuresis per cardiology. Plan for AICD placement tentatively on Wednesday. (1) CHF (congestive heart failure) Qualifiers: Heart failure type: unspecified Heart failure chronicity: acute Qualified Code(s): I50.9 - Heart failure, unspecified
[2018-04-23] MEDS: Heparin - SQ 10,000 UNITS/ML Vial SQ SCH ×2 (16:11→20:26)
[2018-04-23] MEDS ORDERED: Acetaminophen 325 MG Tablet PO PRN (19:00)
[2018-04-23] MEDS: Ibuprofen 400 MG Tablet PO PRN (19:27)
[2018-04-24] MEDS: Metoprolol Tartrate 25 MG Tablet PO SCH ×2 (09:58→21:14)
[2018-04-24] MEDS: Heparin - SQ 10,000 UNITS/ML Vial SQ SCH ×2 (10:07→21:01)
--- NOTE | 2018-04-24 14:44 | P.PN ---
Subjective Interval history: Follow-up for CHF exacerbation. Patient reports continued improvement, denies any significant shortness of breath while at rest. She is ambulate into the bathroom with minimal dyspnea on exertion. Denies any chest pain. Lower extremity swelling much improved, almost resolved. Patient's blood pressure is currently in the 80s/50s, the patient does endorse some lightheadedness. Denies any other medical complaints at this time. Physical Exam Vital signs: Vital Signs 04/23/18 16:00 04/23/18 20:00 04/23/18 23:15 Temperature 97.5 F L 97.4 F L 98 F Pulse Rate 101 H 100 H 90 Respiratory Rate 16 18 16 Blood Pressure 96/65 L 91/53 L 92/57 L Pulse Oximetry 96 95 95 04/24/18 03:23 04/24/18 07:23 04/24/18 09:03 Temperature 97.6 F 97.6 F Pulse Rate 99 H 89 Respiratory Rate 16 16 Blood Pressure 103/74 90/54 L Pulse Oximetry 97 97 97 04/24/18 12:00 Temperature 98.2 F Pulse Rate 80 Respiratory Rate 16 Blood Pressure 84/53 L Pulse Oximetry 97 Narrative: GENERAL: Well-nourished, well-developed pleasant elderly female patient in [facility]. SKIN: Warm and dry. No rash. HEENT: Normocephalic. Atraumatic. Pupils equal and round. Mucous membranes pink and moist. NECK: Supple. Trachea midline. CARDIOVASCULAR: Regular rate and rhythm. 1/6 systolic murmur noted. RESPIRATORY: No accessory muscle use. Faint crackles at bilateral bases. Breath sounds equal bilaterally. GASTROINTESTINAL: Abdomen soft, non-tender, nondistended. Normoactive bowel sounds x4. MUSCULOSKELETAL: No obvious deformities. Trace bilateral lower extremity edema around the ankles. NEUROLOGICAL: Awake and alert. No obvious cranial nerve deficits. Motor grossly within normal limits. Moving all extremities spontaneously. Normal speech. PSYCHIATRIC: Appropriate mood and affect; insight and judgment normal. Results - Labs CBC & Chem 7: 04/22/18 07:06 04/22/18 07:06 - Imaging Chest X-Ray 04/21/18 12:01 CONCLUSION: Right greater than left consolidation and effusions at the lung bases. Assessment and Plan - Assessment (1) CHF (congestive heart failure) Code(s): I50.9 - Heart failure, unspecified Status: Acute - Plan 77-year-old female with history of valvular cardiomyopathy, CHF, history of valve repair surgery January 2018, hypertension, presents with worsening shortness of breath. Outpatient echocardiogram showed EF of 20%. 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 -Pleural effusions small, unlikely needs thoracentesis -Continue diuresis with IV Lasix 40 mg bid with KCl replacement -Continue beta-urban -Monitor I's and O's, daily weights -Continue O2 as needed, patient does not wear oxygen at home, may need walk test upon discharge if unable to wean -Cardiology consulted, appreciate recommendations, will likely need several days of diuresis in the hospital -Consulted Dr. Baires for AICD placement, likely on Thursday 04/26 -04/24 Patient hypotensive today with BP 80s/50s, will decrease Lasix to 20 mg twice a day, and placed hold parameters on metoprolol Hypertension: chronic, BP well controlled -continue home medications -Monitor BP, adjust antihypertensives as needed Hx of Hyperglycemia: controlled with diet -Blood glucose has been less than 100 -Continue diet control, outpatient f/up DVT Prophylaxis: Heparin sq Discharge Planning: Likely needs additional 2-3 days of diuresis per cardiology. Plan for AICD placement tentatively on Wednesday. (1) CHF (congestive heart failure) Qualifiers: Heart failure type: unspecified Heart failure chronicity: acute Qualified Code(s): I50.9 - Heart failure, unspecified
[2018-04-24] MEDS: Ibuprofen 400 MG Tablet PO PRN (18:33)
[2018-04-25 05:57] LABS: Calcium 8.6 mg/dL (8.5-10.1); Carbon Dioxide 26.9 meq/L (21.0-32.0)
[2018-04-25] MEDS: Heparin - SQ 10,000 UNITS/ML Vial SQ SCH ×2 (09:50→20:53)
[2018-04-25] MEDS: Metoprolol Tartrate 25 MG Tablet PO SCH ×2 (09:51→20:53)
--- NOTE | 2018-04-25 12:09 | P.PN ---
Subjective Interval history: Follow-up for CHF exacerbation. Patient reports continued improvement. Denies any significant shortness of breath while at rest, does still have some mild dyspnea with exertion. Has continued orthopnea. Lower extremity swelling almost resolved. She states she has lost 20lbs since her arrival. She does also report few episodes of palpitations overnight, however no correlating events recorded on telemetry. Denies any significant lightheadedness today. Denies any other medical complaints at this time. Physical Exam Vital signs: Vital Signs 04/24/18 16:00 04/24/18 20:02 04/24/18 20:24 Temperature 97.8 F Pulse Rate 86 Respiratory Rate 16 20 Blood Pressure 89/52 L Pulse Oximetry 96 95 04/24/18 21:03 04/25/18 00:00 04/25/18 03:31 Temperature 98 F 98 F Pulse Rate 88 86 72 Respiratory Rate 17 16 17 Blood Pressure 97/58 L 92/55 L 95/60 L Pulse Oximetry 95 95 95 04/25/18 08:00 04/25/18 11:30 Temperature 98.3 F 98.2 F Pulse Rate 106 H 90 Respiratory Rate 15 16 Blood Pressure 95/62 L 98/66 L Pulse Oximetry 95 96 Intake & Output 04/24/18 04/25/18 04/25/18 18:59 06:59 18:59 Intake Total 600 / 600 244 / 244 Output Total 3 / 3 Balance 597 / 597 244 / 244 Weight 68.1 kg Intake: Oral 600 / 600 244 / 244 Output: Urine 3 / 3 Other: Date of Last Bowel Movement 04/23/18 Narrative: GENERAL: Well-nourished, well-developed pleasant elderly female patient in [facility]. SKIN: Warm and dry. No rash. HEENT: Normocephalic. Atraumatic. Pupils equal and round. Mucous membranes pink and moist. NECK: Supple. Trachea midline. CARDIOVASCULAR: Regular rate and rhythm. 1/6 systolic murmur noted. RESPIRATORY: No accessory muscle use. Lungs clear to auscultation today. Breath sounds equal bilaterally. GASTROINTESTINAL: Abdomen soft, non-tender, nondistended. Normoactive bowel sounds x4. MUSCULOSKELETAL: No obvious deformities. Bilateral lower extremity edema resolved. NEUROLOGICAL: Awake and alert. No obvious cranial nerve deficits. Motor grossly within normal limits. Moving all extremities spontaneously. Normal speech. PSYCHIATRIC: Appropriate mood and affect; insight and judgment normal. Results - Labs CBC & Chem 7: 04/22/18 07:06 04/25/18 04:53 Laboratory Results - last 24 hr 04/25/18 04:53 Sodium 138 Potassium 4.0 Chloride 104 Carbon Dioxide 26.9 Anion Gap 7 BUN 20 H Creatinine 0.87 Estimated GFR 63 L Random Glucose 104 Calcium 8.6 - Imaging Chest X-Ray 04/21/18 12:01 CONCLUSION: Right greater than left consolidation and effusions at the lung bases. Assessment and Plan - Assessment (1) CHF (congestive heart failure) Code(s): I50.9 - Heart failure, unspecified Status: Acute - Plan 77-year-old female with history of valvular cardiomyopathy, CHF, history of valve repair surgery January 2018, hypertension, presents with worsening shortness of breath. Outpatient echocardiogram showed EF of 20%. 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 -Pleural effusions small, unlikely needs thoracentesis -Continue diuresis with IV Lasix with KCl replacement -Continue beta-urban -Monitor I's and O's, daily weights -Continue O2 as needed, patient does not wear oxygen at home, O2 sat now stable on room air -Cardiology consulted, appreciate recommendations, will likely need several days of diuresis in the hospital -Consulted Dr. Baires for AICD placement, likely on Thursday 04/26 -Patient hypotensive on 04/24 with BP 80s/50s, decreased Lasix to 20 mg twice a day, and placed hold parameters on metoprolol -Symptoms much improved Hypertension: chronic, BP well controlled -continue home medications -Monitor BP, adjust antihypertensives as needed Hx of Hyperglycemia: controlled with diet -Blood glucose has been less than 100 -Continue diet control, outpatient f/up DVT Prophylaxis: Heparin sq Discharge Planning: Awaiting repeat evaluation by cardiology to consider biventricular pacer/ defibrillator this week. (1) CHF (congestive heart failure) Qualifiers: Heart failure type: unspecified Heart failure chronicity: acute Qualified Code(s): I50.9 - Heart failure, unspecified
[2018-04-26] MEDS: Metoprolol Tartrate 25 MG Tablet PO SCH ×2 (10:34→22:19)
[2018-04-26] MEDS: Heparin - SQ 10,000 UNITS/ML Vial SQ SCH ×2 (10:34→22:18)
[2018-04-26] MEDS ORDERED: Phenylephrine/NS 1000 MCG/10ML Syringe IV.PUSH ONE (12:00)
[2018-04-26] MEDS ORDERED: Lidocaine PF 1% Inj 5 ML Syringe INFILTRATN ONE (12:00)
--- NOTE | 2018-04-26 13:26 | P.PN ---
Subjective Interval history: Patient is seen lying in bed watching TV. She is waiting to talk to cardiology about planned AICD placement. She denies any chest pain or palpitations. Denies any dizziness or shortness of breath. No nausea vomiting or diarrhea. Also tells me that the swelling in her legs is much better and she feels like they are now back to normal. Physical Exam Vital signs: Vital Signs 04/25/18 15:24 04/25/18 20:00 04/25/18 20:51 Temperature 97.6 F Pulse Rate 89 95 H 98 H Respiratory Rate 12 16 Blood Pressure 97/62 L 97/60 L Pulse Oximetry 95 96 95 04/25/18 23:50 04/26/18 02:05 04/26/18 05:40 Temperature Pulse Rate 103 H 91 H 100 H Respiratory Rate 16 15 Blood Pressure 102/66 98/64 L Pulse Oximetry 96 95 04/26/18 08:00 04/26/18 11:40 04/26/18 12:50 Temperature 98.1 F 97.9 F Pulse Rate 109 H 86 93 H Respiratory Rate 14 14 Blood Pressure 108/68 87/54 L Pulse Oximetry 94 L 95 Intake & Output 04/25/18 04/26/18 04/26/18 18:59 06:59 18:59 Intake Total 679 / 679 252 / 252 Output Total 900 / 900 900 / 900 600 / 600 Balance -221 / -221 -648 / -648 -600 / -600 Weight 67.6 kg Intake: Oral 679 / 679 252 / 252 Output: Urine 900 / 900 900 / 900 600 / 600 Other: Date of Last Bowel Movement 04/25/18 04/25/18 Narrative: GENERAL: Well-nourished, well-developed adult female in no obvious distress. SKIN: Warm and dry. HEAD: Atraumatic. Normocephalic. CARDIOVASCULAR: Regular rate and rhythm. murmur RESPIRATORY: No accessory muscle use. Clear to auscultation. Breath sounds equal bilaterally. GASTROINTESTINAL: Abdomen soft, non-tender, non-distended. Positive bowel sounds. MUSCULOSKELETAL: Extremities without clubbing, cyanosis, or edema. No obvious deformities. NEUROLOGICAL: Awake and alert. No obvious cranial nerve deficits. Motor grossly within normal limits. Normal speech. PSYCHIATRIC: Appropriate mood and affect; insight and judgment good. Results - Labs CBC & Chem 7: 04/22/18 07:06 04/25/18 04:53 Assessment and Plan - Assessment (1) CHF (congestive heart failure) Code(s): I50.9 - Heart failure, unspecified Status: Acute - Plan 77-year-old female with history of valvular cardiomyopathy, CHF, history of valve repair surgery January 2018, hypertension, presents with worsening shortness of breath. Outpatient echocardiogram showed EF of 20%. 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 -Pleural effusions small, unlikely needs thoracentesis -Continue diuresis with IV Lasix with KCl replacement; Patient hypotensive on 04/24 with BP 80s/50s, decreased Lasix to 20 mg twice a day. -Continue beta-urban w/ hold parameters -Monitor I's and O's, daily weights -Continue O2 as needed, patient does not wear oxygen at home, O2 sat now stable on room air -Cardiology consulted, appreciate recommendations, will likely need several days of diuresis in the hospital -Consulted Dr. Baires for AICD placement, likely on Thursday 04/26 Hypertension: chronic, BP well controlled -continue home medications -Monitor BP, adjust antihypertensives as needed Hx of Hyperglycemia: controlled with diet -Blood glucose has been less than 100 -Continue diet control, outpatient f/up DVT Prophylaxis: Heparin sq Discharge Planning: Awaiting repeat evaluation by cardiology to consider biventricular pacer/ defibrillator this week. (1) CHF (congestive heart failure) Qualifiers: Heart failure type: unspecified Heart failure chronicity: acute Qualified Code(s): I50.9 - Heart failure, unspecified
[2018-04-26] MEDS ORDERED: Heparin/NS PF Inj 500 ML ONE (18:57)
[2018-04-26] MEDS ORDERED: Sodium Chlor 0.9% Inj 250 ML ONE (19:12)
--- NOTE | 2018-04-26 19:31 | CATHPROC ---
[employer] HIS Report Study Information Study Number Admission Scheduled Start Study Start [id number] Apr 21 2018 7:24PM 04/26/2018 Apr 26 2018 6:20PM [place] [facility] Cath Endovascular Study Admit Source Facility Department Emergency department [facility] - Manager Implementation Physician and Clinical Staff Initial Ranulfo Donnelly Hearth Feeder Kobe An,RT(R) Other Anesthesia, MANAGER MECHANICAL Other Babita Reese RN Other Carolyne Prasad BSN Recorder Yani Guillermo RN Scrub Leonor Freeman,RT(R) TECH2 Equipment Time Spanish Interpreter/Translator Description Size Mfg Part Number Used/Scraped [id number] 18:22 [email or web address] BLANKET,WARM AIR CCL * Used *[id number] 18:22 [email or web address] PACK, CCL CUSTOM * Used *[id number] 18:22 [email or web address] PACER GARCIA, LIMB * 2530 *[id number] Used [id number] 18:22 [employer] CATHETER, JSN, QUAD FR 5 Used *[id number] 18:22 [employer] CATHETER, JSN, QUAD FR 5 Used *[id number] 18:22 [employer] CATHETER, JSN, QUAD FR 5 Used *[id number] 18:22 [employer] CATHETER, JSN, QUAD FR 5 Used *[id number] 18:22 [employer] SHEATH, EPS, FR5 FAST CATH FR 5 Used *[id number] 18:22 [employer] SHEATH, EPS, FR5 FAST CATH FR 5 Used *[id number] 18:22 [employer] SHEATH, EPS, FR5 FAST CATH FR 5 Used *[id number] [id number] 18:22 [employer] SHEATH, EPS, FR6 FAST CATH FR 6 Used *[id number] History: Allergies Allergy Reaction No Known Allergies History: Risk Factors Hypertension Previous Heart Failure Yes Yes Chronic Lung Disease Labs Hgb (g/dl) Hct (%) RBC (MIL/MM3) WBC (l/cumm) Platelets (thousands) 11.60-17.00 35.00-51.00 4.00-5.90 4.00-11.00 150.00-450.00 12.1 36.8 4.3 6.4 245 Glucose (mg/dl) BUN (mg/dl) Creatinine (mg/dl) BUN:Creatinine (1:x) 74.00-106.00 7.00-18.00 0.50-1.30 10.00-20.00 104 20 0.9 22.2 Na (meq/l) K (meq/l) 136.00-145.00 3.50-5.10 138 4 Medication Medication Total Dose (Bolus/Oral) Medication Total Dosage/Unit 1% XYLOCAINE 20 mL Medications (Bolus/Oral) Medication Time Given Dosage/Unit Administered By Reason 1% XYLOCAINE 04/26/2018 7:15:38 PM 20 mL Ranulfo Baires 20 mL 1% XYLOCAINE given in lab by Ranulfo Baires in Right Groin via Subcutaneous. Medication (Drip) Medication Time Given Dosage/Unit Concentration/Unit Diluent (ml) Solution ANCEF 04/26/2018 7:16:26 PM 2 g 2 g ANCEF given in lab by Anesthesia, MANAGER MECHANICAL via Peripheral IV. Ordered by Ranulfo Baires. Reason: As pe r physicians verbal order. VANCOMYCIN DRIP 04/26/2018 7:16:10 PM 1 g 1 g VANCOMYCIN DRIP given in lab by Anesthesia, MANAGER MECHANICAL via Peripheral IV. Ordered by Ranulfo Baires. [place] son: As per physicians verbal order. Initial Case Assessment Cardiovascular HR NIBP 101 122/77 Edema Present Skin color Skin None Normal Warm Dry Circulatory - Right Pulses Dorsalis Pedis 1 Scale (0,1,2,3,4,d) Circulatory - Left Pulses Dorsalis Pedis 1 Scale (0,1,2,3,4,d) Circulatory - Lower Extremities Color Lower Right Color Lower Left Normal Normal Neurological State Oriented to time-place- Alert Moves all extremities person Respiration - General Respiration Rate SpO2 (%) (B/min) 16 94 Chronological Log Time Study Chronological Log 18:39:24 Patient arrived via Bed. 18:39:25 Patient Name, D.O.B, / Armband Verified By R.N. 18:39:26 Consent signed by the physician and the patient and verified by the Manager Implementation staff. 18:39:26 Pre-op and post- op instructions given; patient acknowledges understanding of instructions. 18:39:27 Verbal Stimulation=2 Physical Stimulation=2 Airway=2 Respiration=2 TOTAL=8. (0=absent, 1=li mited, 2=present) 18:39:28 Anesthesia at bedside. Assumes care of patient. Liz 18:39:36 Patient has been NPO for More than 6Hrs. 18:39:37 Skin Breakdown- none per pt 18:39:39 Patient Warmer Placed on the Table. 18:39:40 Disposable Defibrillator Pads Placed On Patient. 18:39:42 [place] Prominences Protected 18:39:43 A # 20 IV was noted in the Antecubital (left). Grade = 0 0.9% NaCl @ KVO 18:39:44 A # 20 IV was noted in the Antecubital (right). Grade = 0 0.9% NaCl @ KVO 18:39:45 History and physical on the chart. Assessment: Initial Case, PE=394 BPM, TMMX=116/77 mmhg, Edema=None, Color=Normal, Skin = Warm, Dry Right Pulses: Alexei Ped=1 Left Pulses: Alexei Ped=1 18:54:13 Lower Right Extremities: Color=Normal Lower Left Extremities: Color=Normal Neurological: State=Alert, Ox3, ACEVES Respiration: Resp=16 B/min, SpO2=94 % 18:55:32 Table restraints applied according to hospital policy 19:00:35 Reference ECG taken 19:00:45 Bilateral groins prepped with 2% chlorhexidine, and draped after a 3 minute waiting time. 19:03:18 MD arrived. Time Out. Correct patient, procedure, procedure equipment, site and side verified with physicia n present. Time 19:15:00 concurred by MD, individual staff and MANAGER MECHANICAL. Time Out #2 - Consents verified, patient in correct position, all results are labled and displa yed, safety precautions 19:15:24 taken, antibiotics administered. Time out concurred by MD, individual staff and MANAGER MECHANICAL in procedu re 19:15:35 Case Start 19:15:38 20 mL 1% XYLOCAINE given in lab by Ranulfo Baires in Right Groin via Subcutaneous. 1 g VANCOMYCIN DRIP given in lab by Anesthesia, MANAGER MECHANICAL via Peripheral IV. Ordered by Brant Baires Reason: As per 19:16:10 physicians verbal order. 19:16:22 Vascular access was obtained in the Fem Vein (right). 2 g ANCEF given in lab by Anesthesia, MANAGER MECHANICAL via Peripheral IV. Ordered by Ranulfo Baires. Reason: As per physicians 19:16:26 verbal order. 19:16:32 Vascular access was obtained in the Fem Vein (right). 19:16:44 Vascular access was obtained in the Fem Vein (right). 19:16:47 Vascular access was obtained in the Fem Vein (right). 19:16:52 A SHEATH, EPS, FR5 FAST CATH FR 5 was advanced into the Fem Vein (right) using the Modified Seldinger technique. 19:16:58 A SHEATH, EPS, FR5 FAST CATH FR 5 was advanced into the Fem Vein (right) using the Modified Seldinger technique. 19:17:01 A SHEATH, EPS, FR5 FAST CATH FR 5 was advanced into the Fem Vein (right) using the Modified Seldinger technique. 19:17:03 A SHEATH, EPS, FR6 FAST CATH FR 6 was advanced into the Fem Vein (right) using the Modified Seldinger technique. A CATHETER, JSN, QUAD FR 5 was advanced vis Fem Vein (right) and placed in the CS. Placement wa s visually 19:18:00 confirmed under fluoroscopy. A CATHETER, JSN, QUAD FR 5 was advanced vis Fem Vein (right) and placed in the HIS. Placement w as visually 19:18:17 confirmed under fluoroscopy. A CATHETER, JSN, QUAD FR 5 was advanced vis Fem Vein (right) and placed in the RVA. Placement w as visually 19:18:27 confirmed under fluoroscopy. A CATHETER, JSN, QUAD FR 5 was advanced vis Fem Vein (right) and placed in the HRA. Placement w as visually 19:18:39 confirmed under fluoroscopy. 19:23:45 EPS in progress 19:28:47 EPS complete. 19:29:10 All catheters but CS lead removed without difficulty. 19:29:48 Sheath(s) left in place, secured, 0.9ns connected and will be removed in Holding Area. 19:30:12 Case End (Physician broke scrub) 19:30:14 No case complications noted. 19:30:15 Cine recording checked. 19:30:20 NOTE: This patient is undergoing an additional procedure while still in the Cardiac Cath La b. 19:30:21 2% CHLORHEXIDINE GLUCONATE WASH AND NASAL SWIPE DONE PRIOR TO PROCEDURE. 20:59:08 EP Procedure was performed. EPS End Study - Contrast Media Used In Study Contrast Total Opened (mL) Total Used (mL) Total Wasted (mL) Omnipaque 0 0 0 End Study - Maximum Contrast Load Max Contrast Load (mL) 377.5 End Study - Radiation Exposure Fluoro Time (minutes) 1.8 End Study - Patient Disposition Complications Transferred To Interventional Outcome No Manager Implementation Holding successful
[2018-04-26] MEDS ORDERED: fentaNYL Citrate Inj 100 MCG/2 ML Ampul ONE (19:55)
--- NOTE | 2018-04-26 20:58 | CATHPROC ---
Patient Name: Juana Alberto Study #: [id number] Initial MD: Ranulfo Baires Date of : 1940 Study Date: 04/26/2018 Cardiac Catheterization Report 04/26/2018 8:58:18 PM Financial #: [id number] 1 of 7 Patient Name: Juana Alberto Study #: [id number] Initial MD: Ranulfo Baires Date of : 1940 Study Date: 04/26/2018 Entire Case Report Patient Information Patient Name Juana Alberto Date of 1940 Age 77 years Financial # [id number] Gender F AlternateID Lab Number 2 Accession # Room Number Height (in) 68.0 Height (cm) 172.7 BSA 1.80 Weight (lbs) 148.7 Weight (kg) 67.6 Patient Address/Phone Number Home Address [facility] Home Phone Number [address] [place] [address] Study Information Study Number Scheduled Start Study Start [id number] 04/26/2018 Apr 26 2018 7:32PM Referring Institution Admit Source Facility Department 1 Other [facility] - Mechanical Test Engineer Physician and Clinical Staff Initial Ranulfo Donnelly Hydraulic Jack Mechanic Kobe An,RT(R) Other Anesthesia, MARKET GARDEN WORKER Recorder Yani Guillermo,AFSHAN Scrub Leonor Freeman,RT(R) TECH2 Procedures Performed Procedure Location (Site) Vessel Name Lead Insertion Venogram Coronary Sinus Other 04/26/2018 8:58:18 PM Financial #: [id number] 2 of 7 Patient Name: Juana Alberto Study #: [id number] Initial MD: Ranulfo Baires Date of : 1940 Study Date: 04/26/2018 Equipment Time Imaging Technologist Description Size Mfg Part Number Used/Scraped [id number] 20:12 [employer] WIRE, ASAHI PROWATER 180CM 180CM Used *[id number] 04249-78 20:21 [employer] WIRE, ASAHI PROWATER 180CM 180CM Used *[id number] 20:28 BIOTRONIK DEFIBRILLATOR, ILIVIA 7 HF-T QP [id number] Used 20:02 BIOTRONIK LEAD, PLEXA PRO-MRI SD 65/18 65 [id number] Used 20:05 BIOTRONIK LEAD, SOLIA 60 53 PRO MRI * [id number] Used DERMABOND, ADHESIVE SKIN [id number] 19:36 CORDIS/PACER * Used GLUE MINI *[id number] 19:36 [employer] BLANKET,WARM AIR CCL * Used *[id number] TP-1103 19:36 [employer] SUTURE, STRIP PLUS 1/2" * Used *[id number] 19:36 MEDLINE PACER GARCIA, LIMB * 2530 *[id number] Used [id number] 19:36 MEDLINE PACER PACK, PACER CUSTOM * Used *[id number] 20:04 [employer] PACER SAFE SHEATH, FR7, 13CM FR 7 CLS-1007 Used 20:04 [employer] PACER SAFE SHEATH, FR8, 13CM FR 8 CLS-1008 Used 20:04 [employer] PACER SAFE SHEATH, FR9, 13CM FR 9 CLS-1009 Used 19:46 Needle Sponge Count 2 22 Used 19:46 Needle Sponge Count 20 200 Used 19:46 Needle Sponge Count 6 6 Used 20:19 [employer]COMED OMNIPAQUE, 300 MG, 50ML 50ML [id number] Used SUTURE, 0 ETHIBOND [CT1] (CX21D), 8pk SUTURE, 2-0 VICRYL [CT1] ([id number]) SUTURE, 2-0 VICRYL [CT1] (FBZ633M) [id number] 20:11 [facility] [employer] MEDICAL LIVEWIRE, QUAD, MED SWEEP FR 6 Used *[id number] [facility] PAD, ELECTROSURGICAL 19:36 * [id number] *[id number] Used SURGICAL GROUNDING ORANGE LEAD, ATTAIN PERFORMA 20:22 VITATRON MEDTRONIC 88CM 4398-88CM Used STRAIGHT, 88CM [id number] 19:36 [employer] EDUARDO. / * Used *33686 Equipment Model, Serial, Lot Number and Expiration Data Description Model Number Serial Number Lot Number Expiration Date DEFIBRILLATOR, ILIVIA 7 HF-T QP [id number] 03-12-2019 LEAD, ATTAIN PERFORMA 4398 [id number] 01-26-2020 STRAIGHT, 88CM LEAD, PLEXA PRO-MRI SD 18 [id number] 02-11-2020 LEAD, SOLIA 60 53 PRO MRI [id number] 01-11-2020 04/26/2018 8:58:18 PM Financial #: [id number] 3 of 7 Patient Name: Juana Alberto Study #: [id number] Initial MD: Ranulfo Baires Date of : 1940 Study Date: 04/26/2018 Insurance Information Insurance Payor Private Health Insurance Third Republican Third Republican Number [employer]INA [employer]OOK O [employer] History: Allergies Allergy Reaction No Known Allergies Medication Medication Total Dose (Bolus/Oral) Medication Total Dosage/Unit 2% XYLOCAINE 50 mL Medications (Bolus/Oral) Medication Time Given Dosage/Unit Administered By Reason 2% XYLOCAINE 04/26/2018 7:58:23 PM 50 mL Ranulfo Baires 50 mL 2% XYLOCAINE given by Ranulfo Baires in Left upper chest via Subcutaneous. 04/26/2018 8:58:18 PM Financial #: [id number] 4 of 7 Patient Name: Juana Alberto Study #: [id number] Initial MD: Ranulfo Baires Date of : 1940 Study Date: 04/26/2018 Final Case Assessment Cardiovascular HR Rhythm NIBP Chest Pain 116 st 102/57 0 Edema Present Skin color Skin None Normal Warm Dry Circulatory - Right Pulses Dorsalis Pedis Radial 1 2 Scale (0,1,2,3,4,d) Circulatory - Left Pulses Dorsalis Pedis Radial 1 1 Scale (0,1,2,3,4,d) Circulatory - Lower Extremities Color Lower Right Color Lower Left Normal Normal Neurological State Drowsy Moves all extremities Respiration - General Respiration Rate SpO2 (%) O2 (lpm) (B/min) 16 93 4 Chronological Log Time Study Chronological Log 19:30:00 Initial procedure has been completed. Beginning additional procedure. 19:30:09 NOTE: This patient is undergoing an additional procedure while still in the Cardiac Cath La b. 19:30:19 Anesthesia remains at bedside. Assuming care of patient. 19:32:41 Bovie ground pad applied to: Right thigh 19:33:08 Upper Chest Prepped Times Two. 19:45:46 Reference ECG taken First Sponge And Instrument Count Done by Leonor Freeman, RT(R) TECH2. 19:45:55 Hypo's: 6, Sponges: 20, Bovie/scratch: 2 Sutures: 10, Blades: 1, Instruments: 26, Syveck Patches: ~SYVECK PATCH~ 04/26/2018 8:58:18 PM Financial #: [id number] 5 of 7 Patient Name: Juana Alberto Study #: [id number] Initial MD: Ranulfo Baires Date of : 1940 Study Date: 04/26/2018 Time Out. Correct patient, procedure, procedure equipment, site and side verified with physicia n present. Time 19:58:00 concurred by MD, individual staff and MARKET GARDEN WORKER. Time Out #2 - Consents verified, patient in correct position, all results are labled and displa yed, safety precautions 19:58:13 taken, antibiotics administered. Time out concurred by MD, individual staff and MARKET GARDEN WORKER in procedu re 19:58:19 Case Start 19:58:23 50 mL 2% XYLOCAINE given by Ranulfo Baires in Left upper chest via Subcutaneous. 20:00:00 Vascular access was obtained in the Subclav. Vein (Lft. 20:01:04 Vascular access was obtained in the Subclav. Vein (Lft. 20:01:12 Surgical Incision Made. 20:01:17 A pocket was created at the L Upper Chest. 20:03:23 A SAFE SHEATH, FR7, 13CM FR 7 was advanced into the Subclav. Vein (Lft using the Modified S eldinger technique. 20:04:15 A LEAD, PLEXA PRO-MRI SD 65/18 65 was inserted and positioned in the RV. 20:04:24 Lead placement verified under fluoroscopy 20:07:25 The RV lead impedance and threshold being tested. 20:09:40 The RV lead was sutured to the fascia. 20:12:04 A LEAD, SOLIA 60 53 PRO MRI * was inserted and positioned in the RA. 20:12:51 Lead placement verified under fluoroscopy 20:12:54 The Atrial lead impedance and threshold is being tested. 20:14:00 The Atrial lead was sutured to the fascia. A LIVEWIRE, QUAD, MED SWEEP FR 6 was advanced vis Subclav. Vein (Lft and placed in the CS. Plac ement was 20:16:15 visually confirmed under fluoroscopy. CS sheath inserted also. 20:18:51 The Coronary Sinus was manually injected with 5 cc's of contrast. OMNIPAQUE, 300 MG, 50ML 5 0ML used. 20:19:22 The previous wire was exchanged for a WIRE, ASAHI PROWATER 180CM 180CM. 20:21:01 The previous wire was exchanged for a 2nd WIRE, ASAHI PROWATER 180CM 180CM. 20:22:10 A LEAD, ATTAIN PERFORMA STRAIGHT, 88CM 88CM was inserted and positioned in the CS/LV. 20:25:52 Lead placement verified under fluoroscopy 20:26:25 The CS/LV lead impedance and threshold is being tested. 20:29:34 The CS/LV lead was sutured to the fascia. 20:31:41 Pocket flushed with antibiotic solution 20:34:13 A DEFIBRILLATOR, ILIVIA 7 HF-T QP was connected and placed in the pocket. Second Sponge And Instrument Count Done by Leonor Freeman, RT(R) TECH2. 20:36:42 Hypo's: 6, Sponges: 20, Bovie/scratch: 2 Sutures: 10, Blades: 1, Instruments: , Syveck Patches: ~SYVECK PATCH~ 20:39:27 Implant Procedure was performed. 20:39:36 A ICD Implant . (Dual) 20:40:15 PACU called. Spoke to Renard 20:40:46 Bedside Report will be given. 20:41:00 The pocket was closed. Final Sponge And Instrument Count Done by Leonor Freeman, RT(R) TECH2. 20:42:08 Hypo's: 6, Sponges: 20, Bovie/scratch: 2 Sutures: 10, Blades: 1, Instruments: 26, Syveck Patches: ~SYVECK PATCH~ 04/26/2018 8:58:18 PM Financial #: [id number] 6 of 7 Patient Name: Juana Alberto Study #: [id number] Initial MD: Ranulfo Baires Date of : 1940 Study Date: 04/26/2018 20:42:40 Steri-strips and a sterile dressing applied to site. 20:47:28 Case End (Physician broke scrub) 20:47:37 No case complications noted. 20:47:38 Cine recording checked. 20:47:40 Implantable Device card placed in patient's chart. 20:47:47 Defibrillator and ground pads removed. Skin intact. 20:49:56 CS lead and sheaths removed; pressure applied to access right groin access sites by DB. Assessment: Final Case, XH=964 BPM, Rhythm=st, OIWP=136/57 mmhg, Chest Pain=0, Edema=None, Col or=Normal, Skin = Warm, Dry Right Pulses: Alexei Ped=1, Radial=2 Left Pulses: Alexei Ped=1, Radial=1 20:54:40 Lower Right Extremities: Color=Normal Lower Left Extremities: Color=Normal Neurological: State=Drowsy, ACEVES Respiration: Resp=16 B/min, SpO2=93 %, O2=4 lpm 20:57:14 CICU called. Spoke to Xi 20:57:24 Bedside Report will be given. 20:57:47 A sling was placed on the affected arm. 21:00:00 Sterile dressing applied to right groin site. 21:05:59 Patient moved to stretcher End Study - Radiation Exposure Fluoro Time (minutes) 6.8 End Study - Patient Disposition Complications Transferred To Interventional Outcome No Telemetry Bed successful 04/26/2018 8:58:18 PM Financial #: [id number] 7 of 7
[2018-04-26] MEDS ORDERED: ceFAZolin 2 GM Premix Inj 2 GM/50 ML PIGGYBACK IV.SIG SCH (21:00)
--- NOTE | 2018-04-26 21:39 | XR ---
EXAM DATE: 04/26/2018 9:33 PM EDT AGE/SEX: 77 years / Female INDICATIONS: Post pacemaker placement. CLINICAL DATA: This is the patient's initial encounter. Patient reports that signs and symptoms have been present for 1 day and indicates a pain score of Nonresponsive. MEDICAL/SURGICAL HISTORY: Non-responsive. Non-responsive. COMPARISON: C, CHEST 1V SINGLE AP, 04/21/2018. . FINDINGS: A single AP portable erect view of the chest was obtained and again demonstrates the patient is statu s post median sternotomy. An artificial heart valve is again noted in place. There is been interval p lacement of a left subclavian transvenous pacer with defibrillator lead. There is no pneumothorax. Th e heart size is mildly enlarged. Hazy perihilar and bibasilar opacities are present greatest at the r ight lung base. The right costophrenic angle remains blunted. There is minimal blunting of the left c ostophrenic angle. CONCLUSION: 1. Interval placement of left subclavian transvenous pacer with no pneumothorax. 2. Hazy opacity in both lungs and apparent small effusions. The findings could indicate mild congest leo heart failure. Electronically signed by: Humberto Hooker MD 04/26/2018 9:37 PM EDT
--- NOTE | 2018-04-26 22:12 | ECG ---
Date Performed: 04/26/2018 Time Performed: 21:30:50 PTAGE: 77 years EKG: ELECTRONIC VENTRICULAR PACEMAKER ABNORMAL RHYTHM ECG PREVIOUS TRACING : 04/22/2018 00.55 No significant change from previous tracing noted. DOCTOR: Cristobal Mims Interpretating Date/Time 04/26/2018 22:10:37
[2018-04-27] MEDS: ceFAZolin 2 GM/NS 100 ML IV; Q8H IV.SIG SCH ×4 (03:02→11:56)
[2018-04-27] MEDS: Heparin - SQ 10,000 UNITS/ML Vial SQ SCH (11:41)
[2018-04-27] MEDS: Metoprolol Tartrate 25 MG Tablet PO SCH (11:41)
[2018-04-27 12:46] VITALS: RESP 16; O2SAT 95
[2018-04-27 12:50] VITALS: BP 89/60; TEMP 97
[2018-04-27 12:51] VITALS: PULSE 90
--- NOTE | 2018-04-27 13:16 | P.PNIM ---
Subjective Interval history: Patient says she is feeling right. Denies any chest pain or shortness of breath. Denies nausea or vomiting. Reports that pacer site pain is controlled. Physical Exam Vital signs: Vital Signs 04/26/18 14:10 04/26/18 15:40 04/26/18 21:14 Temperature 97.7 F 97.5 F L Pulse Rate 96 H 107 H Respiratory Rate 16 20 Blood Pressure 107/74 97/64 L 118/72 Pulse Oximetry 96 95 04/26/18 21:30 04/26/18 21:45 04/26/18 21:58 Temperature 97.6 F Pulse Rate 99 H 95 H 102 H Respiratory Rate 23 23 Blood Pressure 118/77 114/74 Pulse Oximetry 93 L 93 L 04/26/18 22:00 04/26/18 22:15 04/26/18 22:28 Temperature 98.1 F Pulse Rate 97 H 95 H 97 H Respiratory Rate 18 17 17 Blood Pressure 113/80 110/78 107/72 Pulse Oximetry 94 L 93 L 95 04/26/18 22:45 04/26/18 23:00 04/26/18 23:30 Temperature 98.2 F Pulse Rate 92 H 91 H 87 Respiratory Rate 17 17 18 Blood Pressure 100/73 100/69 103/67 Pulse Oximetry 93 L 93 L 92 L 04/27/18 00:00 04/27/18 00:30 04/27/18 01:00 Temperature Pulse Rate 86 86 84 Respiratory Rate 16 17 Blood Pressure 98/68 L 99/62 L Pulse Oximetry 93 L 93 L 04/27/18 01:30 04/27/18 02:00 04/27/18 02:30 Temperature Pulse Rate 84 84 86 Respiratory Rate 17 17 Blood Pressure 94/60 L 89/51 L Pulse Oximetry 93 L 93 L 04/27/18 03:00 04/27/18 03:12 04/27/18 04:00 Temperature 97.8 F Pulse Rate 81 84 82 Respiratory Rate 18 Blood Pressure 92/56 L Pulse Oximetry 94 L 04/27/18 05:00 04/27/18 06:00 04/27/18 07:00 Temperature 98.4 F Pulse Rate 81 83 88 Respiratory Rate 16 Blood Pressure 99/60 L Pulse Oximetry 95 04/27/18 08:00 04/27/18 09:00 04/27/18 10:00 Temperature Pulse Rate 84 80 84 Respiratory Rate Blood Pressure Pulse Oximetry 04/27/18 11:00 04/27/18 12:00 Temperature 97 F L Pulse Rate 89 90 Respiratory Rate 16 Blood Pressure 89/60 L Pulse Oximetry 95 Intake & Output 04/26/18 04/27/18 04/27/18 18:59 06:59 18:59 Intake Total 340 / 340 Output Total 600 / 600 Balance -600 / -600 340 / 340 Weight 69.8 kg Intake: IV 100 / 100 Ancef Inj 2,000 MG In NS Inj 80 100 / 100 ML @ 200 mls/hr IV.SIG Q8H SLOAN Rx#:[id number] Oral 240 / 240 Output: Urine 600 / 600 Other: Date of Last Bowel Movement 04/25/18 Narrative: GENERAL: Patient sitting up in chair. Appears comfortable. Alert and oriented 4. SKIN: Warm and dry. HEAD: Normocephalic. EYES: No scleral icterus. No injection or drainage. NECK: Supple, trachea midline. No JVD or lymphadenopathy. CARDIOVASCULAR: Regular rate and rhythm without murmurs, gallops, or rubs. RESPIRATORY: Breath sounds equal bilaterally. No accessory muscle use. Left upper chest with pacer site Steri-Strips intact. GASTROINTESTINAL: Abdomen soft, non-tender, nondistended. MUSCULOSKELETAL: No cyanosis, or edema. BACK: Nontender without obvious deformity. No CVA tenderness. Results - Labs CBC & Chem 7: 04/22/18 07:06 04/25/18 04:53 Laboratory Results - last 24 hr 04/26/18 16:12 POC Glucose 102 - Imaging Impressions Chest X-Ray 04/26/18 00:00 CONCLUSION: 1. Interval placement of left subclavian transvenous pacer with no pneumothorax. 2. Hazy opacity in both lungs and apparent small effusions. The findings could indicate mild congestive heart failure. Assessment and Plan - Assessment (1) CHF (congestive heart failure) Code(s): I50.9 - Heart failure, unspecified Status: Acute - Plan 77-year-old female with history of valvular cardiomyopathy, CHF, history of valve repair surgery January 2018, hypertension, presents with worsening shortness of breath. Outpatient echocardiogram showed EF of 20%. 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 -Pleural effusions small, unlikely needs thoracentesis -Continue diuresis with IV Lasix with KCl replacement; Patient hypotensive on 04/24 with BP 80s/50s, decreased Lasix to 20 mg twice a day. -Continue beta-urban w/ hold parameters -Monitor I's and O's, daily weights -Continue O2 as needed, patient does not wear oxygen at home, O2 sat now stable on room air -Cardiology consulted, appreciate recommendations, will likely need several days of diuresis in the hospital -Consulted Dr. Baires for AICD placement, likely on Thursday 04/26 = Status post AICD PICC placement. Patient cleared by cardiology for discharge home. Appreciate cardiology assistance. Follow-up with cardiology as outpatient. //Hypertension: chronic, BP well controlled -continue home medications -Monitor BP, adjust antihypertensives as needed //Hx of Hyperglycemia: controlled with diet -Blood glucose has been less than 100 -Continue diet control, outpatient f/up //DVT Prophylaxis: Heparin sq Discharge Planning: Cleared by cardiology Discharge home on cardiac diet. Activity as tolerated, do not lift left arm. Do not shower until tomorrow. Please see discharge medication reconciliation for medication list. Follow-up with primary care and cardiology. (1) CHF (congestive heart failure) Qualifiers: Heart failure type: unspecified Heart failure chronicity: acute Qualified Code(s): I50.9 - Heart failure, unspecified
--- NOTE | 2018-04-27 13:28 | P.DS ---
Date of admission: 04/21/18 19:24 Primary care physician: Narda Torres MD Brief History from admission: Mrs. Alberto is a 77-year-old female. She has a past history of cardiac valve disease 2. She has had valve repair surgery in January 2018. Today she comes in with a worsening shortness of breath. She had an echocardiogram as an outpatient which showed an approximate 20% ejection fraction. She had planned to have a pacemaker placed at the end of this month, however, at this time she does not feel that she can last until then so she came in for medical treatment. BMP is found to be elevated. Bilateral pleural effusions are seen on imaging. Pulmonary edema is present. Peripheral edema is present. No fevers or cough. No known precipitating factor. No complaints of chest pain. DS: Diagnosis - Discharge Diagnosis (1) CHF (congestive heart failure) Status: Acute DS: Summary Hospital Course: On admission, patient was found to be in acute CHF exacerbation with BNP of 2000 , chest x-ray with bilateral pleural effusion, pulmonary edema. CHF improved with IV diuresis. Electrophysiology was consulted due to left bundle branch block, and pacemaker was placed to improve cardiac function. Patient feeling well, was discharged home. Will need to follow-up with primary care, cardiology as outpatient. Will need repeat chest x-ray in 1 week. For problem based summary from most recent progress note, please see below. 77-year-old female with history of valvular cardiomyopathy, CHF, history of valve repair surgery January 2018, hypertension, presents with worsening shortness of breath. Outpatient echocardiogram showed EF of 20%. 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 -Pleural effusions small, unlikely needs thoracentesis -Continue diuresis with IV Lasix with KCl replacement; Patient hypotensive on 04/24 with BP 80s/50s, decreased Lasix to 20 mg twice a day. -Continue beta-urban w/ hold parameters -Monitor I's and O's, daily weights -Continue O2 as needed, patient does not wear oxygen at home, O2 sat now stable on room air -Cardiology consulted, appreciate recommendations, will likely need several days of diuresis in the hospital -Consulted Dr. Baires for AICD placement, likely on Thursday 04/26 = Status post AICD PICC placement. Patient cleared by cardiology for discharge home. Appreciate cardiology assistance. Follow-up with cardiology as outpatient. //Hypertension: chronic, BP well controlled -continue home medications -Monitor BP, adjust antihypertensives as needed //Hx of Hyperglycemia: controlled with diet -Blood glucose has been less than 100 -Continue diet control, outpatient f/up //DVT Prophylaxis: Heparin sq Discharge Planning: Cleared by cardiology Discharge home on cardiac diet. Activity as tolerated, do not lift left arm. Do not shower until tomorrow. Please see discharge medication reconciliation for medication list. Follow-up with primary care and cardiology. - Time Spent with Patient Total time spent providing and/or coordinating discharge services: Greater than 30 minutes - Quality: VTE Deep Vein Thrombosis/Pulmonary Embolism Present on Admission: No Exam Vital signs: Vital Signs 04/26/18 14:10 04/26/18 15:40 04/26/18 21:14 Temperature 97.7 F 97.5 F L Pulse Rate 96 H 107 H Respiratory Rate 16 20 Blood Pressure 107/74 97/64 L 118/72 Pulse Oximetry 96 95 04/26/18 21:30 04/26/18 21:45 04/26/18 21:58 Temperature 97.6 F Pulse Rate 99 H 95 H 102 H Respiratory Rate 23 23 Blood Pressure 118/77 114/74 Pulse Oximetry 93 L 93 L 04/26/18 22:00 04/26/18 22:15 04/26/18 22:28 Temperature 98.1 F Pulse Rate 97 H 95 H 97 H Respiratory Rate 18 17 17 Blood Pressure 113/80 110/78 107/72 Pulse Oximetry 94 L 93 L 95 04/26/18 22:45 04/26/18 23:00 04/26/18 23:30 Temperature 98.2 F Pulse Rate 92 H 91 H 87 Respiratory Rate 17 17 18 Blood Pressure 100/73 100/69 103/67 Pulse Oximetry 93 L 93 L 92 L 04/27/18 00:00 04/27/18 00:30 04/27/18 01:00 Temperature Pulse Rate 86 86 84 Respiratory Rate 16 17 Blood Pressure 98/68 L 99/62 L Pulse Oximetry 93 L 93 L 04/27/18 01:30 04/27/18 02:00 04/27/18 02:30 Temperature Pulse Rate 84 84 86 Respiratory Rate 17 17 Blood Pressure 94/60 L 89/51 L Pulse Oximetry 93 L 93 L 04/27/18 03:00 04/27/18 03:12 04/27/18 04:00 Temperature 97.8 F Pulse Rate 81 84 82 Respiratory Rate 18 Blood Pressure 92/56 L Pulse Oximetry 94 L 04/27/18 05:00 04/27/18 06:00 04/27/18 07:00 Temperature 98.4 F Pulse Rate 81 83 88 Respiratory Rate 16 Blood Pressure 99/60 L Pulse Oximetry 95 04/27/18 08:00 04/27/18 09:00 04/27/18 10:00 Temperature Pulse Rate 84 80 84 Respiratory Rate Blood Pressure Pulse Oximetry 04/27/18 11:00 04/27/18 12:00 Temperature 97 F L Pulse Rate 89 90 Respiratory Rate 16 Blood Pressure 89/60 L Pulse Oximetry 95 Intake & Output 04/26/18 04/27/18 04/27/18 18:59 06:59 18:59 Intake Total 340 / 340 Output Total 600 / 600 Balance -600 / -600 340 / 340 Weight 69.8 kg Intake: IV 100 / 100 Ancef Inj 2,000 MG In NS Inj 80 100 / 100 ML @ 200 mls/hr IV.SIG Q8H SLOAN Rx#:[id number] Oral 240 / 240 Output: Urine 600 / 600 Other: Date of Last Bowel Movement 04/25/18 Results Procedures completed during hospitalization: Pacer placement on 04/26. Please see report. Labs on day of discharge: Labs from last 24 hours 04/26/18 16:12 POC Glucose 102 - Impressions ITS Impressions Chest X-Ray 04/26/18 00:00 CONCLUSION: 1. Interval placement of left subclavian transvenous pacer with no pneumothorax. 2. Hazy opacity in both lungs and apparent small effusions. The findings could indicate mild congestive heart failure. Discharge Plan - Discharge Disposition Patient Disposition: 01 Discharge Home - Discharge Condition Condition: Stable - Discharge Order Discharge Orders: Discharge Order (Routine); Ordered 04/27/18 Ordered By: Adán Olsen - Discharge Details Anticipated Discharge Date: 04/27/18 - Physicians Team Primary Care Provider: Narda Torres Attending Provider: Adán Olsen Other Providers: Tristen Hudson MD ; Ranulfo Baires MD ; Breana Toussaint
[2018-04-27] MEDS ORDERED: Iohexol 350 MG/ML 50 ML Vial (for Cath Lab) IVCONTRAST ONE (14:49)
--- NOTE | 2018-05-02 04:23 | MP ---
cc: Ranulfo Baires MD DATE OF OPERATION: 04/26/2018 DATE OF PROCEDURE: 04/26/2018 INDICATIONS FOR PROCEDURE: The patient is a 77-year-old female who has a history of cardiomyopathy ____ medical treatment. Ejection fraction 20%. Will undergo a biventricular pacer defibrillator insertion. The risks, the nature and the benefits of the procedure were clearly explained to her. The risks include pneumothorax, cardiac perforation, stroke and even . The patient understands and agreed to proceed. PROCEDURE: After informed consent was obtained prior to electrophysiology study, the patient was kept on the table where she was prepped and draped in the usual sterile fashion. Conscious sedation was initiated and maintained throughout the procedure by the anesthesiologist. Once sedation was verified, the left infraclavicular area was anesthetized with 2% Xylocaine. Using a modified Seldinger technique, the left subclavian venogram ____ guidewire was advanced. Then using a #11 blade scalpel, a 3 cm incision was made 2 fingerbreadths below the left clavicle. Incision was taken down to the deep fascial layer using Bovie cautery and blunt dissection. Into the inferomedial direction, the device pocket was dissected. Then the wire was dissected into pocket. A 2-0 Vicryl suture was placed around the wires and we were backbleeding. At this point, over the lateral wire, an 8-Luxembourger dilator and introducer was advanced. The dilator and wire were removed, an active fixation right ventricular pacing and sensing defibrillator lead was advanced. After adequate pacing and sensing thresholds obtained, the lead was secured in the pocket with a 2-0 Ethibond suture. Then over the medial wire, a 7-Luxembourger dilator and introducer was advanced. Dilator and wire were removed, an active fixation ____ lead was advanced. After adequate pacing and sensing threshold obtained, the lead was secured in the pocket using 2-0 Ethibond suture. Then, over the remaining wire, a 9-Luxembourger dilator and introducer were advanced. Dilator and wire were removed, a CS cannulation sheath was advanced. Through this sheath, a quadripolar steerable catheter was advanced. After multiple attempts, the coronary sinus was cannulated. A venogram, which an adequate lateral branch. Using a Ginger.iowater wire, the lateral branch was cannulated and the lead was advanced over the wire. After adequate pacing and sensing thresholds were obtained, the peel-away introducer was removed and the cutter introducer was removed and the lead was secured in the pocket using ____ Ethibond suture. At that point, the pocket was copiously irrigated with antibiotics solution. The leads were connected to generator, placed into the pocket. I did proceed with wound closure. The fascial layer was approximated with #2-0 Vicryl suture in a continuous fashion. The subcutaneous layer was approximated with #2-0 Vicryl suture in a continuous fashion. The subcuticular layer was approximated using #2-0 Vicryl suture in a continuous fashion. Dermabond adhesive was applied to the wound followed by sterile pressure dressing. There was no complication. The patient tolerated the procedure. ESTIMATED BLOOD LOSS: Minimal. 1. IMPLANTED HARDWARE: The implanted biventricular pacer defibrillator is a Biotronik model #76223, serial #[id number]. The right atrial pacing system is a Biotronik model #935691, serial #[id number]. The right ventricular pacing and sensing defibrillator lead is a Biotronik model #846235, serial #[id number]. The left ventricular pacing/sensing lead is a [employer] model #4398-88, serial number [id number]. 2. THRESHOLDS: The right atrial pacing threshold in the bipolar mode was 1 volt at 0.4 milliseconds. Lead impedance is 570 ohms and P-wave at 0.9 millivolt. The right ventricular pacing threshold in bipolar mode was 0.6 volts at 0.4 milliseconds, lead impedance 712 ohms. R-wave at 12 millivolts. The left ventricular pacing threshold in the bipolar mode was 2 volts at 0.4 milliseconds. Lead impedance 325 ohms. 3. SETTINGS: The device set at DDD 60, upper limit 120 beats per minute, LV first by 40 milliseconds. AV delay is at 160 and ____ at 130. Defibrillatory portion for 2 zones, zone 1 for ventricular tachycardia. Once stopped to 240 beats per minute. He was charged that because of 1% ____ 40 ____ 240 beats per minute, first therapy at 30 and all subsequent shocks at 40 joules defibrillatory shock. CONCLUSION: Successful biventricular pacer defibrillator insertion. Coumadin combination. The patient is going to be transferred to [facility]. We will observe, once stable will be discharged home. MD TEZ Tamayo/sherrie/brynn , 09:49 PM , 10:02 PM
--- NOTE | 2018-05-02 09:48 | MA ---
cc: Ranulfo Baires MD DATE: 04/26/2018 PROCEDURE PERFORMED: Electrophysiology study with CS cannulation. INDICATIONS: Ms. Alberto is a 77-year-old female with heart failure, nonischemic cardiomyopathy, ejection fraction 20%, who is here for an electrophysiology study and device insertion. The risks, the nature and the benefits of the procedure were clearly stated to her. The risks include pneumothorax, cardiac perforation, stroke, need for open heart surgery and even . The patient understood and agreed to proceed. DESCRIPTION OF PROCEDURE: After written informed consent was obtained, the patient was brought to the EP lab where she was prepped and draped in the usual sterile fashion. Conscious sedation was initiated and maintained throughout the procedure by the anesthesiologist. Once sedation was verified, the right inguinal area was anesthetized with 2% Xylocaine. Using a modified Seldinger technique, the left femoral vein was cannulated on 4 occasions and 4 guidewires were advanced. Over the wires three 5 and a 6 Spanish Hemaquets were advanced. Then, under fluoroscopic guidance, through the 5 Spanish and 6 Spanish Hemaquets, four 5 Spanish Ramona curved quadripolar electrophysiology catheters were advanced and placed on the His, the right atrium, coronary sinus and right ventricular apex. The basic intervals were measured. They were within normal limits. At this point, atrial pacing protocol was performed. Atrial pacing protocol consisted of incremental atrial pacing as well as program stimulation with 110 cycle length and up to 1 extrastimuli delivered. No tachyarrhythmia was induced. There was poor signal in the right atrium. Then, ventricular pacing protocol was performed. There was no VA conduction. Ventricular pacing protocol consisted of incremental ventricular pacing as well as program stimulation with 110 cycle length and up to 2 extrastimuli delivered. During ventricular pacing protocol, systolic blood pressure as well as saturation dropped significantly. At that point, I discontinued the procedure. The procedure was complete. All catheters were removed. The patient had an ejection fraction of 20%, on . QRS over 140 milliseconds. A biventricular pacer defibrillator will be implanted for sudden prevention and resynchronization therapy. No incident reported. Blood loss minimal. 1. ELECTROCARDIOGRAM: At baseline, the patient was sinus. Post procedure, the electrocardiogram was unchanged. 2. BASIC INTERVAL: Basic cycle length was around 690 milliseconds. AH was and HV was around 62 milliseconds. 3. ATRIAL PACING PROTOCOL: No tachyarrhythmia was induced. 4. VENTRICULAR PACING PROTOCOL: No tachyarrhythmia was induced. CONCLUSION: Negative electrophysiology study for supraventricular tachyarrhythmia. COMMENT AND RECOMMENDATIONS: The patient ____ biventricular pacer defibrillator will be implanted for sudden prevention and resynchronization therapy. MD TEZ Tamayo/luis/brynn , 09:53 PM , 10:03 PM
== END 2018-04-27 14:50 | disposition home or self-care (01) ==
LOC: NEDA 11:46 → NEPE 11:46 → NEDA 15:47 → NEPGCP 17:05 → HCIS 04-26 17:11 → NEPGCP 04-26 17:57 → HCIS 04-26 18:44
PROVIDERS: ADMIT Internal Medicine; ATTEND Internal Medicine
PROC: [UNRECOGNIZED PROCEDURE] (2018-04-26 16:30)

== ENCOUNTER 2018-05-16 10:00 | Inpatient (IN) ==
--- NOTE | 2018-05-16 11:03 | XR ---
EXAM DATE: 05/16/2018 11:00 AM EDT AGE/SEX: 77 years / Female INDICATIONS: Shortness of breath. CLINICAL DATA: This is the patient's initial encounter. Patient reports that signs and symptoms have been present for 3 days and indicates a pain score of 0/10. MEDICAL/SURGICAL HISTORY: None. Pacemaker. Open heart surgery, attempted valve replacement. COMPARISON: [facility] [place]ST 1V SINGLE AP, 04/26/2018. . FINDINGS: Bilateral effusions, right greater than left and basilar consolidation again seen. Improved aeration of the mid to upper lung zones. Cardiomegaly, sternotomy wires and pacer device again seen. CONCLUSION: Improved aeration. Electronically signed by: Suresh Jerez MD 05/16/2018 11:02 AM EDT
[2018-05-16 11:04] LABS: Baso % (Auto) 0.7 % (0.0-2.0); Eos # (Auto) 0.2 th/mm3 (0.0-0.4); Eos % (Auto) 3.4 % (0.0-4.0); Hematocrit 38.8 % (35.0-46.0); Hemoglobin 12.5 gm/dL (11.6-15.3); Lymph # (Auto) 1.7 th/mm3 (1.0-4.8); Lymph % (Auto) 26.3 % (9.0-44.0); Mean Corpuscular HGB Conc 32.1 % (32.0-36.0); Mean Corpuscular Hemoglobin 27.3 pg (27.0-34.0); Mean Corpuscular Volume 85.2 fL (80.0-100.0); Mean Platelet Volume 8.3 fL (7.0-11.0); Mono # (Auto) 0.4 th/mm3 (0.0-0.9); Neut # (Auto) 4.2 th/mm3 (1.8-7.7); Neut % (Auto) 63.6 % (16.0-70.0); Platelet Count 270 th/mm3 (150-450); Red Blood Count 4.56 mil/mm3 (4.00-5.30); Red Cell Distribution Width 16.4 % (11.6-17.2); White Blood Count 6.5 th/mm3 (4.0-11.0)
[2018-05-16 11:17] LABS: Activated Partial Thrombo Time 28.9 sec (24.3-30.1); INR 1.6 Ratio; Prothrombin Time 16.1 sec (9.8-11.6)
[2018-05-16 11:18] LABS: Anion Gap 10 meq/L (5-15); Aspartate Aminotransferase 38 U/L (15-37); Blood Urea Nitrogen 30 mg/dL (7-18); Calcium 8.7 mg/dL (8.5-10.1); Chloride 109 meq/L (98-107); Glomerular Filtration Rate 55 mL/min (>89); Glucose,Random 109 mg/dL (74-106); Magnesium 2.1 mg/dL (1.5-2.5); Potassium 4.3 meq/L (3.5-5.1); Sodium 141 meq/L (136-145)
[2018-05-16 11:19] LABS: Alanine Aminotransferase 56 U/L (10-53)
[2018-05-16 11:23] LABS: Alkaline Phosphatase 123 U/L (45-117); Creatine Kinase 37 U/L (26-192); Troponin I 0.03 ng/mL (0.02-0.05)
[2018-05-16 11:23] LABS: Bilirubin,Urine Negative (Negative); Clarity,Urine Clear (Clear); Color,Urine Yellow (Yellw/Straw); Glucose,Urine (UA) Negative (Negative); Leukocyte Esterase,Urine Negative (Negative); Nitrite,Urine Negative (Negative); Specific Gravity,Urine 1.011 (1.002-1.035); Squamous Epithelial Cell,Urine <1 /hpf (0-5)
[2018-05-16] MEDS ORDERED: Bisacodyl 10 MG Supp RECTAL PRN (12:16)
[2018-05-16] MEDS ORDERED: Warfarin Consult Pharmacy OTHER PRN (12:16)
--- NOTE | 2018-05-16 12:29 | ED ---
HPI General Chief complaint: Respiratory Symptoms Stated complaint: SOB Time Seen by Provider: 05/16/18 10:46 Source: patient Mode of arrival: ambulatory Limitations: no limitations History of Present Illness HPI narrative: 77 year old female here for evaluation of shortness of breath with laying down and leg swelling. Going on for 3 days. Not improving. Taking lasix 20 mg BID with no improvement. History of new AICD placed [address] Baires and valve repair done by Dr Hurley. Per patient she has a history of CHF exacerbation and has had to be admitted for this in the past. Follows up with Dr Barakat. She denies any fevers chills or sweats. No cough or runny nose. Per patient when she had the pacemaker placed she started having palpitations and apparently the tech who saw her adjusted the settings on the pacemaker. Unclear if this is something to do with this. Per patient she has been reducing her salt intake as she was told. She has been compliant with her medications. She denies any chest pain. Only shortness of breath with exertion. Per patient she is been getting about 3-5 pounds in the past 3 days. She is basically concerned because every time she lays down to sleep she feels very short of breath. No urinary or bowel movement issues. No other medical issues. No fevers, chills or sweats. Related Data Home Medications Medication Instructions Recorded Confirmed fluticasone-vilanterol [Breo 1 inh INHALATION DAILY 04/21/18 05/16/18 Ellipta] metoprolol tartrate 12.5 mg PO BID 04/21/18 05/16/18 warfarin 3 mg PO DAILY 04/21/18 05/16/18 aspirin [Aspir-81] 81 mg PO DAILY 05/16/18 05/16/18 Previous Rx's Medication Instructions Recorded furosemide [Lasix] 20 mg PO BID 30 Days #60 tab 04/27/18 potassium chloride 10 meq PO BID 30 Days #60 tab 04/27/18 Allergies Allergy/AdvReac Type Severity Reaction Status Date / Time No Known Allergies Allergy Verified 05/16/18 10:31 Review of Systems ROS: all other systems reviewed are negative [facility] Medical History Medical History CHF (congestive heart failure), NYHA class IV (Acute) HBP (high blood pressure) (Acute) Pacemaker (Acute) Surgical History Surgical History H/O aortic valve replacement (Acute) Hx of heart surgery (Acute) Family History Family History Other Diabetes mellitus type 2 in nonobese Social History Social History Substance History: No History of Abuse Second Hand Smoke Exposure: No Smoking Status: Never smoker How Often Do You Have a Drink Containing Alcohol: Never Recent Travel in [facility] within the Last 8 Weeks: No Recent Out of Country Travel within the Last 8 Weeks: No Immunization History Tetanus Immunization: Unsure Hx Influenza Vaccine This Season: Yes Exam Narrative Exam Narrative: GENERAL: Well appearing. SKIN: Focused skin assessment warm/dry. HEAD: Atraumatic. Normocephalic. EYES: Pupils equal and round. No scleral icterus. No injection or drainage. ENT: No nasal bleeding or discharge. Mucous membranes pink and moist. Tongue is midline. No uvula deviation. NECK: Trachea midline. No JVD. CARDIOVASCULAR: Regular rate and rhythm. No murmur appreciated. RESPIRATORY: No accessory muscle use. Crackles heard in the lower lung bishop. Breath sounds equal bilaterally. GASTROINTESTINAL: Abdomen soft, non-tender, nondistended. Hepatic and splenic margins not palpable. MUSCULOSKELETAL: No obvious deformities. No clubbing. No cyanosis. No edema. Patient does have 2+ pitting edema in the lower extremities. 2+ pulses bilaterally. NEUROLOGICAL: Awake and alert. No obvious cranial nerve deficits. Motor grossly within normal limits. Normal speech. PSYCHIATRIC: Appropriate mood and affect; insight and judgment normal. Course Initial Documented Vital Signs Temperature 97.3 F L 05/16/18 10:05 Pulse Rate 92 H 05/16/18 10:05 Respiratory Rate 16 05/16/18 10:05 Blood Pressure 117/73 05/16/18 10:05 Pulse Oximetry 99 05/16/18 10:05 Last Documented Vital Signs Temperature 97.3 F L 05/16/18 10:05 Pulse Rate 91 H 05/16/18 10:34 Respiratory Rate 24 05/16/18 10:34 Blood Pressure 111/69 05/16/18 10:34 Pulse Oximetry 97 05/16/18 11:25 Medical Decision Making [facility] Narrative Medical decision making narrative: 77-year-old female that presents to the ED for evaluation of shortness of breath with exertion and fluid overload. Patient was properly examined and was found to have signs and symptoms very consistent appears to be CHF exacerbation. Chest x-ray and labs were done. Chest x-ray and labs were essentially unremarkable other than for what appears to be bilateral pleural effusion and elevated BNP. Patient does appear to be slightly in fluid overload with CHF exacerbation. Recommend trial of Lasix at this time. Pacemaker will be interrogated. Patient will be admitted for further evaluation. Patient agrees with this. Case discussed with Dr. Stanton my attending who agrees with admission plan. Dr. Olsen agrees to admission to his service. Medical Screen Exam Complete: Yes Emergency Medical Condition: Yes Differential Diagnosis Differential Diagnosis: CHF exacerbation versus acute CHF versus respiratory distress versus pulmonary edema versus pleural effusion Medical Records Medical records reviewed: Yes I reviewed the patient's medical records. Lab Data Lab results reviewed: Yes I reviewed the patient's lab results. Lab results narrative: BNP elevated troponin of 0.03 CK WNL Result diagrams: 05/16/18 10:50 05/16/18 10:50 Lab Results 05/16/18 05/16/18 05/16/18 Range/Units 10:50 10:50 10:50 WBC 6.5 (4.0-11.0) th/mm3 RBC 4.56 (4.00-5.30) mil/mm3 Hgb 12.5 (11.6-15.3) gm/dL Hct 38.8 (35.0-46.0) % MCV 85.2 (80.0-100.0) fL MCH 27.3 (27.0-34.0) pg MCHC 32.1 (32.0-36.0) % RDW 16.4 (11.6-17.2) % Plt Count 270 (150-450) th/mm3 MPV 8.3 (7.0-11.0) fL Neut % (Auto) 63.6 (16.0-70.0) % Lymph % (Auto) 26.3 (9.0-44.0) % Sandoval % (Auto) 6.0 (0.0-8.0) % Eos % (Auto) 3.4 (0.0-4.0) % Baso % (Auto) 0.7 (0.0-2.0) % Neut # (Auto) 4.2 (1.8-7.7) th/mm3 Lymph # (Auto) 1.7 (1.0-4.8) th/mm3 [place] # (Auto) 0.4 (0.0-0.9) th/mm3 Eos # (Auto) 0.2 (0.0-0.4) th/mm3 Baso # (Auto) 0.0 (0.0-0.2) th/mm3 WBC Differential . Differential Comment Auto diff final PT 16.1 H (9.8-11.6) sec INR 1.6 Ratio APTT 28.9 (24.3-30.1) sec Sodium 141 (136-145) meq/L Potassium 4.3 (3.5-5.1) meq/L Chloride 109 H (98-107) meq/L Carbon Dioxide 22.0 (21.0-32.0) meq/L Anion Gap 10 (5-15) meq/L BUN 30 H (7-18) mg/dL Creatinine 0.99 (0.50-1.00) mg/dL Estimated GFR 55 L (>89) mL/min Random Glucose 109 H (74-106) mg/dL Calcium 8.7 (8.5-10.1) mg/dL Magnesium 2.1 (1.5-2.5) mg/dL Total Bilirubin 0.7 (0.2-1.0) mg/dL AST 38 H (15-37) U/L ALT 56 H (10-53) U/L Alkaline Phosphatase 123 H (45-117) U/L Total Creatine Kinase 37 (26-192) U/L Troponin I 0.03 (0.02-0.05) ng/mL B-Natriuretic Peptide (0-100) pg/mL Total Protein 7.0 (6.4-8.2) g/dL Albumin 4.0 (3.4-5.0) g/dL Urine Color (Yellw/Straw) Urine Clarity (Clear) Urine pH (5.0-8.5) Ur Specific [place] (1.002-1.035) Urine Protein (Neg-Trace) mg/dL Urine Glucose (UA) (Negative) mg/dL Urine Ketones (Negative) mg/dL Urine Occult Blood (Negative) Urine Nitrate (Negative) Urine Bilirubin (Negative) Urine Urobilinogen (Less than 2) mg/dL Ur Leukocyte Esterase (Negative) Urine WBC (0-5) /hpf Ur Squamous Epith Cells (0-5) /hpf Micro UA Comment Ur Microscopic Review Urine Culture Comments 05/16/18 05/16/18 05/16/18 Range/Units 10:50 10:50 11:09 WBC (4.0-11.0) th/mm3 RBC (4.00-5.30) mil/mm3 Hgb (11.6-15.3) gm/dL Hct (35.0-46.0) % MCV (80.0-100.0) fL MCH (27.0-34.0) pg MCHC (32.0-36.0) % RDW (11.6-17.2) % Plt Count (150-450) th/mm3 MPV (7.0-11.0) fL Neut % (Auto) (16.0-70.0) % Lymph % (Auto) (9.0-44.0) % [place] % (Auto) (0.0-8.0) % Eos % (Auto) (0.0-4.0) % Baso % (Auto) (0.0-2.0) % Neut # (Auto) (1.8-7.7) th/mm3 Lymph # (Auto) (1.0-4.8) th/mm3 [place] # (Auto) (0.0-0.9) th/mm3 Eos # (Auto) (0.0-0.4) th/mm3 Baso # (Auto) (0.0-0.2) th/mm3 WBC Differential Differential Comment PT (9.8-11.6) sec INR Ratio APTT (24.3-30.1) sec Sodium (136-145) meq/L Potassium (3.5-5.1) meq/L Chloride (98-107) meq/L Carbon Dioxide (21.0-32.0) meq/L Anion Gap (5-15) meq/L BUN (7-18) mg/dL Creatinine (0.50-1.00) mg/dL Estimated GFR (>89) mL/min Random Glucose (74-106) mg/dL Calcium (8.5-10.1) mg/dL Magnesium Cancelled (1.5-2.5) mg/dL Total Bilirubin (0.2-1.0) mg/dL AST (15-37) U/L ALT (10-53) U/L Alkaline Phosphatase (45-117) U/L Total Creatine Kinase Cancelled (26-192) U/L Troponin I (0.02-0.05) ng/mL B-Natriuretic Peptide 2446 H (0-100) pg/mL Total Protein (6.4-8.2) g/dL Albumin (3.4-5.0) g/dL Urine Color Yellow (Yellw/Straw) Urine Clarity Clear (Clear) Urine pH 5.0 (5.0-8.5) Ur Specific [place] 1.011 (1.002-1.035) Urine Protein Negative (Neg-Trace) mg/dL Urine Glucose (UA) Negative (Negative) mg/dL Urine Ketones Negative (Negative) mg/dL Urine Occult Blood Small H (Negative) Urine Nitrate Negative (Negative) Urine Bilirubin Negative (Negative) Urine Urobilinogen Less than 2 (Less than 2) mg/dL Ur Leukocyte Esterase Negative (Negative) Urine WBC Less than 1 (0-5) /hpf Ur Squamous Epith Cells <1 (0-5) /hpf Micro UA Comment Culture not ind Ur Microscopic Review Not Reportable Urine Culture Comments Culture not ind Imaging Data Attestation: I personally reviewed and interpreted this imaging study as follows : Radiologist's impression: Chest X-Ray 05/16/18 10:44 CONCLUSION: Improved aeration. ECG Data Interpretation: EKG showed Discharge Plan Discharge Disposition Patient Disposition: 30 Still Patient Discharge Details Diagnosis: Acute exacerbation of CHF (congestive heart failure) Physicians Team ED Provider: Amelia Stanton ED Midlevel Provider: Kevon Peterson Primary Care Provider: Narda Torres Attending Provider: Adán Olsen Other Providers: Deniz Richard Discharge Interventions Interventions: ED Discharge Assessment Last Done: 05/16/18 13:08 Vital Signs Last Done: 05/16/18 10:34 Status ED Status: Left Department Discharge Information Discharge Date/Time: 05/16/18 13:10
--- NOTE | 2018-05-16 18:39 | P.HPIM ---
History of Present Illness Primary Care Physician: aNrda Torres MD History of Present Illness: 77-year-old female with a history of CHF, COPD, hypertension, ejection fraction recently measured 20% by echocardiogram, as well as recent admission for CHF exacerbation, during which pacer was placed by Dr. Baires. She presents with 4 day history of worsening shortness of breath both with exertion and at rest, nocturnal dyspnea, bilateral lower extremity edema, weight gain of 3 pounds over the past 4 days. She denies any chest pain. Denies any cough. Denies any nausea or vomiting. She has received Lasix in the ER, and currently feels much improved. She says she is not ready to go home right now however. Patient has not been on fluid restrictions. She has been taking her medications as prescribed Review of Systems All other systems reviewed negative except as stated in [facility]PI [facility] - History History Provided By: Patient - Medical History Medical History: Medical History (Last Reviewed 05/16/18 @ 12:26 by JULIEN Matthews) CHF (congestive heart failure), NYHA class IV (Acute) HBP (high blood pressure) (Acute) Pacemaker - Surgical History Surgical History: Surgical History (Last Reviewed 05/16/18 @ 12:26 by JULIEN Matthews) H/O aortic valve replacement (Acute) Hx of heart surgery (Acute) - Family History Family History: Family History (Last Reviewed 05/16/18 @ 12:26 by JULIEN Matthews) Other Diabetes mellitus type 2 in nonobese - Tobacco History Second Hand Smoke Exposure: No Tobacco Use In Past 30 Days: No Smoking Status: Never smoker - Alcohol History How Often Do You Have a Drink Containing Alcohol: Never - Substance Use History Substance History: No History of Abuse - Travel History Recent Travel in the [place] Within the Last 8 Weeks: No Recent Travel Out of the Country Within the Last 8 Weeks: No - Immunization History Tetanus Immunization: Unsure Hx Influenza Vaccine This Season: Yes Medications and Allergies Active Medications: Active Medications Al Hydroxide/Mg Hydroxide (Milk Of Sabiha Price) 30 ml PO Q12H PRN PRN Reason: Mild Constipation Aspirin (Ecotrin) 81 mg PO DAILY [place] Bisacodyl (Dulcolax Supp) 10 mg RECTAL DAILY PRN PRN Reason: SEVERE CONSITIPATION Fluticasone/Vilanterol (Breo Ellipta 200/25 Mcg Inh) 1 puff INH DAILY [facility] Lactulose (Lactulose Liq) 30 ml PO DAILY PRN PRN Reason: SEVERE CONSITIPATION Metoprolol Tartrate (Lopressor) 12.5 mg PO BID [facility] Pharmacy Profile Note (Coumadin Consult Pharmacy) 1 each OTHER UNSCH PRN PRN Reason: PHARMACY DOCUMENTATION Potassium Chloride (Klor-Con 10) 10 meq PO BID [facility] Sennosides (Senokot) 17.2 mg PO Q12H PRN PRN Reason: Moderate Constipation Warfarin Sodium (Coumadin) 3 mg PO DAILY@1600 [facility] Last Admin: 05/16/18 17:59 Dose: Not Given Allergies Allergy/AdvReac Type Severity Reaction Status Date / Time No Known Allergies Allergy Verified 05/16/18 10:31 Home Medications Medication Instructions Recorded Confirmed Type fluticasone-vilanterol [Breo 1 inh INHALATION DAILY 04/21/18 05/16/18 History Ellipta] metoprolol tartrate 12.5 mg PO BID 04/21/18 05/16/18 History warfarin 3 mg PO DAILY 04/21/18 05/16/18 History aspirin [Aspir-81] 81 mg PO DAILY 05/16/18 05/16/18 History Exam Vital signs: Vital Signs 05/16/18 10:05 05/16/18 10:34 05/16/18 10:47 Temperature 97.3 F L Pulse Rate 92 H 91 H Respiratory Rate 16 24 Blood Pressure 117/73 111/69 Pulse Oximetry 99 97 96 05/16/18 10:48 05/16/18 11:25 05/16/18 16:00 Temperature 97.8 F Pulse Rate 80 Respiratory Rate 16 Blood Pressure 88/52 L Pulse Oximetry 97 97 95 Intake & Output 05/15/18 05/16/18 05/16/18 18:59 06:59 18:59 Weight 73.936 kg Other: Date of Last Bowel Movement 05/15/18 Narrative: GENERAL: Patient sitting up in bed. Appears comfortable. SKIN: Warm and dry. HEAD: Atraumatic. Normocephalic. EYES: Pupils equal and round. No scleral icterus. No injection or drainage. ENT: No nasal bleeding or discharge. Mucous membranes pink and moist. NECK: Trachea midline. No JVD. CARDIOVASCULAR: Regular rate and rhythm. Systolic murmur. RESPIRATORY: No accessory muscle use. Slight crackles in the bases. Breath sounds equal bilaterally. GASTROINTESTINAL: Abdomen soft, non-tender, nondistended. Hepatic and splenic margins not palpable. MUSCULOSKELETAL: Extremities without clubbing, cyanosis, or edema. No obvious deformities. NEUROLOGICAL: Awake and alert. No obvious cranial nerve deficits. Motor grossly within normal limits. Five out of 5 muscle strength in the arms and legs. Normal speech. PSYCHIATRIC: Appropriate mood and affect; insight and judgment normal. Results - Labs CBC & Chem 7: 05/16/18 10:50 05/16/18 10:50 Labs: Short CBC 05/16/18 Range/Units 10:50 WBC 6.5 (4.0-11.0) th/mm3 Hgb 12.5 (11.6-15.3) gm/dL Hct 38.8 (35.0-46.0) % Plt Count 270 (150-450) th/mm3 BMP 05/16/18 10:50 Sodium 141 Potassium 4.3 Chloride 109 H Carbon Dioxide 22.0 BUN 30 H Creatinine 0.99 Calcium 8.7 Cardiac Enzymes 05/16/18 05/16/18 Range/Units 10:50 10:50 Total Creatine Kinase 37 Cancelled (26-192) U/L Troponin I 0.03 (0.02-0.05) ng/mL Liver Function 05/16/18 Range/Units 10:50 Total Bilirubin 0.7 (0.2-1.0) mg/dL AST 38 H (15-37) U/L ALT 56 H (10-53) U/L Alkaline Phosphatase 123 H (45-117) U/L Albumin 4.0 (3.4-5.0) g/dL Urine 05/16/18 Range/Units 11:09 Urine Color Yellow (Yellw/Straw) Urine Clarity Clear (Clear) Urine pH 5.0 (5.0-8.5) Ur Specific [place] 1.011 (1.002-1.035) Urine Protein Negative (Neg-Trace) mg/dL Urine Glucose (UA) Negative (Negative) mg/dL - Imaging Impressions Chest X-Ray 05/16/18 10:44 CONCLUSION: Improved aeration. Caprini VTE Risk Assessment Caprini VTE Risk Assessment: Moderate/High Risk (score >= 2) Caprini Risk Assessment Model: Point Value = 1 Point Value = 2 Point Value = 3 Point Value = 5 Age 41-60 Minor surgery BMI > 25 kg/m2 Swollen legs Varicose veins or History of unexplained or recurrent spontaneous Oral contraceptives or hormone replacement Sepsis (< 1 month) Serious lung disease, including pneumonia (< 1 month) Abnormal pulmonary function Acute myocardial infarction Congestive heart failure (< 1 month) History of inflammatory bowel disease Medical patient at bed rest Age 61-74 Arthroscopic surgery Major open surgery (> 45 min) Laparoscopic surgery (> 45 min) Malignancy Confined to bed (> 72 hours) Immobilizing plaster cast Central venous access Age >= 75 History of VTE Family history of VTE Factor V Leiden Prothrombin [id number] Lupus anticoagulant Anticardiolipin antibodies Elevated serum homocysteine Heparin-induced thrombocytopenia Other congenital or acquired thrombophilia Stroke (< 1 month) Elective arthroplasty Hip, pelvis, or leg fracture Acute spinal cord injury (< 1 month) Prophylaxis Regimen: Total Risk Factor Score Risk Level Prophylaxis Regimen 0-1 Low Early ambulation 2 Moderate Order ONE of the following: *Sequential Compression Device (SCD) *Heparin 5000 units SQ BID 3-4 Higher Order ONE of the following medications: *Heparin 5000 units SQ TID *Enoxaparin/Lovenox 40 mg SQ daily (WT < 150 kg, CrCl > 30 mL/min) *Enoxaparin/Lovenox 30 mg SQ daily (WT < 150 kg, CrCl > 10-29 mL/min) *Enoxaparin/Lovenox 30 mg SQ BID (WT < 150 kg, CrCl > 30 mL/min) AND/OR *Sequential Compression Device (SCD) 5 or more Highest Order ONE of the following medications: *Heparin 5000 units SQ TID (Preferred with Epidurals) *Enoxaparin/Lovenox 40 mg SQ daily (WT < 150 kg, CrCl > 30 mL/min) *Enoxaparin/Lovenox 30 mg SQ daily (WT < 150 kg, CrCl > 10-29 mL/min) *Enoxaparin/Lovenox 30 mg SQ BID (WT < 150 kg, CrCl > 30 mL/min) AND *Sequential Compression Device (SCD) Assessment and Plan - Plan //Acute on chronic systolic CHF exacerbation //History of cardiac valve repair in January 2018. //History of hypertension. -Chest x-ray with bilateral small effusions, too small to tap. BNP 2446. -EKG shows paced rhythm. Patient without chest pain -Blood pressure low in the 80s systolic. Difficult to manage the need for diuresis and hypotension. Appreciate cardiology assistance. Cardiology consulted. Pacer interrogation ordered. Strict intake and output. Fluid restrictions. IV Lasix ordered. Monitor fluid status //History of aortic valve replacement. INR 1.6. Consultation to pharmacy for management. Appreciate assistance. //Chronic COPD. Continue Brio. Respiratory status is improving with diuresis, so Do not feel that this is a COPD exacerbation. Monitor respiratory status. Discussed Condition With: Patient, nurse, ED physician. H&P: Quality - VTE Deep Vein Thrombosis/Pulmonary Embolism Present on Admission: No
[2018-05-16] MEDS: Metoprolol Tartrate 25 MG Tablet PO SCH (20:32)
--- NOTE | 2018-05-16 21:21 | P.CONCA ---
History of Present Illness Consult date: 05/16/18 Primary Care Provider: Narda Torres MD Family Provider: Narda Torres MD Chief Complaint: shortness of breath History of Present Illness: Mrs. 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 The patient recently underwent placement of a RIVET HAMMER MACHINE OPERATOR-D device after she was found to worsening decline in her EF after TV and MV repair. Her EF at that time in the outpatient was calculated to be 20% with severe MR. THe patient reports since her RIVET HAMMER MACHINE OPERATOR-D she has not noticed a great improvement. She also reports decrease in urine output with po Lasix. She has received IV lasix and has improved her shortness of breath. Her NIBP readings remain low and therefore she has been hard to optimize on CHF medications. She appears to be on the warm and wet cascade. Review of Systems All other systems reviewed negative except as stated in HPI PMFSH - History History Provided By: Patient - Medical History Medical History: Medical History (Last Updated 05/16/18 @ 21:19 by Deniz Richard MD) Nonischemic cardiomyopathy (Acute) HBP (high blood pressure) (Acute) Nonischemic cardiomyopathy Pacemaker - Surgical History Surgical History: Surgical History (Last Updated 05/16/18 @ 21:18 by Deniz Richard MD) Hx of heart surgery (Acute) H/O tricuspid valve repair Hx of mitral valve repair - Family History Family History: Family History (Last Reviewed 05/16/18 @ 12:26 by JULIEN Matthews) Other Diabetes mellitus type 2 in nonobese - Tobacco History Second Hand Smoke Exposure: No Tobacco Use In Past 30 Days: No Smoking Status: Never smoker - Alcohol History How Often Do You Have a Drink Containing Alcohol: Never - Substance Use History Substance History: No History of Abuse - Travel History Recent Travel in the [place] Within the Last 8 Weeks: No Recent Travel Out of the Country Within the Last 8 Weeks: No - Immunization History Tetanus Immunization: Unsure Hx Influenza Vaccine This Season: Yes Medications and Allergies Active Medications: Active Medications Al Hydroxide/Mg Hydroxide (Milk Of Magnesia Liq) 30 ml PO Q12H PRN PRN Reason: Mild Constipation Aspirin (Ecotrin) 81 mg PO DAILY [facility] Bisacodyl (Dulcolax Supp) 10 mg RECTAL DAILY PRN PRN Reason: SEVERE CONSITIPATION Fluticasone/Vilanterol (Breo Ellipta 200/25 Mcg Inh) 1 puff INH DAILY [facility] Furosemide (Lasix Inj) 40 mg IV.PUSH BID@0900,1800 [facility] Lactulose (Lactulose Liq) 30 ml PO DAILY PRN PRN Reason: SEVERE CONSITIPATION Metoprolol Tartrate (Lopressor) 12.5 mg PO BID [facility] Last Admin: 05/16/18 20:32 Dose: Not Given Pharmacy Profile Note (Coumadin Consult Pharmacy) 1 each OTHER UNSCH PRN PRN Reason: PHARMACY DOCUMENTATION Potassium Chloride (Klor-Con 10) 10 meq PO BID [facility] Last Admin: 05/16/18 20:32 Dose: 10 meq Sennosides (Senokot) 17.2 mg PO Q12H PRN PRN Reason: Moderate Constipation Warfarin Sodium (Coumadin) 3 mg PO DAILY@1600 [facility] Last Admin: 05/16/18 17:59 Dose: Not Given Allergies Allergy/AdvReac Type Severity Reaction Status Date / Time No Known Allergies Allergy Verified 05/16/18 10:31 Home Medications Medication Instructions Recorded Confirmed Type fluticasone-vilanterol [Breo 1 inh INHALATION DAILY 04/21/18 05/16/18 History Ellipta] metoprolol tartrate 12.5 mg PO BID 04/21/18 05/16/18 History warfarin 3 mg PO DAILY 04/21/18 05/16/18 History aspirin [Aspir-81] 81 mg PO DAILY 05/16/18 05/16/18 History Exam Vital signs: Vital Signs 05/16/18 10:05 05/16/18 10:34 05/16/18 10:47 Temperature 97.3 F L Pulse Rate 92 H 91 H Respiratory Rate 16 24 Blood Pressure 117/73 111/69 Pulse Oximetry 99 97 96 05/16/18 10:48 05/16/18 11:25 05/16/18 16:00 Temperature 97.8 F Pulse Rate 80 Respiratory Rate 16 Blood Pressure 88/52 L Pulse Oximetry 97 97 95 05/16/18 19:22 Temperature 98.5 F Pulse Rate 81 Respiratory Rate 16 Blood Pressure 92/58 L Pulse Oximetry 97 Intake & Output 05/16/18 05/16/18 05/17/18 06:59 18:59 06:59 Intake Total 360 / 360 Balance 360 / 360 Weight 73.936 kg Intake: Oral 360 / 360 Other: Date of Last Bowel Movement 05/15/18 - Constitutional no acute distress - Routine HEENT Exam Head: Present: normocephalic Eye: Present: EOMI ENT: Present: mucous membranes moist - Routine Neck Exam Present: supple, JVD (JVP elevated to 12 cm with prominent V wave) - Routine Chest/Breast/Axilla Exam Chest wall: Absent: tenderness - Routine Respiratory Exam Present: crackles (at the bases bilaterally) - Routine Cardiovascular Exam Present: RRR, S1, S2, murmur (2/6 holosystolic at the apex), S3 - Routine Abdominal Exam Present: soft, normoactive bowel sounds - Routine Extremities Exam Present: edema (2+ bilateral) - Routine Skin Exam Present: warm - Routine Neurological Exam Present: alert, oriented X3 - Routine Psychiatric Exam Present: normal affect Results 05/16/18 10:50 05/16/18 10:50 Cardiac Enzymes 05/16/18 05/16/18 Range/Units 10:50 10:50 AST 38 H (15-37) U/L Troponin I 0.03 (0.02-0.05) ng/mL B-Natriuretic Peptide 2446 H (0-100) pg/mL Coagulation 05/16/18 05/16/18 Range/Units 10:50 10:50 PT 16.1 H (9.8-11.6) sec APTT 28.9 (24.3-30.1) sec B-Natriuretic Peptide 2446 H (0-100) pg/mL CBC 05/16/18 Range/Units 10:50 WBC 6.5 (4.0-11.0) th/mm3 RBC 4.56 (4.00-5.30) mil/mm3 Hgb 12.5 (11.6-15.3) gm/dL Hct 38.8 (35.0-46.0) % Plt Count 270 (150-450) th/mm3 Neut # (Auto) 4.2 (1.8-7.7) th/mm3 Lymph # (Auto) 1.7 (1.0-4.8) th/mm3 [place] # (Auto) 0.4 (0.0-0.9) th/mm3 Eos # (Auto) 0.2 (0.0-0.4) th/mm3 Baso # (Auto) 0.0 (0.0-0.2) th/mm3 Comprehensive Metabolic Panel 05/16/18 Range/Units 10:50 Sodium 141 (136-145) meq/L Potassium 4.3 (3.5-5.1) meq/L Chloride 109 H (98-107) meq/L Carbon Dioxide 22.0 (21.0-32.0) meq/L BUN 30 H (7-18) mg/dL Creatinine 0.99 (0.50-1.00) mg/dL Calcium 8.7 (8.5-10.1) mg/dL AST 38 H (15-37) U/L ALT 56 H (10-53) U/L Alkaline Phosphatase 123 H (45-117) U/L Total Protein 7.0 (6.4-8.2) g/dL Albumin 4.0 (3.4-5.0) g/dL Intake and Output 05/16/18 05/16/18 05/16/18 06:59 14:59 22:59 Intake Total 360 / 360 Balance 360 / 360 Intake: Oral 360 / 360 Other: Date of Last Bowel Movement 05/15/18 Weight 73.936 kg Patient Weight 05/17/18 06:59 Weight 73.936 kg Assessment and Plan - Assessment (1) Acute exacerbation of CHF (congestive heart failure) Code(s): I50.9 - Heart failure, unspecified Status: Acute - Plan The patient presents with an acute exacerbation of her congestive heart failure. Her oral medications have been difficult to titrate given her relative hypotension. Furthermore, it does not appear she diuresis well with po Lasix and will likely need to be placed on po Bumex upon d/c. At this junction, I would repeat a Transthoracic Echo to evaluate the degree of MR and to evaluate synchronous wall motion after CRTD placement. Her biotronik device will be interrogated. I would continue IV lasix at this time, hold BB and JENNIE-i right now. Optimally, we would like to place her on afterload reduction if she tolerates. I don't see a history of afib and will touch base with CV surgery regarding the ongoing need of Coumadin since she had a TV repair and MV repair. (1) Acute exacerbation of CHF (congestive heart failure) Qualifiers: Heart failure type: unspecified Qualified Code(s): I50.9 - Heart failure, unspecified
--- NOTE | 2018-05-16 21:35 | ECG ---
Date Performed: 05/16/2018 Time Performed: 13:04:15 PTAGE: 77 years EKG: ELECTRONIC ATRIAL PACEMAKER ELECTRONIC VENTRICULAR PACEMAKER PREVIOUS TRACING : 04/26/2018 21.30 Compared to previous tracing, atrial pacing is now ev ident. DOCTOR: Cristoabl Mims Interpretating Date/Time 05/16/2018 21:34:45
[2018-05-17 06:51] LABS: Baso % (Auto) 0.7 % (0.0-2.0); Eos # (Auto) 0.3 th/mm3 (0.0-0.4); Hematocrit 35.8 % (35.0-46.0); Hemoglobin 11.9 gm/dL (11.6-15.3); Lymph # (Auto) 2.3 th/mm3 (1.0-4.8); Lymph % (Auto) 34.5 % (9.0-44.0); Mean Corpuscular HGB Conc 33.2 % (32.0-36.0); Mean Corpuscular Hemoglobin 28.1 pg (27.0-34.0); Mean Corpuscular Volume 84.5 fL (80.0-100.0); Mean Platelet Volume 8.3 fL (7.0-11.0); Mono # (Auto) 0.4 th/mm3 (0.0-0.9); Mono % (Auto) 5.9 % (0.0-8.0); Neut # (Auto) 3.6 th/mm3 (1.8-7.7); Neut % (Auto) 54.9 % (16.0-70.0); Platelet Count 239 th/mm3 (150-450); Red Blood Count 4.24 mil/mm3 (4.00-5.30); Red Cell Distribution Width 16.4 % (11.6-17.2); White Blood Count 6.5 th/mm3 (4.0-11.0)
[2018-05-17 07:13] LABS: Alanine Aminotransferase 44 U/L (10-53); Albumin 3.4 g/dL (3.4-5.0); Alkaline Phosphatase 105 U/L (45-117); Anion Gap 9 meq/L (5-15); Aspartate Aminotransferase 26 U/L (15-37); Blood Urea Nitrogen 26 mg/dL (7-18); Calcium 8.4 mg/dL (8.5-10.1); Carbon Dioxide 27.3 meq/L (21.0-32.0); Chloride 108 meq/L (98-107); Glomerular Filtration Rate 52 mL/min (>89); Glucose,Random 90 mg/dL (74-106); Potassium 4.1 meq/L (3.5-5.1); Sodium 144 meq/L (136-145); Total Protein 6.4 g/dL (6.4-8.2)
[2018-05-17] MEDS: Metoprolol Tartrate 25 MG Tablet PO SCH ×2 (08:53→20:00)
--- NOTE | 2018-05-17 09:53 | P.PN ---
Subjective Interval history: follow up for SOB: pt. with minimal SOB, no dizziness, leg swelling improved. No CP. Diuresing well. Tele paced. Had a good night. No acute changes overnight Physical Exam Vital signs: Vital Signs 05/16/18 10:05 05/16/18 10:34 05/16/18 10:47 Temperature 97.3 F L Pulse Rate 92 H 91 H Respiratory Rate 16 24 Blood Pressure 117/73 111/69 Pulse Oximetry 99 97 96 05/16/18 10:48 05/16/18 11:25 05/16/18 16:00 Temperature 97.8 F Pulse Rate 80 Respiratory Rate 16 Blood Pressure 88/52 L Pulse Oximetry 97 97 95 05/16/18 19:22 05/16/18 20:00 05/16/18 23:26 Temperature 98.5 F 98.5 F Pulse Rate 81 92 H 89 Respiratory Rate 16 17 Blood Pressure 92/58 L 97/64 L Pulse Oximetry 97 96 96 05/17/18 00:10 05/17/18 05:06 05/17/18 07:13 Temperature 98.6 F Pulse Rate 91 H 91 H 79 Respiratory Rate 16 Blood Pressure 100/61 94/59 L Pulse Oximetry 96 95 05/17/18 08:47 Temperature Pulse Rate Respiratory Rate Blood Pressure Pulse Oximetry 95 Intake & Output 05/16/18 05/17/18 05/17/18 18:59 06:59 18:59 Intake Total 360 / 360 600 / 600 Balance 360 / 360 600 / 600 Weight 73.936 kg Intake: Oral 360 / 360 600 / 600 Other: # Voids 2 Date of Last Bowel Movement 05/15/18 05/15/18 Weight On Admission 73.936 kg Narrative: GENERAL: Well-nourished, well-developed patient in no apparent distress. SKIN: Warm and dry. HEAD: Atraumatic. Normocephalic. EYES: Pupils equal and round. No scleral icterus. No injection or drainage. ENT: No nasal bleeding or discharge. Mucous membranes pink and moist. NECK: Trachea midline. No JVD. CARDIOVASCULAR: Regular rate and rhythm. Unable to detect any murmurs rubs or gallops. AICD/pacemaker site with Steri-Strips in place. RESPIRATORY: No accessory muscle use. Clear to auscultation. Breath sounds equal bilaterally. GASTROINTESTINAL: Abdomen soft, non-tender, nondistended. Hepatic and splenic margins not palpable. MUSCULOSKELETAL: Extremities without clubbing, cyanosis, or edema. No obvious deformities. Pedal pulses 2+ bilaterally. NEUROLOGICAL: Awake and alert. No obvious cranial nerve deficits. Motor grossly within normal limits. Five out of 5 muscle strength in the arms and legs. Normal speech. PSYCHIATRIC: Appropriate mood and affect; insight and judgment normal. Results - Labs CBC & Chem 7: 05/17/18 05:39 05/19/18 12:15 Laboratory Results - last 24 hr 05/16/18 05/16/18 05/16/18 10:50 10:50 10:50 WBC 6.5 RBC 4.56 Hgb 12.5 Hct 38.8 MCV 85.2 MCH 27.3 MCHC 32.1 RDW 16.4 Plt Count 270 MPV 8.3 Neut % (Auto) 63.6 Lymph % (Auto) 26.3 [place] % (Auto) 6.0 Eos % (Auto) 3.4 Baso % (Auto) 0.7 Neut # (Auto) 4.2 Lymph # (Auto) 1.7 [place] # (Auto) 0.4 Eos # (Auto) 0.2 Baso # (Auto) 0.0 WBC Differential . Differential Comment Auto diff final PT 16.1 H INR 1.6 APTT 28.9 Sodium 141 Potassium 4.3 Chloride 109 H Carbon Dioxide 22.0 Anion Gap 10 BUN 30 H Creatinine 0.99 Estimated GFR 55 L Random Glucose 109 H Calcium 8.7 Magnesium 2.1 Total Bilirubin 0.7 AST 38 H ALT 56 H Alkaline Phosphatase 123 H Total Creatine Kinase 37 Troponin I 0.03 B-Natriuretic Peptide Total Protein 7.0 Albumin 4.0 Urine Color Urine Clarity Urine pH Ur Specific [place] Urine Protein Urine Glucose (UA) Urine Ketones Urine Occult Blood Urine Nitrate Urine Bilirubin Urine Urobilinogen Ur Leukocyte Esterase Urine WBC Ur Squamous Epith Cells Micro UA Comment Ur Microscopic Review Urine Culture Comments 05/16/18 05/16/18 05/16/18 10:50 10:50 11:09 WBC RBC Hgb Hct MCV MCH MCHC RDW Plt Count MPV Neut % (Auto) Lymph % (Auto) [place] % (Auto) Eos % (Auto) Baso % (Auto) Neut # (Auto) Lymph # (Auto) [place] # (Auto) Eos # (Auto) Baso # (Auto) WBC Differential Differential Comment PT INR APTT Sodium Potassium Chloride Carbon Dioxide Anion Gap BUN Creatinine Estimated GFR Random Glucose Calcium Magnesium Cancelled Total Bilirubin AST ALT Alkaline Phosphatase Total Creatine Kinase Cancelled Troponin I B-Natriuretic Peptide 2446 H Total Protein Albumin Urine Color Yellow Urine Clarity Clear Urine pH 5.0 Ur Specific [place] 1.011 Urine Protein Negative Urine Glucose (UA) Negative Urine Ketones Negative Urine Occult Blood Small H Urine Nitrate Negative Urine Bilirubin Negative Urine Urobilinogen Less than 2 Ur Leukocyte Esterase Negative Urine WBC Less than 1 Ur Squamous Epith Cells <1 Micro UA Comment Culture not ind Ur Microscopic Review Not Reportable Urine Culture Comments Culture not ind 05/17/18 05/17/18 05:38 05:39 WBC 6.5 RBC 4.24 Hgb 11.9 Hct 35.8 MCV 84.5 MCH 28.1 MCHC 33.2 RDW 16.4 Plt Count 239 MPV 8.3 Neut % (Auto) 54.9 Lymph % (Auto) 34.5 [place] % (Auto) 5.9 Eos % (Auto) 4.0 Baso % (Auto) 0.7 Neut # (Auto) 3.6 Lymph # (Auto) 2.3 [place] # (Auto) 0.4 Eos # (Auto) 0.3 Baso # (Auto) 0.0 WBC Differential . Differential Comment Auto diff final PT INR APTT Sodium 144 Potassium 4.1 Chloride 108 H Carbon Dioxide 27.3 Anion Gap 9 BUN 26 H Creatinine 1.04 H Estimated GFR 52 L Random Glucose 90 Calcium 8.4 L Magnesium Total Bilirubin 0.6 AST 26 ALT 44 Alkaline Phosphatase 105 Total Creatine Kinase Troponin I B-Natriuretic Peptide Total Protein 6.4 D Albumin 3.4 D Urine Color Urine Clarity Urine pH Ur Specific [place] Urine Protein Urine Glucose (UA) Urine Ketones Urine Occult Blood Urine Nitrate Urine Bilirubin Urine Urobilinogen Ur Leukocyte Esterase Urine WBC Ur Squamous Epith Cells Micro UA Comment Ur Microscopic Review Urine Culture Comments - Imaging Impressions Chest X-Ray 05/16/18 10:44 CONCLUSION: Improved aeration. Assessment and Plan - Assessment (1) Acute exacerbation of CHF (congestive heart failure) Code(s): I50.9 - Heart failure, unspecified Status: Acute (2) Nonischemic cardiomyopathy Code(s): I42.8 - Other cardiomyopathies Status: Chronic (3) Hx of heart surgery Code(s): Z98.890 - Other specified postprocedural states Status: Chronic (4) Hypotension Code(s): I95.9 - Hypotension, unspecified Status: Acute - Plan 77-year-old female with a history of CHF, COPD, hypertension, ejection fraction recently measured 20% by echocardiogram, as well as recent admission for CHF exacerbation, during which pacer/AICD was placed by Dr. Baires. She presents with 4 day history of worsening shortness of breath both with exertion and at rest, nocturnal dyspnea, bilateral lower extremity edema, weight gain of 3 pounds over the past 4 days. Acute on chronic systolic CHF exacerbation, hx of severe MR. CXR with small bilat pleural eff. 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 Non ischemic cardiomyopathy -continue with IV Lasix -appreciate card input, will need Bumex when dc -low dose Lopressor 12.5 mg po bid -hold JENNIE for now -2D echo pending -strict I/O -Fluid restriction Hx of recent biventricular defibrillator (04/2018) -device interrogated, report noted -cardiology following Hypotension History of hypertension -will have RN check BP on both arms -hold JENNIE -resume BB with hold parameters Hx recent valve repair, on chronic anticoagulation INR 1.5, continue with Coumadin Discussed with cardiology, will find out from cardiothoracic surgeon if the patient needs any more anticoagulation. For now continue Chronic COPD, controlled -Continue Brio. Respiratory status is improving with diuresis, so Do not feel that this is a COPD exacerbation. -Monitor respiratory status. Patient requires inpatient admission due to continued IV diuresis and monitoring of vital signs. Transfer to cardiovascular unit. D/W pt, RN, CM, Dr. Richard (1) Acute exacerbation of CHF (congestive heart failure) Qualifiers: Heart failure type: unspecified Qualified Code(s): I50.9 - Heart failure, unspecified (4) Hypotension Qualifiers: Hypotension type: unspecified hypotension type Qualified Code(s): I95.9 - Hypotension, unspecified
[2018-05-17 10:28] LABS: INR 1.5 Ratio; Prothrombin Time 14.8 sec (9.8-11.6)
--- NOTE | 2018-05-17 12:06 | P.PNCA ---
Subjective Interval history: Reports improvement in shortness of breath after IV lasix. BP has been running low so patient has not received BB. Physical Exam Vital signs: Vital Signs 05/16/18 16:00 05/16/18 19:22 05/16/18 20:00 Temperature 97.8 F 98.5 F Pulse Rate 80 81 92 H Respiratory Rate 16 16 Blood Pressure 88/52 L 92/58 L Pulse Oximetry 95 97 96 05/16/18 23:26 05/17/18 00:10 05/17/18 05:06 Temperature 98.5 F Pulse Rate 89 91 H 91 H Respiratory Rate 17 Blood Pressure 97/64 L 100/61 Pulse Oximetry 96 96 05/17/18 07:13 05/17/18 08:47 05/17/18 11:35 Temperature 98.6 F 97.8 F Pulse Rate 79 90 Respiratory Rate 16 18 Blood Pressure 94/59 L 87/58 L Pulse Oximetry 95 95 93 L Intake & Output 05/16/18 05/17/18 05/17/18 18:59 06:59 18:59 Intake Total 360 / 360 600 / 600 356 / 356 Balance 360 / 360 600 / 600 356 / 356 Weight 73.936 kg Intake: Oral 360 / 360 600 / 600 356 / 356 Other: # Voids 2 Date of Last Bowel Movement 05/15/18 05/15/18 Weight On Admission 73.936 kg - Constitutional no acute distress - Routine HEENT Exam Eye: Present: EOMI, PERRL - Routine Respiratory Exam Present: crackles (at bases) - Routine Cardiovascular Exam Present: RRR, S1, S2, murmur (2/6 SADIE over apex) - Routine Abdominal Exam Present: soft, normoactive bowel sounds - Routine Extremities Exam Present: edema (1-2+) - Routine Neurological Exam Present: alert, oriented X3 Assessment and Plan - Assessment (1) Acute exacerbation of CHF (congestive heart failure) Code(s): I50.9 - Heart failure, unspecified Status: Acute - Plan 05/16 The patient presents with an acute exacerbation of her congestive heart failure. Her oral medications have been difficult to titrate given her relative hypotension. Furthermore, it does not appear she diuresis well with po Lasix and will likely need to be placed on po Bumex upon d/c. At this junction, I would repeat a Transthoracic Echo to evaluate the degree of MR and to evaluate synchronous wall motion after CRTD placement. Her biotronik device will be interrogated. I would continue IV lasix at this time, hold BB and JENNIE-i right now. Optimally, we would like to place her on afterload reduction if she tolerates. I don't see a history of afib and will touch base with CV surgery regarding the ongoing need of Coumadin since she had a TV repair and MV repair. 05/17 Diuresing well, would continue IV Lasix BID. Awaiting echo . BIV functioning properly. Will attempt to add BB today. Spoke with Dr. Hurley, since it has been 3 months ok to d/c warfarin. (1) Acute exacerbation of CHF (congestive heart failure) Qualifiers: Heart failure type: unspecified Qualified Code(s): I50.9 - Heart failure, unspecified
--- NOTE | 2018-05-17 17:58 | ECHRPT ---
Indication: ASSESS RWMA CONCLUSIONS The left ventricular systolic function is severely reduced with an estimated ejection fraction less than 20%. Mildly dilated left ventricle. Wall thickness is normal. There is global left ventricular dysfunction. A pacemaker wire is noted. The right ventricular systoilc function is moderately decreased. The left atrial size is moderately dilated. There is a pacemaker wire present in the right atrial cavity. The right atrial size is mildly dilated. Moderate thickening of the mitral valve leaflets. Calcification of both mitral valve leaflets. Status post mitral annular valvuloplasty ring Severe mitral annular calcification. Moderate mitral valve regurgitation. Moderate mitral valve stenosis. Mitral valve mean gradient is 8.3 mmHg. Aortic valve sclerosis is present. Trace aortic valve regurgitation. Moderate thickening of the tricuspid valve leaflets. There is severe tricuspid regurgitation. The estimated pulmonary arterial pressure is 64.8 mmHg. Status post tricuspid valve annuloplasty ring Trivial pulmonary valve regurgitation. The inferior vena cava is dilated. There is less than 50% respiratory change in dimension of the inferior vena cava (abnormal). BP: / HR: Rhythm: Sinus MEASUREMENTS (Male / Female) Normal Values Technical Quality:Good 2D ECHO LV Diastolic Diameter PLAX 5.2 cm 4.2 - 5.9 / 3.9 - 5.3 cm LV Systolic Diameter PLAX 4.8 cm IVS Diastolic Thickness 1.1 cm 0.6 - 1.0 / 0.6 - 0.9 cm LVPW Diastolic Thickness 1.1 cm 0.6 - 1.0 / 0.6 - 0.9 cm LV Relative Wall Thickness 0.4 RV Internal Dim ED PLAX 3.1 cm LVOT Diameter 2.0 cm LA Systolic Diameter LX 3.9 cm 3.0 - 4.0 / 2.7 - 3.8 cm LV Ejection Fraction MOD 4C 20.0 % LV Ejection Fraction 4C AL 20.8 % M-MODE Aortic Root Diameter MM 2.8 cm LA Systolic Diameter MM 3.8 cm LA Ao Ratio MM 1.4 AV Cusp Separation MM 1.8 cm DOPPLER AV Peak Velocity 81.4 cm/s AV Peak Gradient 2.7 mmHg AI Peak Velocity 170.0 cm/s AI Peak Gradient 11.6 mmHg AI Pressure Half Time 484.0 ms LVOT Peak Velocity 58.7 cm/s LVOT Peak Gradient 1.4 mmHg AV Area Cont Eq pk 2.3 cm MV Peak Velocity 199.3 cm/s MV Peak Gradient 15.9 mmHg MV Mean Velocity 129.3 cm/s MV Mean Gradient 8.3 mmHg MV Area PHT 4.0 cm LV E' Septal Velocity 2.2 cm/s TR Peak Velocity 370.0 cm/s TR Peak Gradient 54.8 mmHg Right Atrial Pressure 10.0 mmHg Pulmonary Artery Systolic Pressu 64.8 mmHg Right Ventricular Systolic Press 64.8 mmHg PV Peak Velocity 80.1 cm/s PV Peak Gradient 2.6 mmHg FINDINGS LEFT VENTRICLE The left ventricular systolic function is severely reduced with an estimated ejection fraction less than 20%. Mildly dilated left ventricle. Wall thickness is normal. There is global left ventricular dysfunction. RIGHT VENTRICLE A pacemaker wire is noted. The right ventricular systoilc function is moderately decreased. LEFT ATRIUM The left atrial size is moderately dilated. RIGHT ATRIUM There is a pacemaker wire present in the right atrial cavity. The right atrial size is mildly dilated. ATRIAL SEPTUM Normal atrial septal thickness without atrial level shunting by limited color doppler interrogation. AORTA The aortic root and proximal ascending aorta are normal in size on limited imaging. MITRAL VALVE Moderate thickening of the mitral valve leaflets. Calcification of both mitral valve leaflets. Status post mitral annular valvuloplasty ring Severe mitral annular calcification. Moderate mitral valve regurgitation. Moderate mitral valve stenosis. Mitral valve mean gradient is 8.3 mmHg. AORTIC VALVE Trileaflet aortic valve. Aortic valve sclerosis is present. Trace aortic valve regurgitation. TRICUSPID VALVE Moderate thickening of the tricuspid valve leaflets. There is severe tricuspid regurgitation. The estimated pulmonary arterial pressure is 64.8 mmHg. Status post tricuspid valve annuloplasty ring PULMONARY VALVE Trivial pulmonary valve regurgitation. VESSELS The inferior vena cava is dilated. There is less than 50% respiratory change in dimension of the inferior vena cava (abnormal). PERICARDIUM No pericardial effusion. Leland Houston MD, FACC (Electronically Signed) Final Date:17 May 2018 17:56
--- NOTE | 2018-05-18 07:12 | P.PNCA ---
Subjective Interval history: No acute events, Physical Exam Vital signs: Vital Signs 05/17/18 07:13 05/17/18 08:02 05/17/18 08:47 Temperature 98.6 F Pulse Rate 79 90 Respiratory Rate 16 Blood Pressure 94/59 L Pulse Oximetry 95 95 05/17/18 11:35 05/17/18 15:50 05/17/18 15:53 Temperature 97.8 F 97.9 F Pulse Rate 90 87 96 H Respiratory Rate 18 18 Blood Pressure 87/58 L 100/57 L Pulse Oximetry 93 L 96 05/17/18 19:53 05/17/18 19:56 05/17/18 19:57 Temperature 98.5 F Pulse Rate 91 H Respiratory Rate 18 Blood Pressure 97/66 L Pulse Oximetry 97 97 97 05/17/18 20:00 05/17/18 23:59 05/18/18 00:00 Temperature 98.7 F Pulse Rate 97 H 94 H 91 H Respiratory Rate 18 Blood Pressure 88/56 L Pulse Oximetry 95 05/18/18 04:00 Temperature 97.8 F Pulse Rate 81 Respiratory Rate 17 Blood Pressure 101/64 Pulse Oximetry 96 Intake & Output 05/17/18 05/18/18 05/18/18 18:59 06:59 18:59 Intake Total 356 / 356 738 / 738 Output Total 700 / 700 1900 / 1900 Balance -344 / -344 -1162 / -1162 Intake: Oral 356 / 356 738 / 738 Output: Urine 700 / 700 1900 / 1900 Other: # Voids 1 Date of Last Bowel Movement 05/15/18 - Constitutional no acute distress - Routine HEENT Exam Head: Present: normocephalic Eye: Present: PERRL ENT: Present: mucous membranes moist - Routine Neck Exam Present: JVD - Routine Respiratory Exam Present: CTA bilaterally - Routine Cardiovascular Exam Present: RRR, S1, S2, murmur (2/6 SADIE over apex) - Routine Abdominal Exam Present: soft - Routine Extremities Exam Present: edema (1+) - Routine Neurological Exam Present: alert, oriented X3 Assessment and Plan - Assessment (1) Acute exacerbation of CHF (congestive heart failure) Code(s): I50.9 - Heart failure, unspecified Status: Acute - Plan 05/16 The patient presents with an acute exacerbation of her congestive heart failure. Her oral medications have been difficult to titrate given her relative hypotension. Furthermore, it does not appear she diuresis well with po Lasix and will likely need to be placed on po Bumex upon d/c. At this junction, I would repeat a Transthoracic Echo to evaluate the degree of MR and to evaluate synchronous wall motion after CRTD placement. Her biotronik device will be interrogated. I would continue IV lasix at this time, hold BB and JENNIE-i right now. Optimally, we would like to place her on afterload reduction if she tolerates. I don't see a history of afib and will touch base with CV surgery regarding the ongoing need of Coumadin since she had a TV repair and MV repair. 05/17 Diuresing well, would continue IV Lasix BID. Awaiting echo . BIV functioning properly. Will attempt to add BB today. Spoke with Dr. Hurley, since it has been 3 months ok to d/c warfarin. 05/18 Echo shows The left ventricular systolic function is severely reduced with an estimated ejection fraction less than 20%. Mildly dilated left ventricle. Wall thickness is normal. There is global left ventricular dysfunction. A pacemaker wire is noted. The right ventricular systoilc function is moderately decreased. The left atrial size is moderately dilated. There is a pacemaker wire present in the right atrial cavity. The right atrial size is mildly dilated. Moderate thickening of the mitral valve leaflets. Calcification of both mitral valve leaflets. Status post mitral annular valvuloplasty ring Severe mitral annular calcification. Moderate mitral valve regurgitation. Moderate mitral valve stenosis. Mitral valve mean gradient is 8.3 mmHg. would like to continue IV diuresis and start low dose metoprolol today, still volume up. Given elevated mitral gradient important to control HR in the context of PH. (1) Acute exacerbation of CHF (congestive heart failure) Qualifiers: Heart failure type: unspecified Qualified Code(s): I50.9 - Heart failure, unspecified
[2018-05-18] MEDS: Metoprolol Tartrate 25 MG Tablet PO SCH ×2 (10:06→20:36)
[2018-05-18 10:22] LABS: INR 1.3 Ratio; Prothrombin Time 12.9 sec (9.8-11.6)
[2018-05-18] MEDS ORDERED: Metoprolol Tartrate 25 MG Tablet PO ONE (13:08)
--- NOTE | 2018-05-18 15:24 | P.PN ---
Subjective Interval history: follow up for SOB: pt. with minimal SOB, no dizziness, leg swelling improved. No CP. Diuresing well. Tele paced. Had a good night. No acute changes overnight Physical Exam Vital signs: Vital Signs 05/17/18 15:50 05/17/18 15:53 05/17/18 19:53 Temperature 97.9 F 98.5 F Pulse Rate 87 96 H 91 H Respiratory Rate 18 18 Blood Pressure 100/57 L 97/66 L Pulse Oximetry 96 97 05/17/18 19:56 05/17/18 19:57 05/17/18 20:00 Temperature Pulse Rate 97 H Respiratory Rate Blood Pressure Pulse Oximetry 97 97 05/17/18 23:59 05/18/18 00:00 05/18/18 04:00 Temperature 98.7 F 97.8 F Pulse Rate 94 H 91 H 81 Respiratory Rate 18 17 Blood Pressure 88/56 L 101/64 Pulse Oximetry 95 96 05/18/18 07:41 05/18/18 08:17 05/18/18 12:00 Temperature 97.7 F 97.4 F L Pulse Rate 86 78 100 H Respiratory Rate 12 12 Blood Pressure 103/67 92/56 L Pulse Oximetry 96 95 Intake & Output 05/17/18 05/18/18 05/18/18 18:59 06:59 18:59 Intake Total 356 / 356 738 / 738 447 / 447 Output Total 700 / 700 1900 / 1900 Balance -344 / -344 -1162 / -1162 447 / 447 Intake: Oral 356 / 356 738 / 738 447 / 447 Output: Urine 700 / 700 1900 / 1900 Other: # Voids 1 Date of Last Bowel Movement 05/15/18 Results - Labs CBC & Chem 7: 05/17/18 05:39 05/17/18 05:38 Laboratory Results - last 24 hr 05/18/18 09:40 PT 12.9 H INR 1.3 Assessment and Plan - Assessment (1) Acute exacerbation of CHF (congestive heart failure) Code(s): I50.9 - Heart failure, unspecified Status: Acute (2) Nonischemic cardiomyopathy Code(s): I42.8 - Other cardiomyopathies Status: Chronic (3) Hx of heart surgery Code(s): Z98.890 - Other specified postprocedural states Status: Chronic (4) Hypotension Code(s): I95.9 - Hypotension, unspecified Status: Acute - Plan 77-year-old female with a history of CHF, COPD, hypertension, ejection fraction recently measured 20% by echocardiogram, as well as recent admission for CHF exacerbation, during which pacer/AICD was placed by Dr. Baires. She presents with 4 day history of worsening shortness of breath both with exertion and at rest, nocturnal dyspnea, bilateral lower extremity edema, weight gain of 3 pounds over the past 4 days. Acute on chronic systolic CHF exacerbation, hx of severe MR. CXR with small bilat pleural eff. 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 Non ischemic cardiomyopathy -continue with IV Lasix -appreciate card input, will need Bumex when dc -low dose Lopressor 12.5 mg po bid -hold JENNIE for now -2D echo results noted, EF severely reduced, less than 20%. Global left ventricular dysfunction. Moderate thickening of mitral valve leaflets, moderate mitral valve regurgitation, moderate mitral valve stenosis. -Cardiology recommends to continue with diuresis. -strict I/O -Fluid restriction Hx of recent biventricular defibrillator (04/2018) -device interrogated, report noted -cardiology following Hypotension History of hypertension -will have RN check BP on both arms -hold JENNIE -resume BB with hold parameters Hx recent valve repair, on chronic anticoagulation Dr. Richard d/w CT surgery, ok to dc. Was on Coumadin for x 3 months post valve repair Chronic COPD, controlled -Continue Brio. Respiratory status is improving with diuresis, so Do not feel that this is a COPD exacerbation. -Monitor respiratory status. waiting for tx to cardiac unit d/w pt at length, multiple questions about her disease process and what is next. Concerned that she is not improving D/W pt, RN, CM (1) Acute exacerbation of CHF (congestive heart failure) Qualifiers: Heart failure type: unspecified Qualified Code(s): I50.9 - Heart failure, unspecified (4) Hypotension Qualifiers: Hypotension type: unspecified hypotension type Qualified Code(s): I95.9 - Hypotension, unspecified
[2018-05-19 04:53] LABS: INR 1.3 Ratio; Prothrombin Time 13.3 sec (9.8-11.6)
[2018-05-19] MEDS: Metoprolol Tartrate 25 MG Tablet PO SCH ×2 (08:44→20:32)
--- NOTE | 2018-05-19 12:50 | P.PNIM ---
Physical Exam Vital signs: Vital Signs 05/18/18 16:00 05/18/18 18:22 05/18/18 20:00 Temperature 97.6 F 97.4 F L Pulse Rate 94 H 104 H 94 H Respiratory Rate 12 18 Blood Pressure 95/57 L 93/60 L Pulse Oximetry 95 96 05/19/18 00:00 05/19/18 04:00 05/19/18 08:00 Temperature 98.1 F 97.6 F 97.4 F L Pulse Rate 99 H 91 H 98 H Respiratory Rate 17 17 19 Blood Pressure 101/75 106/67 109/66 Pulse Oximetry 97 94 L 96 05/19/18 10:55 05/19/18 12:00 Temperature 97.9 F Pulse Rate 102 H Respiratory Rate 19 Blood Pressure 108/70 Pulse Oximetry 97 96 Intake & Output 05/18/18 05/19/18 05/19/18 18:59 06:59 18:59 Intake Total 447 / 447 240 / 240 Output Total 700 / 700 Balance 447 / 447 -460 / -460 Weight 72.3 kg Intake: Oral 447 / 447 240 / 240 Output: Urine 700 / 700 Other: Date of Last Bowel Movement 05/18/18 Results - Labs CBC & Chem 7: 05/17/18 05:39 05/17/18 05:38 Laboratory Results - last 24 hr 05/19/18 03:32 PT 13.3 H INR 1.3 Assessment and Plan - Assessment (1) Acute exacerbation of CHF (congestive heart failure) Code(s): I50.9 - Heart failure, unspecified Status: Acute (2) Nonischemic cardiomyopathy Code(s): I42.8 - Other cardiomyopathies Status: Chronic (3) Hx of heart surgery Code(s): Z98.890 - Other specified postprocedural states Status: Chronic (4) Hypotension Code(s): I95.9 - Hypotension, unspecified Status: Acute - Plan 77-year-old female with a history of CHF, COPD, hypertension, ejection fraction recently measured 20% by echocardiogram, as well as recent admission for CHF exacerbation, during which pacer/AICD was placed by Dr. Baires. She presents with 4 day history of worsening shortness of breath both with exertion and at rest, nocturnal dyspnea, bilateral lower extremity edema, weight gain of 3 pounds over the past 4 days. //Acute on chronic systolic CHF exacerbation, hx of severe MR. CXR with small bilat pleural eff. 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 //Non ischemic cardiomyopathy -continue with IV Lasix -appreciate card input, will need Bumex when dc -low dose Lopressor 12.5 mg po bid -hold JENNIE for now -2D echo results noted, EF severely reduced, less than 20%. Global left ventricular dysfunction. Moderate thickening of mitral valve leaflets, moderate mitral valve regurgitation, moderate mitral valve stenosis. -Cardiology recommends to continue with diuresis. = 05/19 diuresis upper cardiology. Continue strict intake and output, fluid restriction follow-up electrolytes today. //Hx of recent biventricular defibrillator (04/2018) -device interrogated, report noted -cardiology following //Hypotension //History of hypertension -will have RN check BP on both arms -hold JENNIE -resume BB with hold parameters //Hx recent valve repair, on chronic anticoagulation Dr. Richard d/w CT surgery, ok to dc. Was on Coumadin for x 3 months post valve repair //Chronic COPD, controlled -Continue Brio. Respiratory status is improving with diuresis, so Do not feel that this is a COPD exacerbation. -Monitor respiratory status. D/W pt, RN, CM Discharge Planning: pt recommends home with no PT. We will need cardiology clearance (1) Acute exacerbation of CHF (congestive heart failure) Qualifiers: Heart failure type: unspecified Qualified Code(s): I50.9 - Heart failure, unspecified (4) Hypotension Qualifiers: Hypotension type: unspecified hypotension type Qualified Code(s): I95.9 - Hypotension, unspecified
[2018-05-19 13:30] LABS: Calcium 8.8 mg/dL (8.5-10.1); Carbon Dioxide 29.5 meq/L (21.0-32.0); Potassium 3.7 meq/L (3.5-5.1)
[2018-05-20 06:17] LABS: Baso % (Auto) 0.5 % (0.0-2.0); Eos # (Auto) 0.3 th/mm3 (0.0-0.4); Eos % (Auto) 4.2 % (0.0-4.0); Hematocrit 38.9 % (35.0-46.0); Hemoglobin 12.6 gm/dL (11.6-15.3); Lymph # (Auto) 1.9 th/mm3 (1.0-4.8); Lymph % (Auto) 24.8 % (9.0-44.0); Mean Corpuscular HGB Conc 32.5 % (32.0-36.0); Mean Corpuscular Hemoglobin 27.3 pg (27.0-34.0); Mean Corpuscular Volume 84.2 fL (80.0-100.0); Mean Platelet Volume 8.3 fL (7.0-11.0); Mono # (Auto) 0.5 th/mm3 (0.0-0.9); Mono % (Auto) 6.3 % (0.0-8.0); Neut % (Auto) 64.2 % (16.0-70.0); Platelet Count 252 th/mm3 (150-450); Red Blood Count 4.63 mil/mm3 (4.00-5.30); Red Cell Distribution Width 16.2 % (11.6-17.2); White Blood Count 7.8 th/mm3 (4.0-11.0)
[2018-05-20 06:24] LABS: INR 1.2 Ratio; Prothrombin Time 12.2 sec (9.8-11.6)
[2018-05-20 06:44] LABS: Albumin 3.5 g/dL (3.4-5.0); Calcium 8.6 mg/dL (8.5-10.1); Magnesium 2.4 mg/dL (1.5-2.5); Phosphorus 3.8 mg/dL (2.5-4.9)
[2018-05-20] MEDS: Metoprolol Tartrate 25 MG Tablet PO SCH (08:15)
[2018-05-20 08:35] VITALS: BP 101/65; RESP 20; TEMP 98.3
--- NOTE | 2018-05-20 09:26 | P.PNCA ---
Subjective Interval history: Patient doing well no SOB. Edema improved quite significantly. Physical Exam Vital signs: Vital Signs 05/19/18 10:55 05/19/18 12:00 05/19/18 16:00 Temperature 97.9 F 97.4 F L Pulse Rate 101 H 96 H Respiratory Rate 19 19 Blood Pressure 108/70 114/64 Pulse Oximetry 97 96 97 05/19/18 20:00 05/20/18 00:00 05/20/18 04:00 Temperature 97.8 F 97.9 F 97.6 F Pulse Rate 93 H 111 H 97 H Respiratory Rate 18 18 19 Blood Pressure 100/57 L 112/69 104/68 Pulse Oximetry 95 97 93 L 05/20/18 08:00 Temperature 98.3 F Pulse Rate 97 H Respiratory Rate 20 Blood Pressure 101/65 Pulse Oximetry 94 L Intake & Output 05/19/18 05/20/18 05/20/18 18:59 06:59 18:59 Intake Total 580 / 580 120 / 120 Output Total 900 / 900 700 / 700 Balance -320 / -320 -580 / -580 Weight 71.7 kg Intake: Oral 580 / 580 120 / 120 Output: Urine 900 / 900 700 / 700 Other: # Voids 2 Date of Last Bowel Movement 05/18/18 - Constitutional no acute distress (JVP at ) - Routine HEENT Exam Eye: Present: EOMI - Routine Neck Exam Absent: JVD - Routine Respiratory Exam Present: CTA bilaterally - Routine Cardiovascular Exam Present: RRR, S1, S2, murmur (2/6 HSM at apex) - Routine Abdominal Exam Present: soft, normoactive bowel sounds - Routine Extremities Exam Present: edema (trace) - Routine Neurological Exam Present: alert, oriented X3 Assessment and Plan - Assessment (1) Acute exacerbation of CHF (congestive heart failure) Code(s): I50.9 - Heart failure, unspecified Status: Acute - Plan Patient has diuresed quite well during this hospital course. I reviewed the case with Dr. Hurley. The MR is moderate and as such I would not push for any intervention on the valve itself at this time. I would change the patient to Bumex 1 mg po qday. Additionally, her renal function and blood pressure has been stable so I would like to add Lisinopril 2.5mg po qday. Her medications have not been titrated 2/2 to concerns for hypotension. We re-enforced CHF education (fluid restriction, low sodium). We can re-assess her LV function as an outpt. The ROLL BUILDER-D appears to functioning appropriately. In the future, if she tolerates Lisinopril we can consider switching to Entresto. Furthermore, we discussed the possibility of Cardiomems to monitor her volume status more closely as well. She will follow up as an outpatient with [facility] in 1-2 weeks with repeat lab work. Thank you for allowing me to participate in the care of Mrs. Alberto. (1) Acute exacerbation of CHF (congestive heart failure) Qualifiers: Heart failure type: unspecified Qualified Code(s): I50.9 - Heart failure, unspecified
[2018-05-20 09:32] VITALS: PULSE 109
--- NOTE | 2018-05-20 09:54 | P.DS ---
Date of admission: 05/17/18 11:28 Primary care physician: Narda Torres MD Brief History from admission: 77-year-old female with a history of CHF, COPD, hypertension, ejection fraction recently measured 20% by echocardiogram, as well as recent admission for CHF exacerbation, during which pacer was placed by Dr. Baires. She presents with 4 day history of worsening shortness of breath both with exertion and at rest, nocturnal dyspnea, bilateral lower extremity edema, weight gain of 3 pounds over the past 4 days. She denies any chest pain. Denies any cough. Denies any nausea or vomiting. She has received Lasix in the ER, and currently feels much improved. She says she is not ready to go home right now however. Patient has not been on fluid restrictions. She has been taking her medications as prescribed DS: Diagnosis - Discharge Diagnosis (1) Acute exacerbation of CHF (congestive heart failure) Status: Acute (2) Nonischemic cardiomyopathy Status: Chronic (3) Hx of heart surgery Status: Chronic (4) Hypotension Status: Acute DS: Medications - Discharge Medications Prescriptions: bumetanide 1 mg PO DAILY 30 Days #30 tab lisinopril 2.5 mg PO DAILY 30 Days #15 tab DS: Summary Hospital Course: BNP found to be 2446 on admission. No pulmonary edema on chest x-ray. Patient felt much better after diuresis, and diuresis was continued. Cardiology was consulted, echocardiogram showed ejection fraction less than 20%. Patient eventually feeling better on optimized medication regimen. She will follow-up with cardiology as outpatient. For problem based summary from most recent progress note, please see below. 77-year-old female with a history of CHF, COPD, hypertension, ejection fraction recently measured 20% by echocardiogram, as well as recent admission for CHF exacerbation, during which pacer/AICD was placed by Dr. Baires. She presents with 4 day history of worsening shortness of breath both with exertion and at rest, nocturnal dyspnea, bilateral lower extremity edema, weight gain of 3 pounds over the past 4 days. //Acute on chronic systolic CHF exacerbation, hx of severe MR. CXR with small bilat pleural eff. 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 //Non ischemic cardiomyopathy -continue with IV Lasix -appreciate card input, will need Bumex when dc -low dose Lopressor 12.5 mg po bid -hold JENNIE for now -2D echo results noted, EF severely reduced, less than 20%. Global left ventricular dysfunction. Moderate thickening of mitral valve leaflets, moderate mitral valve regurgitation, moderate mitral valve stenosis. -Cardiology recommends to continue with diuresis. = 05/19 diuresis upper cardiology. Continue strict intake and output, fluid restriction follow-up electrolytes today. = 05/20. Cleared for discharge by cardiology. Start lisinopril, Bumex. Follow- up with cardiology as outpatient. //Hx of recent biventricular defibrillator (04/2018) -device interrogated, report noted -cardiology following //Hypotension //History of hypertension -will have RN check BP on both arms -hold JENNIE -resume BB with hold parameters //Hx recent valve repair, on chronic anticoagulation Dr. Richard d/w CT surgery, ok to dc. Was on Coumadin for x 3 months post valve repair //Chronic COPD, controlled -Continue Brio. Respiratory status is improving with diuresis, so Do not feel that this is a COPD exacerbation. -Monitor respiratory status. D/W pt, RN, CM Discharge Planning: pt recommends home with no PT. By cardiology. Follow-up with cardiology as outpatient. - Time Spent with Patient Total time spent providing and/or coordinating discharge services: Greater than 30 minutes - Quality: VTE Deep Vein Thrombosis/Pulmonary Embolism Present on Admission: No Exam Vital signs: Vital Signs 05/19/18 10:55 05/19/18 12:00 05/19/18 16:00 Temperature 97.9 F 97.4 F L Pulse Rate 101 H 96 H Respiratory Rate 19 19 Blood Pressure 108/70 114/64 Pulse Oximetry 97 96 97 05/19/18 20:00 05/20/18 00:00 05/20/18 04:00 Temperature 97.8 F 97.9 F 97.6 F Pulse Rate 93 H 111 H 97 H Respiratory Rate 18 18 19 Blood Pressure 100/57 L 112/69 104/68 Pulse Oximetry 95 97 93 L 05/20/18 08:00 Temperature 98.3 F Pulse Rate 109 H Respiratory Rate 20 Blood Pressure 101/65 Pulse Oximetry 94 L Intake & Output 05/19/18 05/20/18 05/20/18 18:59 06:59 18:59 Intake Total 580 / 580 120 / 120 Output Total 900 / 900 700 / 700 Balance -320 / -320 -580 / -580 Weight 71.7 kg Intake: Oral 580 / 580 120 / 120 Output: Urine 900 / 900 700 / 700 Other: # Voids 2 Date of Last Bowel Movement 05/18/18 Results Procedures completed during hospitalization: No invasive procedures. Labs on day of discharge: Labs from last 24 hours 05/20/18 05/20/18 05/20/18 04:53 04:53 04:53 WBC 7.8 RBC 4.63 Hgb 12.6 Hct 38.9 MCV 84.2 MCH 27.3 MCHC 32.5 RDW 16.2 Plt Count 252 MPV 8.3 Neut % (Auto) 64.2 Lymph % (Auto) 24.8 Maries % (Auto) 6.3 Eos % (Auto) 4.2 H Baso % (Auto) 0.5 Neut # (Auto) 5.0 Lymph # (Auto) 1.9 Maries # (Auto) 0.5 Eos # (Auto) 0.3 Baso # (Auto) 0.0 WBC Differential . Differential Comment Auto diff final PT 12.2 H INR 1.2 Sodium 142 Potassium 4.0 Chloride 106 Carbon Dioxide 27.0 Anion Gap 9 BUN 26 H Creatinine 0.88 Estimated GFR 62 L Random Glucose 95 Calcium 8.6 Phosphorus 3.8 Magnesium 2.4 Albumin 3.5 05/19/18 12:15 WBC RBC Hgb Hct MCV MCH MCHC RDW Plt Count MPV Neut % (Auto) Lymph % (Auto) Maries % (Auto) Eos % (Auto) Baso % (Auto) Neut # (Auto) Lymph # (Auto) Maries # (Auto) Eos # (Auto) Baso # (Auto) WBC Differential Differential Comment PT INR Sodium 142 Potassium 3.7 Chloride 105 Carbon Dioxide 29.5 Anion Gap 8 BUN 24 H Creatinine 0.94 Estimated GFR 58 L Random Glucose 114 H Calcium 8.8 Phosphorus Magnesium Albumin - Impressions ITS Impressions Chest X-Ray 05/16/18 10:44 CONCLUSION: Improved aeration. Discharge Plan - Discharge Disposition Patient Disposition: 01 Discharge Home - Discharge Condition Condition: Good - Discharge Order Discharge Orders: Discharge Order (Routine); Ordered 05/20/18 Ordered By: Adán Olsen - Discharge Details Anticipated Discharge Date: 05/20/18 - Physicians Team Primary Care Provider: Torres,Narda A Attending Provider: Adán Olsen Other Providers: Deniz Richard MD ; Breana Toussaint
[2018-05-20] MEDS ORDERED: Lisinopril 5 MG Tablet PO SCH (10:00)
[2018-05-20 10:38] VITALS: O2SAT 98
== END 2018-05-20 10:58 | disposition home or self-care (01) ==
LOC: NEPE 10:00 → NEDA 10:00 → NEPFCDU 13:35 → N04 05-18 17:06
PROVIDERS: ADMIT Internal Medicine; ATTEND Internal Medicine